=== PATIENT | female | born 1985 | race Caucasian/White ===

== ENCOUNTER 2016-11-28 17:07 | Emergency (ER) | payer MEDICAID ==
[~2016-11-28] VITALS: Ht 170.2 cm; Wt 65.8 kg
[~2016-11-28 17:07] MED LIST: ARIP10TA2 PO; BSP10T PO; BUPR100T6 PO; BUPR150T9 PO; BUTA-234 PO; BUTA1CAP39 PO; CIPR500T78 PO; CITA20TA12 PO; CLON0.5T PO; CYCL10TA9 PO; DOCU-143 PO; FAMO20TA5 PO; GABA-486 PO; HYDR-1231 PO; HYDR30CR71 RC; IBUP-1773 PO; LEVO750T9 PO; LITH600C PO; METR250T32 PO; METR500T PO; NAPR-243 PO; NAPR500T PO; NCT21TD TD; NITR-65 PO; OXYC-197 PO; PRED20TA PO; SIME80TA16 PO; TEMA30CA PO; TMZP15C GT; TRAM-21 PO; TRAM50TA2 PO; TRAZ-144 PO; TRL300 PO; TRM50T PO; VENL225T3 PO; WELLBUTRIN
[2016-11-28] MEDS ORDERED: LIDOCAINE 1% INJ 20 ML (XYLOCAINE) VIAL ONE (17:30)
--- NOTE | 2016-11-28 17:56 | ED Upper Extremity ---
General Chief Complaint: Laceration Stated Complaint: L HAND LAC Nursing Triage Note: LACERATION TO L HAND Nursing Sepsis Screen: No Definite Risk Source: patient Exam Limitations: no limitations History of Present Illness Time seen by provider: 17:50 Initial Comments This 31-year-old white female presents after deliberately sustaining a laceration to the hypothenar eminence of her left hand shortly prior to presentation to the emergency department on a sharp piece of plastic at home. Patient denies loss of sensation or range of motion of the affected extremity. She denies other injury interaction. Her last tetanus shot was 2 years ago. Pain/Injury Location: left hand Allergies and Home Medications Allergies Coded Allergies: Penicillins (Verified Allergy, Unknown, RASH, 11/27/13) Sulfa (Sulfonamide Antibiotics) (Unverified Allergy, Unknown, 12/10/13) iodine (Verified Allergy, Unknown, rash, itching, 03/09/15) latex (Verified Allergy, Unknown, RASH, 11/27/13) Home Medications Clonazepam 0.5 Mg Tablet, 0.5 MG PO TID, (Reported) Temazepam 30 Mg Capsule, 30 MG PO HS PRN for SLEEP, (Reported) Constitutional: No chills EENTM: No blurred vision Respiratory: No cough Gastrointestinal: No abdominal pain, No nausea Genitourinary: No decreased output, No dysuria, No frequency Musculoskeletal: No back pain, No joint pain Skin: No rash, No other (laceration left hand) Psychiatric/Neurological: Other (bipolar disease) Past Izhwynu-Abpwkh-Umtdsc Hx Patient Social History Alcohol Use: Denies Use Recreational Drug Use: No Smoking Status: Current Everyday Smoker Type Used: Cigarettes Recent Foreign Travel: No Contact w/Someone Who Travel: No Recent Infectious Disease Expo: No Recent Hopitalizations: No Immunizations Up To Date Tetanus Booster (TDap): Unknown Seasonal Allergies Seasonal Allergies: No Surgeries HX Surgeries: Yes (LIPOMA REMOVED FROM BACK) Surgeries: Hysterectomy, Tubal Ligation Respiratory Hx Respiratory Disorders: No Cardiovascular Hx Cardiac Disorders: No Cardiac Disorders: Hypertension Neurological Hx Neurological Disorders: Yes Neurological Disorders: Headaches /Migraines Reproductive System Hx Reproductive Disorders: Yes Sexually Transmitted Disease: Yes (HERPES, HX TRICHOMONAS) 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 CERVICAL CANCER--SELF REPORTED BY PT) Cancer: Cervical Psychosocial Hx Psychiatric Problems: Yes (PBA) Behavioral Health Disorders: ADD/ADHD, Anxiety, Bipolar, Depression Integumentary HX Skin/Integumentary Disorder: No Blood Transfusions Hx Blood Disorders: No Reviewed Nursing Assessment Reviewed/Agree w Nursing PMH: Yes Family Medical History Family Medial History: FH: cancer grandparents Psychosocial problem 19 MOTHER grandparents Physical Exam Vital Signs Vital Sign - Last 12Hours 11/28/16 17:13 Temp 98.4 Pulse 94 Resp 18 B/P (MAP) 109/82 Pulse Ox 97 Capillary Refill : Less Than 3 Seconds General Appearance: WD/WN HEENT: normal ENT inspection Neck: normal inspection Cardiovascular: regular rate, rhythm, No tachycardia Respiratory: no respiratory distress Hand: Left (there is a 3 cm laceration to the hypothenar eminence of the left hand. Fortunately there is a normal neurologic vascular and tendon exam.) Neurologic/Psychiatric: no motor/sensory deficits, alert, normal mood/affect, oriented x 3 Progress/Results/Core Measures Results/Orders My Orders Orders - LOIS FERRELL MD Lidocaine 1% Injection (Xylocaine 1% Inj (11/28/16 17:30) Vital Signs/I&O Vital Sign - Last 12Hours 11/28/16 17:13 Temp 98.4 Pulse 94 Resp 18 B/P (MAP) 109/82 Pulse Ox 97 Blood Pressure Mean: 91 Progress Note : Time: 17:55 Progress Note Under usual sterile conditions using Hibiclens for cleansing of the wound the laceration was prepped and draped and anesthetized with 1 percent plain Xylocaine. Accommodation of simple interrupted and horizontal mattress sutures were used to repair the laceration with 5-0 nylon. Approximately 6 sutures were used for closure. The wound was cleaned and dressed. Patient tolerated the procedure well. There is minimal blood loss was less than 10 mL. Departure Impression Impression: Primary Impression: Laceration Disposition: 01 HOME, SELF-CARE Condition: Improved Departure-Patient Inst. Decision time for Depature: 17:56 Referrals: [facility] (PCP/Family) Primary Care Physician Patient Instructions: Laceration Repair With Pritesh (DC) Add. Discharge Instructions: Sutures out in 7-10 days. Watch for signs of infection. Tylenol or ibuprofen for pain. Return if any problems. All discharge instructions reviewed with patient and/or family. Voiced understanding. LOIS FERRELL MD Nov 28, 2016 17:56
[2016-11-28 18:02] VITALS: BP 109/82
--- OUTSIDE RECORDS SUMMARY | 2017-01-01 06:29 | XMS REPORT ---
Author Author NASH WEISS [facility] eClinicalWorks Address Unknown Phone Unavailable Care Team Providers Care Bean Sprout Laborer Name Role Phone NASH WEISS Unavailable Allergies No Known Allergies Problems Problem Type Condition Code Onset Dates Condition Status Problem H/O galactorrhea Z87.59 Active Problem Migraine headache G43.909 Active Problem Dyspareunia N94.1 Active Problem Bipolar affective disorder F31.9 Active Assessment Trichomonas infection A59.9 Active Medications Medication Code System Code Instructions Start Date End Date Status Dosage Flagyl [facility] [address]-70 500 MG Orally once Aug 12, 2015 Aug 13, 2015 4 tablet Results No Known Results Summary Purpose eClinicalWorks Submission
--- OUTSIDE RECORDS SUMMARY | 2017-01-01 06:29 | XMS REPORT ---
Author DEVANG Ramírez [facility] eClinicalWorks Address Unknown Phone Unavailable Care Team Providers Care Enroller Name Role Phone DEVANG XIONG CP Unavailable Allergies, Adverse Reactions, Alerts Substance Reaction Event Type SulfADIAZINE Info Not Available Drug Allergy Iodine Info Not Available Drug Allergy Problems Problem Type Condition Code Onset Dates Condition Status Problem Unspecified symptom associated with female genital organs 625.9 Active Assessment Intractable migraine without aura and with status migrainosus G43.011 Active Problem Routine gynecological examination V72.31 Active Problem Screening examination for venereal disease V74.5 Active Problem Migraine headache G43.909 Active Problem Galactorrhea not associated with childbirth 611.6 Active Problem Screening for malignant neoplasm of the cervix V76.2 Active Problem Unspecified breast screening V76.10 Active Problem Dyspareunia 625.0 Active Medications Medication Code System Code Instructions Start Date End Date Status Dosage Latuda [facility] [address]-64 20 MG Orally Once a day 1 tablet Propranolol HCl [facility] [address]-44 10 MG Orally Twice a day 1 tablet Wellbutrin [facility] [address]-72 100 MG Orally Twice a day 1 tablet Claritin [facility] [address]-26 10 MG Orally Once a day Jun 19, 2015 1 tablet Fioricet [facility] [address]-77 50-300-40 MG Orally every 4 hrs 1 capsule as needed Topiramate [facility] [address]-99 50 MG Orally Twice a day Jun 29, 2015 1 tablet Imitrex [facility] [address]-51 25 MG Orally take 1 tab at onset of headache, may repeat in 2 hrs x1 if needed Jun 19, [address] Carbonate [facility] [address]-33 300 MG Orally 4 times a day 1 capsule Temazepam [facility] [address]-36 30 MG Orally Once a day 1 capsule at bedtime as needed Procedures Procedure Coding System Code Date Office Visit, Est Pt., Level 3 CPT-4 16140 Jun 29, 2015 Vital Signs Date/Time: Jun 29, 2015 Temperature 98.0 F Weight 136 lbs Height 66 in BMI 21.95 Index Blood Pressure Diastolic 66 mmHg Blood Pressure Systolic 110 mmHg Cardiac Monitoring Heart Rate 88 bpm Results No Known Results Summary Purpose eClinicalWorks Submission
--- OUTSIDE RECORDS SUMMARY | 2017-01-01 06:30 | XMS REPORT ---
Author Author NASH WEISS [facility] eClinicalWorks Address Unknown Phone Unavailable Care Team Providers Care Paint Crew Supervisor Name Role Phone NASH WEISS Unavailable Allergies, Adverse Reactions, Alerts Substance Reaction Event Type SulfADIAZINE Info Not Available Drug Allergy Iodine Info Not Available Drug Allergy Problems Problem Type Condition Code Onset Dates Condition Status Problem H/O galactorrhea Z87.59 Active Problem Migraine headache G43.909 Active Problem Dyspareunia N94.1 Active Assessment Vaginal burning N94.9 Active Assessment Vaginal discharge N89.8 Active Problem Bipolar affective disorder F31.9 Active Assessment Herpes simplex B00.9 Active Medications Medication Code System Code Instructions Start Date End Date Status Dosage Wellbutrin [facility] [address]-29 100 MG Orally Twice a day 1 tablet Temazepam [facility] [address]-57 30 MG Orally Once a day 1 capsule at bedtime as needed Latuda [facility] [address]-57 20 MG Orally Once a day 1 tablet Propranolol HCl [facility] [address]-19 10 MG Orally Twice a day 1 tablet Topiramate [facility] [address]-76 50 MG Orally Twice a day Jun 29, 2015 1 tablet [place] Carbonate [facility] [address]-97 300 MG Orally 4 times a day 1 capsule Claritin [facility] [address]-23 10 MG Orally Once a day Jun 19, 2015 1 tablet Imitrex [facility] [address]-52 25 MG Orally take 1 tab at onset of headache, may repeat in 2 hrs x1 if needed Jun 19, 2015 as directed Lidocaine HCl [facility] [address]-97 2 % Externally 3-4 times a day Aug 12, 2015 1 application to affected area as needed Valacyclovir HCl [facility] [address]-05 500 MG Orally every 12 hrs Aug 12, 2015 Aug 15, 2015 1 tablet Procedures Procedure Coding System Code Date TRICHOMONAS VAGIN, DIR PROBE CPT-4 42049 Aug 12, 2015 CULTURE, BACTERIA, OTHER CPT-4 99533 Aug 12, 2015 No Charge CPT-4 45461 Aug 12, 2015 Office Visit, Est Pt., Level 3 CPT-4 33380 Aug 12, 2015 Vital Signs Date/Time: Aug 12, 2015 Temperature 98.6 F Weight 129.5 lbs Height 66 in BMI 20.90 Index Blood Pressure Diastolic 68 mmHg Blood Pressure Systolic 112 mmHg Cardiac Monitoring Heart Rate 92 bpm Results Name Result Date Reference Range Unit Abnormality Flag TRICHOMONAS (IN HOUSE) ----TRICHOMONAS POSITIVE [id number] ----Control + [id number] ----Lot # [id number] ----Exp date [id number] Summary Purpose eClinicalWorks Submission
--- OUTSIDE RECORDS SUMMARY | 2017-01-01 06:31 | XMS REPORT ---
Author Author BENEDICT MON [facility] eClinicalWorks Address Unknown Phone Unavailable Care Team Providers Care Corporate Communications Specialist Name Role Phone BENEDICT MON Unavailable Allergies No Known Allergies Problems Problem Type Condition Code Onset Dates Condition Status Assessment Bipolar affective disorder F31.9 Active Problem Screening for malignant neoplasm of the cervix V76.2 Active Problem Unspecified symptom associated with female genital organs 625.9 Active Problem Bipolar affective disorder F31.9 Active Problem Routine gynecological examination V72.31 Active Problem Migraine headache G43.909 Active Problem Dyspareunia 625.0 Active Problem Galactorrhea not associated with childbirth 611.6 Active Problem Screening examination for venereal disease V74.5 Active Problem Unspecified breast screening V76.10 Active Medications Medication Code System Code Instructions Start Date End Date Status Dosage Claritin [facility] [address]-22 10 MG Orally Once a day Jun 19, 2015 1 tablet Imitrex [facility] [address]-80 25 MG Orally take 1 tab at onset of headache, may repeat in 2 hrs x1 if needed Jun 19, 2015 as directed Propranolol HCl [facility] [address]-71 10 MG Orally Twice a day 1 tablet Temazepam [facility] [address]-02 30 MG Orally Once a day 1 capsule at bedtime as needed Wellbutrin [facility] [address]-87 100 MG Orally Twice a day 1 tablet Latuda [facility] [address]-09 20 MG Orally Once a day 1 tablet Topiramate [facility] [address]-02 50 MG Orally Twice a day Jun 29, 2015 1 tablet [place] Carbonate [facility] [address]-52 300 MG Orally 4 times a day 1 capsule Procedures Procedure Coding System Code Date Psych diagnostic evaluation, established patient CPT-4 17270 Jul 07, 2015 Results No Known Results Summary Purpose eClinicalWorks Submission
--- OUTSIDE RECORDS SUMMARY | 2017-01-01 06:31 | XMS REPORT | Continuity of Care Document ---
Demographics Preferred Language Unknown Marital Status Unknown Protestant Affiliation Unknown Race Unknown Ethnic Group Unknown Author Author [facility] Organization [facility] Address Unknown Phone Unavailable Allergies Active Description Code Type Severity Reaction Onset Reported/Identified Relationship to Patient Clinical Status Yes latex [id number] Drug Allergy Unknown RASH 11/27/2013 Yes Penicillins [id number] Drug Allergy Unknown RASH 11/27/2013 Yes Sulfa (Sulfonamide Antibiotics) [id number] Drug Allergy Unknown N/A 12/10/2013 Yes iodine [id number] Drug Allergy Unknown rash, itching 03/09/2015 Medications Problems Date Dx Coded Attending Type Code Diagnosis Diagnosed By 07/27/1124 SHEREEN COLEMAN, INES Tse Ot M79.1 MYALGIA 11/27/2013 SHAI TOVAR DO Ot 611.71 12/10/2013 PHIL COLEMAN, JERMAN A Ot 346.90 12/10/2013 PHIL COLEMAN, JERMAN A Ot 784.0 01/11/2014 PHIL COLEMAN, JERMAN A Ot 346.90 01/11/2014 PHIL COLEMAN, JERMAN A Ot 784.0 02/16/2014 DONNA COLEMAN, MCKAYLA Gavin Ot 724.1 02/16/2014 DONNA COLEMAN, MCKAYLA T Ot 728.85 03/06/2014 PHIL COLEMAN, JERMAN A Ot 784.0 03/17/2014 GENEVIEVE BUSTOS APRN A 611.6 GALACTORRHEA NOT ASSOCIATED WITH CHILDBIRTH 03/17/2014 GENEVIEVE BUSTOS APRN A 625.0 DYSPAREUNIA 03/17/2014 GENEVIEVE BUSTOS APRN A V72.31 DENTAL COORDINATOR EXAM, ROUTINE 03/17/2014 GENEVIEVE BUSTOS APRN A V74.5 STD SCREEN 03/17/2014 GENEVIEVE BUSTOS APRN A V76.10 BREAST CANCER SCREENING 03/17/2014 GENEVIEVE BUSTOS APRN A V76.2 CERVICAL CANCER SCREENING (PAP SMEAR) 03/17/2014 DENISSE DUNN MD 611.6 GALACTORRHEA NOT ASSOCIATED WITH CHILDBIRTH 03/17/2014 DENISSE DUNN MD 625.0 DYSPAREUNIA 03/17/2014 DENISSE DUNN MD V72.31 DENTAL COORDINATOR EXAM, ROUTINE 03/17/2014 DENISSE DUNN MD V74.5 STD SCREEN 03/17/2014 DENISSE DUNN MD V76.10 BREAST CANCER SCREENING 03/17/2014 DENISSE DUNN MD V76.2 CERVICAL CANCER SCREENING (PAP SMEAR) 03/17/2014 WHITE DDS, CHRISTINE J 611.6 GALACTORRHEA NOT ASSOCIATED WITH CHILDBIRTH 03/17/2014 WHITE DDS, CHRISTINE J 625.0 DYSPAREUNIA 03/17/2014 WHITE DDS, CHRISTINE J V72.31 DENTAL COORDINATOR EXAM, ROUTINE 03/17/2014 WHITE DDS, CHRISTINE J V74.5 STD SCREEN 03/17/2014 WHITE DDS, CHRISTINE J V76.10 BREAST CANCER SCREENING 03/17/2014 WHITE DDSRACHELLEON J V76.2 CERVICAL CANCER SCREENING (PAP SMEAR) 03/26/2014 DEVANG HAMILTON DO Ot 296.20 03/26/2014 DEVANG HAMILTON DO Ot V62.84 04/08/2014 ANDREA JOSHUA EQUIPMENT HIRE MANAGER Ot 784.0 04/09/2014 PEDRITO VINSON Ot 346.90 04/18/2014 DENISSE DUNN MD 625.9 PELVIC PAIN 04/18/2014 CHRISTINE BYRNE DDS 625.9 PELVIC PAIN 05/14/2014 DAO GARCIA MD Ot 787.01 05/20/2014 DAO GARCIA MD Ot 923.20 05/20/2014 DAO GARCIA MD Ot 959.4 05/20/2014 DAO GARCIA MD Ot E000.8 05/20/2014 DAO GARCIA MD Ot E849.0 05/20/2014 DAO GARCIA MD Ot E917.4 05/24/2014 ANDREA JOSHUA APRN Ot 923.20 05/24/2014 ANDREA JOSHUA APRN Ot 959.4 05/24/2014 ANDREA JOSHUA APRN Ot E000.8 05/24/2014 ANDREA JOSHUA APRN Ot E849.0 05/24/2014 ANDREA JOSHUA EQUIPMENT HIRE MANAGER Ot E917.4 07/31/2014 LUAN RAMIREZ EQUIPMENT HIRE MANAGER Ot V58.69 07/31/2014 JAMES LUAN R EQUIPMENT HIRE MANAGER Ot V58.83 08/18/2014 ANDREA JOSHUA EQUIPMENT HIRE MANAGER Ot 943.01 08/18/2014 ANDREA JOSHUA EQUIPMENT HIRE MANAGER Ot E000.8 08/18/2014 ANDREA JOSHUA EQUIPMENT HIRE MANAGER Ot E015.9 08/18/2014 ANDREA JOSHUA EQUIPMENT HIRE MANAGER Ot E849.0 08/18/2014 ANDREA JOSHUA EQUIPMENT HIRE MANAGER Ot E924.0 09/03/2014 JAMES LUAN R EQUIPMENT HIRE MANAGER Ot V58.69 09/03/2014 LUAN RAMIREZ R EQUIPMENT HIRE MANAGER Ot V58.83 09/20/2014 PHIL COLEMAN, JERMAN A Ot 784.0 09/24/2014 [facility] SHAI K Ot 346.90 09/24/2014 [facility] SHAI K Ot 784.0 11/16/2014 LUAN RAMIREZ EQUIPMENT HIRE MANAGER Ot V58.69 11/16/2014 LUAN RAMIREZ EQUIPMENT HIRE MANAGER Ot V58.83 11/17/2014 JOSE COLEMAN, DAO D Ot 729.5 11/17/2014 JOSE COLEMAN, DAO D Ot 923.20 11/17/2014 JOSE COLEMAN, ADO D Ot E000.8 11/17/2014 JOSE COLEMAN, DAO D Ot E849.0 11/17/2014 JOSE COLEMAN, DAO D Ot E888.9 01/19/2015 PEDRITO VINSON Ot 346.90 01/19/2015 PEDRITO VINSON Ot 784.0 01/25/2015 JOSE COLEMAN, DAO D Ot 845.00 01/25/2015 JOSE COLEMAN, DAO D Ot 959.7 01/25/2015 JOSE COLEMAN, DAO D Ot E001.1 01/25/2015 DAO GARCIA MD D Ot E927.0 01/25/2015 [place] , SHAI K Ot 845.00 01/25/2015 [facility], SHAI K Ot E001.1 01/25/2015 [facility], SHAI K Ot E927.0 01/25/2015 [place] , SHAI K Ot V15.81 02/09/2015 DONNA COLEMAN, MCKAYLA T Ot 719.47 02/09/2015 DONNA COLEMAN, MCKAYLA T Ot 824.2 02/09/2015 DONNA COLEMAN, MCKAYLA T Ot E000.8 02/09/2015 DONNA COLEMAN, MCKAYLA T Ot E885.9 03/08/2015 STAMARYANA, LUAN R EQUIPMENT HIRE MANAGER Ot V58.69 03/08/2015 STAMMER, LUAN R EQUIPMENT HIRE MANAGER Ot V58.83 03/08/2015 [place] DO, SHAI K Ot 614.9 03/08/2015 [place] DO, SHAI K Ot 620.2 03/08/2015 [facility], SHAI K Ot 789.00 03/08/2015 STAMMER, LUAN R EQUIPMENT HIRE MANAGER Ot V58.69 03/08/2015 STAMARYANA, LUAN R EQUIPMENT HIRE MANAGER Ot V58.83 03/09/2015 PEDRITO VINSON Ot 708.9 03/09/2015 PEDRITO VINSON Ot 782.1 03/18/2015 STAMARYANA LUAN R EQUIPMENT HIRE MANAGER Ot V58.69 03/18/2015 STAMARYANA, LUAN R EQUIPMENT HIRE MANAGER Ot V58.83 03/18/2015 ANDREA JOSHUA EQUIPMENT HIRE MANAGER Ot 892.0 03/18/2015 ANDREA JOSHUA EQUIPMENT HIRE MANAGER Ot E000.8 03/18/2015 ANDREA JOSHUA EQUIPMENT HIRE MANAGER Ot E920.8 03/18/2015 ANDREA JOSHUA EQUIPMENT HIRE MANAGER Ot V06.1 03/31/2015 LUAN RAMIREZ R EQUIPMENT HIRE MANAGER Ot V58.69 03/31/2015 STAMARYANA LUAN R EQUIPMENT HIRE MANAGER Ot V58.83 03/31/2015 PEDRITO VINSON Ot 847.9 03/31/2015 PEDRITO VINSON Ot 959.19 03/31/2015 PEDRITO VINSON Ot E000.8 03/31/2015 PEDRITO VINSON Ot E013.5 03/31/2015 PEDRITO VINSON Ot E849.0 03/31/2015 PEDRITO VINSON Ot E927.0 06/09/2015 SHAI TOVAR DO Ot R51 06/14/2015 DAO GARCIA MD Ot G43.909 MIGRAINE, UNSP, NOT INTRACTABLE, WITHOUT 06/14/2015 DAO GARCIA MD Ot R51 HEADACHE 06/30/2015 LUAN RAMIREZ EQUIPMENT HIRE MANAGER Ot V58.69 06/30/2015 STALUAN MIJARES EQUIPMENT HIRE MANAGER Ot V58.83 08/18/2015 DAO GARCIA MD Ot B00.2 HERPESVIRAL GINGIVOSTOMATITIS AND PHARYN 08/18/2015 DAO GARCIA MD Ot K64.9 UNSPECIFIED HEMORRHOIDS 10/21/2015 ANDREA JOSHUA APRN Ot F17.210 NICOTINE DEPENDENCE, CIGARETTES, UNCOMPL 10/21/2015 ANDREA JOSHUA APRN Ot S60.221A CONTUSION OF RIGHT HAND, INITIAL ENCOUNT 10/21/2015 ANDREA JOSHUA APRN Ot W22.09XA STRIKING AGAINST OTHER STATIONARY OBJECT 10/21/2015 ANDREA JOSHUA APRN Ot Y92.010 KITCHEN OF SINGLE-FAMILY (PRIVATE) HOUSE 10/21/2015 ANDREA JOSHUA APRN Ot Y99.8 OTHER EXTERNAL CAUSE STATUS 12/31/2015 MCKAYLA THOMPSON MD Ot F17.210 NICOTINE DEPENDENCE, CIGARETTES, UNCOMPL 12/31/2015 MCKAYLA THOMPSON MD Ot N39.0 URINARY TRACT INFECTION, SITE NOT SPECIF 12/31/2015 MCKAYLA THOMPSON MD Ot R10.84 GENERALIZED ABDOMINAL PAIN 01/08/2016 MCKAYLA THOMPSON MD Ot A59.03 TRICHOMONAL CYSTITIS AND URETHRITIS 01/08/2016 MCKAYLA THOMPSON MD Ot F17.210 NICOTINE DEPENDENCE, CIGARETTES, UNCOMPL 01/08/2016 MCKAYLA THOMSPON MD Ot N72 INFLAMMATORY DISEASE OF CERVIX UTERI 01/08/2016 MCKAYLA THOMPSON MD Ot N93.9 ABNORMAL UTERINE AND VAGINAL BLEEDING , U 01/08/2016 MCKAYLA THOMPSON MD Ot A59.03 TRICHOMONAL CYSTITIS AND URETHRITIS 01/08/2016 MCKAYLA THOMPSON MD Ot F17.210 NICOTINE DEPENDENCE, CIGARETTES, UNCOMPL 01/08/2016 DONNA COLEMAN, MCKAYLA Gavin Ot N72 INFLAMMATORY DISEASE OF CERVIX UTERI 01/08/2016 DONNA COLEMAN, MCKAYLA Gavin Ot N93.9 ABNORMAL UTERINE AND VAGINAL BLEEDING , U 01/10/2016 PEDRITO VINSON Ot F17.210 NICOTINE DEPENDENCE, CIGARETTES, UNCOMPL 01/10/2016 PEDRITO VINSON Ot N89.8 OTHER SPECIFIED NONINFLAMMATORY DISORDER 01/10/2016 PEDRITO VINSON Ot N92.0 EXCESSIVE AND FREQUENT MENSTRUATION WITH 01/12/2016 PEDRITO VINSON Ot F17.210 NICOTINE DEPENDENCE, CIGARETTES, UNCOMPL 01/12/2016 PEDRITO VINSON Ot N89.8 OTHER SPECIFIED NONINFLAMMATORY DISORDER 01/12/2016 PEDRITO VINSON Ot N92.0 EXCESSIVE AND FREQUENT MENSTRUATION WITH 01/16/2016 PEDRITO VINSON Ot F17.210 NICOTINE DEPENDENCE, CIGARETTES, UNCOMPL 01/16/2016 PEDRITO VINSON Ot N89.8 OTHER SPECIFIED NONINFLAMMATORY DISORDER 01/16/2016 PEDRITO VINSON Ot N92.0 EXCESSIVE AND FREQUENT MENSTRUATION WITH 01/19/2016 DAO GARCIA MD Ot F17.210 NICOTINE DEPENDENCE, CIGARETTES, UNCOMPL 01/19/2016 DAO GARCIA MD Ot S93.402A SPRAIN OF UNSPECIFIED LIGAMENT OF LEFT A 01/19/2016 DAO GARCIA MD Ot W01.0XXA FALL SAME LEV FROM SLIP/TRIP W/O STRIKE 01/19/2016 DAO GARCIA MD Ot Y99.8 OTHER EXTERNAL CAUSE STATUS 02/28/2016 SHAI TOVAR DO Ot F10.129 ALCOHOL ABUSE WITH INTOXICATION, UNSPECI 02/28/2016 SHAI TOVAR DO Ot R46.89 OTHER SYMPTOMS AND SIGNS INVOLVING APPEA 02/28/2016 SHAI TOVAR DO Ot Y90.7 BLOOD ALCOHOL LEVEL OF 200-239 MG/100 ML 03/01/2016 SHEREEN COLEMAN, INES Tse Ot N87.1 MODERATE CERVICAL DYSPLASIA 03/01/2016 INES REGAN MD Ot N93.9 ABNORMAL UTERINE AND VAGINAL BLEEDING, U 03/01/2016 SHEREEN COLEMAN INES N Ot N94.1 DYSPAREUNIA 03/01/2016 SHEREEN COLEMAN INES N Ot R10.2 PELVIC AND PERINEAL PAIN 03/01/2016 SHEREEN COLEMAN INES N Ot Z01.818 ENCOUNTER FOR OTHER PREPROCEDURAL EXAMIN 03/01/2016 SHEREEN COLEMAN INES N Ot Z11.2 ENCOUNTER FOR SCREENING FOR OTHER BACTER 03/02/2016 SHEREEN COLEMAN INES N Ot N87.1 MODERATE CERVICAL DYSPLASIA 03/02/2016 SHEREEN COLEMAN INES N Ot N93.9 ABNORMAL UTERINE AND VAGINAL BLEEDING, U 03/02/2016 SHEREEN COLEMAN INES N Ot N94.1 DYSPAREUNIA 03/02/2016 SHEREEN COLEMAN INES N Ot R10.2 PELVIC AND PERINEAL PAIN 03/02/2016 SHEREEN COLEMAN INES N Ot Z01.818 ENCOUNTER FOR OTHER PREPROCEDURAL EXAMIN 03/02/2016 SHEREEN COLEMAN INES N Ot Z11.2 ENCOUNTER FOR SCREENING FOR OTHER BACTER 03/08/2016 SHEREEN COLEMAN INES N Ot N87.0 MILD CERVICAL DYSPLASIA 03/10/2016 SHEREEN COLEMAN INES N Ot N87.0 MILD CERVICAL DYSPLASIA 03/26/2016 SHEREEN COLEMAN INES N Ot F17.210 NICOTINE DEPENDENCE, CIGARETTES, UNCOMPL 03/26/2016 SHEREEN COLEMAN INES N Ot I10 ESSENTIAL (PRIMARY) HYPERTENSION 03/26/2016 SHEREEN COLMEAN INES N Ot N76.0 ACUTE VAGINITIS 03/26/2016 SHEREEN COLEMAN INES N Ot T81.4XXA INFECTION FOLLOWING A PROCEDURE, INITIAL 03/26/2016 SHEREEN COLEMAN INES N Ot F17.210 NICOTINE DEPENDENCE, CIGARETTES, UNCOMPL 03/26/2016 SHEREEN COLEMAN INES N Ot I10 ESSENTIAL (PRIMARY) HYPERTENSION 03/26/2016 SHEREEN COLEMAN INES N Ot N76.0 ACUTE VAGINITIS 03/26/2016 SHEREEN COLEMAN INES N Ot T81.4XXA INFECTION FOLLOWING A PROCEDURE, INITIAL 03/28/2016 SHEREEN COLEMAN INES N Ot N89.8 OTHER SPECIFIED NONINFLAMMATORY DISORDER 03/28/2016 SHEREEN COLEMAN INES N Ot R10.9 UNSPECIFIED ABDOMINAL PAIN 03/28/2016 SHEREEN COLEMAN INES N Ot Z98.89 OTHER SPECIFIED POSTPROCEDURAL STATES 03/31/2016 SHEREEN COLEMAN INES N Ot N89.8 OTHER SPECIFIED NONINFLAMMATORY DISORDER 03/31/2016 SHEREEN COLEMAN INES N Ot R10.9 UNSPECIFIED ABDOMINAL PAIN 03/31/2016 SHEREEN COLEMAN INES N Ot Z98.89 OTHER SPECIFIED POSTPROCEDURAL STATES 04/01/2016 SHEREEN COLEMAN INES N Ot N89.8 OTHER SPECIFIED NONINFLAMMATORY DISORDER 04/01/2016 SHEREEN COLEMAN INES N Ot R10.9 UNSPECIFIED ABDOMINAL PAIN 04/01/2016 SHEREEN COLEMAN INES N Ot Z98.89 OTHER SPECIFIED POSTPROCEDURAL STATES 04/04/2016 SHEREEN COLEMAN INES N Ot N89.8 OTHER SPECIFIED NONINFLAMMATORY DISORDER 04/04/2016 SHEREEN COLEMAN INES N Ot R10.9 UNSPECIFIED ABDOMINAL PAIN 04/04/2016 SHEREEN COLEMAN INES N Ot Z98.89 OTHER SPECIFIED POSTPROCEDURAL STATES 04/12/2016 SHEREEN COLEMAN INES N Ot N89.8 OTHER SPECIFIED NONINFLAMMATORY DISORDER 04/12/2016 SHEREEN COLEMAN INES N Ot R10.9 UNSPECIFIED ABDOMINAL PAIN 04/12/2016 SHEREEN COLEMAN INES N Ot Z98.89 OTHER SPECIFIED POSTPROCEDURAL STATES 06/23/2016 SHEREEN COLEMAN INES N Ot N94.12 DEEP DYSPAREUNIA 06/23/2016 SHEREEN COLEMAN INES N Ot R10.2 PELVIC AND PERINEAL PAIN 06/24/2016 SHEREEN COLEMAN INES N Ot N89.8 OTHER SPECIFIED NONINFLAMMATORY DISORDER 06/24/2016 SHEREEN COLEMAN INES N Ot R10.9 UNSPECIFIED ABDOMINAL PAIN 06/24/2016 SHEREEN COLEMAN INES N Ot Z98.89 OTHER SPECIFIED POSTPROCEDURAL STATES 06/24/2016 SHEREEN COLEMAN INES N Ot N94.12 DEEP DYSPAREUNIA 06/24/2016 SHEREEN COLEMAN INES N Ot R10.2 PELVIC AND PERINEAL PAIN 07/05/2016 SHEREEN COLEMAN INES N Ot N89.8 OTHER SPECIFIED NONINFLAMMATORY DISORDER 07/05/2016 SHEREEN COLEMAN INES N Ot R10.9 UNSPECIFIED ABDOMINAL PAIN 07/05/2016 SHEREEN COLEMAN INES N Ot Z98.89 OTHER SPECIFIED POSTPROCEDURAL STATES 07/05/2016 SHEREEN COLEMAN INES N Ot N94.12 DEEP DYSPAREUNIA 07/05/2016 SHEREEN COLEMAN INES N Ot R10.2 PELVIC AND PERINEAL PAIN 07/12/2016 SHEREEN COLEMAN INES N Ot N94.12 DEEP DYSPAREUNIA 07/12/2016 SHEREEN COLEMAN INES N Ot R10.2 PELVIC AND PERINEAL PAIN 07/14/2016 SHEREEN COLEMAN INES N Ot M79.1 MYALGIA 07/15/2016 SHEREEN COLEMAN INES N Ot M79.1 MYALGIA 07/19/2016 SHEREEN COLEMAN INES N Ot M79.1 MYALGIA 08/10/2016 SHEREEN COLEMAN, INES N Ot M79.1 MYALGIA 08/18/2016 SHEREEN COLEMAN INES N Ot M79.1 MYALGIA 11/28/2016 SHEREEN COLEMAN INES N Ot N89.8 OTHER SPECIFIED NONINFLAMMATORY DISORDER 11/28/2016 SHEREEN COLEMAN INES N Ot R10.9 UNSPECIFIED ABDOMINAL PAIN 11/28/2016 SHEREEN COLEMAN, INES N Ot Z98.89 OTHER SPECIFIED POSTPROCEDURAL STATES 11/28/2016 SHEREEN COLEMAN INES N Ot N94.12 DEEP DYSPAREUNIA 11/28/2016 SHEREEN COLEMAN INES N Ot R10.2 PELVIC AND PERINEAL PAIN 11/28/2016 MARIAELENA COLEMAN, LOIS Espinosa Ot F17.210 NICOTINE DEPENDENCE, CIGARETTES, UNCOMPL 11/28/2016 LOIS FERRELL MD Ot I10 ESSENTIAL (PRIMARY) HYPERTENSION 11/28/2016 LOIS FERRELL MD Ot S61.412A LACERATION WITHOUT FOREIGN BODY OF LEFT 11/28/2016 LOIS FERRELL MD Ot W45.8XXA OT FOREIGN BODY OR OBJECT ENTERING THRO 11/28/2016 LOIS FERRELL MD Ot Y92.[address] IN UNSP NON-INSTITUT (PRIVATE 11/28/2016 LOIS FERRELL MD Ot Y99.8 OTHER EXTERNAL CAUSE STATUS 11/28/2016 LOIS FERRELL MD Ot Z79.899 OTHER ASSISTED (CURRENT) DRUG THERAPY Procedures Code Description [place] [address] TRICHOMONAS (IN-HOUSE) 03/17/2014 61022 HEMOCCULT 2013 66037 CULTURE UROGENITAL 03/20/2014 70237 GC/CHLAM PROBE (STATE) 03/20/2014 78786 PAP SMEAR 2013 Q0091 PAP SMEAR OBTAIN SMEAR 03/20/2014 92397 ROUTINE VENIPUNCTURE 03/20/2014 81786 PROLACTIN 2013 40430 TSH 03/20/2014 16757 UA W/ CULTURE IF INDICATED 04/18/2014 83916 TEST, URINE (IN-HOUSE) 04/18/2014 Results Test Result Range Complete urinalysis with reflex to culture - 03/25/16 14:20 Urine color determination YELLOW NRG Urine clarity determination CLEAR NRG Urine pH measurement by test strip 7 5- 9 Specific gravity of urine by test strip 1.010 1.016-1.022 Urine protein assay by test strip, semi-quantitative NEGATIVE NEGATIVE Urine glucose detection by automated test strip NEGATIVE NEGATIVE Erythrocytes detection in urine sediment by light microscopy 4+ NEGATIVE Urine ketones detection by automated test strip NEGATIVE NEGATIVE Urine nitrite detection by test strip NEGATIVE NEGATIVE Urine total bilirubin detection by test strip NEGATIVE NEGATIVE Urine urobilinogen measurement by automated test strip (mass/volume) NORMAL NORMAL Urine leukocyte esterase detection by dipstick 3+ NEGATIVE Automated urine sediment erythrocyte count by microscopy (number/high power field) [HPF] NRG Automated urine sediment leukocyte count by microscopy (number/high power field ) [HPF] NRG Bacteria detection in urine sediment by light microscopy NEGATIVE NRG Squamous epithelial cells detection in urine sediment by light microscopy 10-25 NRG Crystals detection in urine sediment by light microscopy NONE NRG Casts detection in urine sediment by light microscopy NONE NRG Mucus detection in urine sediment by light microscopy NEGATIVE NRG Complete urinalysis with reflex to culture NO NRG Bacterial urine culture - 03/25/16 14:20 URINE CULTURE RESULTS 10,000/ML - 100,000/ML NRG Complete blood count (CBC) with automated white blood cell (WBC) differential - 03/26/16 05:30 Blood leukocytes automated count (number/volume) 7.4 10*3/ uL 4.3-11.0 Blood erythrocytes automated count (number/volume) 4.40 10*6 /uL 4.35-5.85 Venous blood hemoglobin measurement (mass/volume) 12.8 g/dL 11.5-16.0 Blood hematocrit (volume fraction) 38 % 35-52 Automated erythrocyte mean corpuscular volume 87 [foz_us] 80-99 Automated erythrocyte mean corpuscular hemoglobin (mass per erythrocyte) 29 pg 25-34 Automated erythrocyte mean corpuscular hemoglobin concentration measurement ( mass/volume) 34 g/dL 32-36 Automated erythrocyte distribution width ratio 12.6 % 10.0-14.5 Automated blood platelet count (count/volume) 321 10*3/uL 130-400 Automated blood platelet mean volume measurement 9.6 [foz_us ] 7.4-10.4 Automated blood neutrophils/100 leukocytes 48 % 42-75 Automated blood lymphocytes/100 leukocytes 38 % 12-44 Blood monocytes/100 leukocytes 9 % 0-12 Automated blood eosinophils/100 leukocytes 4 % 0-10 Automated blood basophils/100 leukocytes 0 % 0-10 Blood neutrophils automated count (number/volume) 3.6 10*3 1.8-7.8 Blood lymphocytes automated count (number/volume) 2.9 10*3 1.0-4.0 Blood monocytes automated count (number/volume) 0.7 10*3 0.0-1.0 Automated eosinophil count 0.3 10*3/uL 0.0-0.3 Automated blood basophil count (count/volume) 0.0 10*3/uL 0.0-0.1 Encounters ACCT No. Visit Date/Time Discharge Status Pt. Type Provider Facility Loc./Unit Complaint [id number] 05/22/2014 11:19:26 05/22/2014 23: 59:59 [facility] Outpatient Daniela Guidry
--- OUTSIDE RECORDS SUMMARY | 2017-01-01 06:32 | XMS REPORT ---
Author Author DENISSE DUNN [facility] eClinicalWorks Address Unknown Phone Unavailable Care Team Providers Care Enologist Name Role Phone DENISSE DUNN CP Unavailable Allergies, Adverse Reactions, Alerts Substance Reaction Event Type SulfADIAZINE Info Not Available Drug Allergy Problems Problem Type Condition ICD-9 Code Onset Dates Condition Status Assessment Candidal vaginitis 112.1 Active Assessment Vaginitis 616.10 Active Problem Screening examination for venereal disease V74.5 Active Problem Unspecified breast screening V76.10 Active Problem Routine gynecological examination V72.31 Active Problem Screening for malignant neoplasm of the cervix V76.2 Active Problem Unspecified symptom associated with female genital organs 625.9 Active Problem Dyspareunia 625.0 Active Problem Galactorrhea not associated with childbirth 611.6 Active Medications Medication Code System Code Instructions Start Date End Date Status Dosage Celexa [facility] [address]-08 40 MG Orally Once a day 0.5 tablet [place] Carbonate [facility] [address]-37 300 MG Orally 4 times a day 1 capsule Diflucan [facility] [address]-99 150 MG Orally Apr 29, 2015 1 tablet Wellbutrin [facility] [address]-85 100 MG Orally Twice a day 1 tablet Procedures Procedure Coding System Code Date No Charge CPT-4 31924 Apr 29, 2015 CULTURE, BACTERIA, OTHER CPT-4 64346 Apr 29, 2015 TRICHOMONAS VAGIN, DIR PROBE CPT-4 90944 Apr 29, 2015 Office Visit, Est Pt., Level 3 CPT-4 11940 Apr 29, 2015 Vital Signs Date/Time: Apr 29, 2015 Temperature 97.8 F Weight 127.6 lbs Height 66 in BMI 20.59 Index Blood Pressure Diastolic 64 mmHg Blood Pressure Systolic 102 mmHg Cardiac Monitoring Heart Rate 74 bpm Results Name Result Date Reference Range Unit Abnormality Flag TRICHOMONAS (IN HOUSE) Summary Purpose eClinicalWorks Submission
--- OUTSIDE RECORDS SUMMARY | 2017-01-01 06:33 | XMS REPORT ---
Author DEVANG Ramírez [facility] eClinicalWorks Address Unknown Phone Unavailable Care Team Providers Care Machine Iii Coremaker Name Role Phone DEVANG XIONG CP Unavailable Allergies, Adverse Reactions, Alerts Substance Reaction Event Type SulfADIAZINE Info Not Available Drug Allergy Iodine Info Not Available Drug Allergy Problems Problem Type Condition Code Onset Dates Condition Status Assessment Migraine without aura and without status migrainosus, not intractable G43.009 Active Problem Screening for malignant neoplasm of [...] Instructions Start Date End Date Status Dosage Topiramate [facility] [address]-49 50 MG Orally Twice a day Jun 29, 2015 1 tablet Imitrex [facility] [address]-35 25 MG Orally take 1 tab at onset of headache, may repeat in 2 hrs x1 if needed Jun 19, 2015 as directed Temazepam [facility] [address]-06 30 MG Orally Once a day 1 capsule at bedtime as needed Claritin [facility] [address]-42 10 MG Orally Once a day Jun 19, 2015 1 tablet Wellbutrin [facility] [address]-25 100 MG Orally Twice a day 1 tablet Latuda [facility] [address]-01 20 MG Orally Once a day 1 tablet [place] Carbonate [facility] [address]-13 300 MG Orally 4 times a day 1 capsule Propranolol HCl [facility] [address]-66 10 MG Orally Twice a day 1 tablet Procedures Procedure Coding System Code Date Office Visit, Est Pt., Level 3 CPT-4 26063 Aug 05, 2015 Vital Signs Date/Time: Aug 05, 2015 Temperature 98.4 F Weight 129.8 lbs Height 66 in BMI 20.95 Index Blood Pressure Diastolic 72 mmHg Blood Pressure Systolic 116 mmHg Cardiac Monitoring Heart Rate 100 bpm Results No Known Results Summary Purpose eClinicalWorks Submission
--- OUTSIDE RECORDS SUMMARY | 2017-01-01 06:33 | XMS REPORT ---
Author Author ILDEFONSO PIERCE Organization e[employer] Address Unknown Phone Unavailable Care Team Providers Care Instructional Assistant Name Role Phone ILDEFONSO PIERCE CP Unavailable Allergies, Adverse Reactions, Alerts Substance Reaction Event Type SulfADIAZINE Info Not Available Drug Allergy Iodine Info Not Available Drug Allergy Problems Problem Type Condition Code Onset Dates Condition Status Problem H/O galactorrhea Z87.59 Active Problem Migraine headache G43.909 Active Problem Dyspareunia N94.1 Active Problem Bipolar affective disorder F31.9 Active Assessment Migraine G43.909 Active Medications Medication Code System Code Instructions Start Date End Date Status Dosage [place] Carbonate [facility] [address]-20 300 MG Orally 4 times a day 1 capsule Imitrex [facility] [address]-97 25 MG Orally take 1 tab at onset of headache, may repeat in 2 hrs x1 if needed Jun 19, 2015 as directed Wellbutrin [facility] [address]-19 100 MG Orally Twice a day 1 tablet Latuda [facility] [place] [address]-75 20 MG Orally Once a day 1 tablet Temazepam [facility] [place] [address]-78 30 MG Orally Once a day 1 capsule at bedtime as needed Procedures Procedure Coding System Code Date THER/PROPH/DIAG INJ, SC/IM CPT-4 82843 Sep 05, 2015 Office Visit, Est Pt., Level 3 CPT-4 09154 Sep 05, 2015 TORADOL (IM) 60 MG/2ML (UP TO 15 MG) CPT-4 J1885 Sep 05, 2015 Vital Signs Date/Time: Sep 05, 2015 Temperature 99.2 F Weight 130.4 lbs Height 66 in BMI 21.04 Index Blood Pressure Diastolic 70 mmHg Blood Pressure Systolic 118 mmHg Cardiac Monitoring Heart Rate 88 bpm Results No Known Results Summary Purpose eClinicalWorks Submission
--- OUTSIDE RECORDS SUMMARY | 2017-01-01 06:34 | XMS REPORT ---
Author Author DEVANG XIONG Organization [employer] Address Unknown Phone Unavailable Care Team Providers Care Mandarin Speaking Nanny Name Role Phone DEVANG XIONG CP Unavailable Allergies, Adverse Reactions, Alerts Substance Reaction Event Type Latex Info Not Available Drug Allergy SulfADIAZINE Info Not Available Drug Allergy Iodine Info Not Available Drug Allergy Problems Problem Type Condition Code Onset Dates Condition Status Problem Dyspareunia N94.1 Active Problem H/O galactorrhea Z87.59 Active Problem Migraine with aura and without status migrainosus, not intractable G43.109 Active Assessment Migraine with aura and without status migrainosus, not intractable G43.109 Active Problem Migraine headache G43.909 Active Problem Bipolar affective disorder F31.9 Active Medications Medication Code System Code Instructions Start Date End Date Status Dosage Imitrex [facility] [address]-38 100 MG Orally Once a day Jul 22, 2016 1 tablet as needed Klonopin [facility] [address]-87 0.5 MG Orally 3 times a day 1 tablet Lamictal [facility] [address]-62 25 MG Orally Once a day 2 tablets Temazepam [facility] [address]-20 30 MG Orally Once a day 1 capsule at bedtime as needed Minipress [facility] [address]-14 2 MG Orally Once a day 2 capsules Wellbutrin [facility] [address]-16 100 MG Orally Twice a day 1 tablet Hzvxbjtnuc-SVJL-Dmkrklhh [facility] [address]-98 50-325-40 MG Orally every 4 hrs Jul 22, 2016 1 capsule as needed Procedures Procedure Coding System Code Date Office Visit, Est Pt., Level 3 CPT-4 38799 Jul 22, 2016 Vital Signs Date/Time: Jul 22, 2016 Cardiac Monitoring Heart Rate 100 bpm Weight 140.5 lbs Height 66 in BMI 22.67 Index Blood Pressure Diastolic 81 mmHg Blood Pressure Systolic 120 mmHg Results No Known Results Summary Purpose [employer] Submission
--- OUTSIDE RECORDS SUMMARY | 2017-01-01 06:34 | XMS REPORT ---
Author Author KAREN FULLER [facility] [employer] Address Unknown Phone Unavailable Care Team Providers Care Strategic Analyst Name Role Phone KAREN FULLER CP Unavailable Allergies, Adverse Reactions, Alerts Substance Reaction Event Type SulfADIAZINE Info Not Available Drug Allergy Iodine Info Not Available Drug Allergy Problems Problem Type Condition Code Onset Dates Condition Status Problem Unspecified symptom associated with female genital organs 625.9 Active Assessment Migraine headache G43.909 Active Problem Routine gynecological examination V72.31 Active Problem Screening examination for venereal disease V74.5 Active Problem Migraine headache G43.909 Active Problem Galactorrhea not associated with childbirth 611.6 Active Problem Screening for malignant neoplasm of the cervix V76.2 Active Problem Unspecified breast screening V76.10 Active Problem Dyspareunia 625.0 Active Medications Medication Code System Code Instructions Start Date End Date Status Dosage Temazepam [facility] [address]-79 30 MG Orally Once a day 1 capsule at bedtime as needed Wellbutrin [facility] [address]-29 100 MG Orally Twice a day 1 tablet Imitrex [facility] [address]-69 25 MG Orally take 1 tab at onset of headache, may repeat in 2 hrs x1 if needed Jun 19, 2015 as directed Claritin [facility] [address]-36 10 MG Orally Once a day Jun 19, 2015 1 tablet Propranolol HCl [facility] [address]-46 10 MG Orally Twice a day 1 tablet Latuda [facility] [address]-86 20 MG Orally Once a day 2 tablets with food Fioricet [facility] [address]-49 50-300-40 MG Orally every 4 hrs 1 capsule as needed [place] I Carbonate [facility] [address]-61 300 MG Orally 4 times a day 1 capsule Procedures Procedure Coding System Code Date Office Visit, Est Pt., Level 3 CPT-4 16866 Jun 19, 2015 Vital Signs Date/Time: Jun 19, 2015 Temperature 98.2 F Weight 132.8 lbs Height 66 in Pain Scale 6 1-10 Blood Pressure Diastolic 60 mmHg Blood Pressure Systolic 92 mmHg Cardiac Monitoring Heart Rate 100 bpm BMI 21.43 Index Results No Known Results Summary Purpose [employer] Submission
== END 2016-11-28 18:02 | disposition home or self-care (01) ==
LOC: EDUNIT# 17:07 → ER 17:08
DX: S61.412A Laceration without foreign body of left hand, initial encounter (principal); I10 Essential (primary) hypertension; F17.210 Nicotine dependence, cigarettes, uncomplicated; Z79.899 Other long term (current) drug therapy; W45.8XXA Other foreign body or object entering through skin, initial encounter; Y92.009 Unspecified place in unspecified non-institutional (private) residence as the place of occurrence of the external cause; Y99.8 Other external cause status
CPT/HCPCS: 12002

== ENCOUNTER 2017-01-31 18:14 | Emergency (ER) | payer SELFPAY ==
[~2017-01-31] VITALS: Ht 170.2 cm; Wt 68.0 kg
[2017-01-31 18:53] LABS: BILIRUBIN,URINE NEGATIVE (NEGATIVE); KETONES,URINE NEGATIVE (NEGATIVE); LEUKOCYTE ESTERASE ,URINE 3+ (NEGATIVE); NITRITE,URINE NEGATIVE (NEGATIVE); PH,URINE 6.5 (5-9); PROTEIN,URINE 2+ (NEGATIVE); UROBILINOGEN,URINE 1 MG/DL (NORMAL)
[2017-01-31 19:03] LABS: WBC,URINE TNTC /HPF
[2017-01-31] MEDS ORDERED: PHEN-639 PO (19:33)
[2017-01-31] MEDS ORDERED: CIPR-225 PO (19:33)
--- NOTE | 2017-01-31 19:33 | ED GU-Female ---
General Chief Complaint: -Female Stated Complaint: BURNING DURING URINATION/CLOUDY URINE Nursing Triage Note: PT CO OF PAIN,BURNING AND ITCHING, FOR A COUPLE DAYS Nursing Sepsis Screen: No Definite Risk History of Present Illness Time seen by provider: 19:15 Initial Comments Patient reports 2 day history of dysuria and frequency.She reports on the first day she noted some hematuria but that has resolved. She does have a history of herpes type II, is not on suppression therapy and has not had an outbreak in many years. Allergies and Home Medications Allergies Coded Allergies: Penicillins (Verified Allergy, Unknown, RASH, 11/27/13) Sulfa (Sulfonamide Antibiotics) (Unverified Allergy, Unknown, 12/10/13) iodine (Verified Allergy, Unknown, rash, itching, 03/09/15) latex (Verified Allergy, Unknown, RASH, 11/27/13) Home Medications Ciprofloxacin HCl 500 Mg Tablet, 500 MG PO BID, #14 Ref 0 Prescribed by: BALAJI JEREZ on 01/31/171932 Clonazepam 0.5 Mg Tablet, 0.5 MG PO TID, (Reported) Phenazopyridine HCl 100 Mg Tablet, 100 MG PO Q8H PRN for PAIN-MILD, #6 Ref 0 Prescribed by: BALAJI JEREZ on 01/31/171932 Temazepam 30 Mg Capsule, 30 MG PO HS PRN for SLEEP, (Reported) Constitutional: no symptoms reported, chills EENTM: no symptoms reported, see HPI Respiratory: no symptoms reported, see HPI Cardiovascular: no symptoms reported, see HPI Gastrointestinal: no symptoms reported, see HPI Genitourinary: see HPI, burning, dysuria, frequency : Yes (the hysterectomy) Musculoskeletal: no symptoms reported, see HPI Skin: no symptoms reported, see HPI Psychiatric/Neurological: No Symptoms Reported, See HPI Endocrine: No Symptoms Reported, See HPI Hematologic/Lymphatic: No Symptoms Reported, See HPI All Other Systemes Reviewed Negative Unless Noted: Yes Past Rzsjbyj-Zyleqw-Iwcsxc Hx Patient Social History Alcohol Use: Rarely Uses Recreational Drug Use: No Type Used: Cigarettes Recent Foreign Travel: No Contact w/Someone Who Travel: No Recent Infectious Disease Expo: No Recent Hopitalizations: No Immunizations Up To Date Tetanus Booster (TDap): Unknown Seasonal Allergies Seasonal Allergies: No Surgeries HX Surgeries: Yes (LIPOMA REMOVED FROM BACK) Surgeries: Hysterectomy, Tubal Ligation Respiratory Hx Respiratory Disorders: No Cardiovascular Hx Cardiac Disorders: No Cardiac Disorders: Hypertension Neurological Hx Neurological Disorders: Yes Neurological Disorders: Headaches /Migraines Reproductive System Hx Reproductive Disorders: Yes Sexually Transmitted Disease: Yes (HERPES, HX TRICHOMONAS) 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 CERVICAL CANCER--SELF REPORTED BY PT) Cancer: Cervical Psychosocial Hx Psychiatric Problems: Yes (PBA) Behavioral Health Disorders: ADD/ADHD, Anxiety, Bipolar, Depression Integumentary HX Skin/Integumentary Disorder: No Blood Transfusions Hx Blood Disorders: No Reviewed Nursing Assessment Reviewed/Agree w Nursing PMH: Yes Family Medical History Family Medial History: FH: cancer grandparents Psychosocial problem 19 MOTHER grandparents Physical Exam Vital Signs Vital Sign - Last 12Hours 01/31/17 18:40 Temp 97.5 Pulse 98 Resp 18 B/P (MAP) 123/91 Pulse Ox 100 Capillary Refill : Less Than 3 Seconds General Appearance: WD/WN, no apparent distress HEENT: PERRL/EOMI, normal ENT inspection, TMs normal, pharynx normal Neck: non-tender, full range of motion, normal inspection Cardiovascular: normal peripheral pulses, regular rate, rhythm, no murmur Respiratory: chest non-tender, lungs clear, normal breath sounds, no respiratory distress Gastrointestinal: normal bowel sounds, non tender, soft, no organomegaly, no pulsatile mass, No distended, No guarding, No rebound, No tenderness Back: normal inspection, no CVA tenderness, no vertebral tenderness Neurologic/Psychiatric: no motor/sensory deficits, alert, normal mood/affect, oriented x 3 Skin: normal color, warm/dry Lymphatic: no adenopathy Progress/Results/Core Measures Results/Orders Lab Results Laboratory Tests Test 01/31/17 18:40 Range/Units Urine Color YELLOW Urine Clarity SLIGHTLY CLOUDY Urine pH 6.5 5-9 Urine Specific [place] 1.015 L 1.016-1.022 Urine Protein 2+ H NEGATIVE Urine Glucose (UA) NEGATIVE NEGATIVE Urine Ketones NEGATIVE NEGATIVE Urine Nitrite NEGATIVE NEGATIVE Urine Bilirubin NEGATIVE NEGATIVE Urine Urobilinogen 1 NORMAL MG/DL Urine Leukocyte Esterase 3+ H NEGATIVE Urine RBC (Auto) 5+ H NEGATIVE Urine RBC 2-5 H /HPF Urine WBC TNTC H /HPF Urine Crystals NONE /LPF Urine Bacteria MODERATE H /HPF Urine Casts NONE /LPF Urine Mucus NEGATIVE /LPF Urine Culture Indicated YES My Orders Orders - BALAJI JEREZ Ua Culture If Indicated (01/31/17 18:21) Urine Culture (01/31/17 18:40) Vital Signs/I&O Vital Sign - Last 12Hours 01/31/17 01/31/17 18:40 19:45 Temp 97.5 97.5 Pulse 98 95 Resp 18 18 B/P (MAP) 123/91 Pulse Ox 100 98 Blood Pressure Mean: 102 Departure Impression Impression: Primary Impression: Urinary tract infection Qualified Codes: N30.01 - Acute cystitis with hematuria Disposition: HOME, SELF-CARE Condition: Stable Departure-Patient Inst. Decision time for Depature: 19:25 Referrals: [facility] (PCP/Family) Primary Care Physician Patient Instructions: Urinary Tract Infection, Adult (DC) Add. Discharge Instructions: Continue to increase cranberry juice. Empty bladder frequently. Return to emergency department for any back pain, fevers, fatigue, or new complaints. All discharge instructions reviewed with patient and/or family. Voiced understanding. Scripts Phenazopyridine HCl (Pyridium) 100 Mg Tablet 100 MG PO Q8H Y for PAIN-MILD, #6 TAB 0 Refills Prov: BALAJI JEREZ 01/31/17 Ciprofloxacin HCl (Cipro) 500 Mg Tablet 500 MG PO BID, #14 TAB 0 Refills Prov: BALAJI JEREZ 01/31/17 BALAJI JEREZ Jan 31, 2017 19:33
[2017-01-31 19:45] VITALS: BP 114/80
== END 2017-01-31 19:45 | disposition home or self-care (01) ==
LOC: EDUNIT# 18:14 → ER 18:16
DX: N39.0 Urinary tract infection, site not specified (principal); Z85.41 Personal history of malignant neoplasm of cervix uteri; Z90.710 Acquired absence of both cervix and uterus
CPT/HCPCS: 81000; 87088; 87186; 99282

== ENCOUNTER 2017-09-26 09:10 | Emergency (ER) | payer SELFPAY ==
[~2017-09-26] VITALS: Ht 170.2 cm; Wt 68.0 kg
[~2017-09-26 09:10] MED LIST changes: +CIPR-225 PO; +NAPR-1071 PO; -NAPR500T PO; -NCT21TD TD; +NICO-588 TD; +PHEN-639 PO
--- OUTSIDE RECORDS SUMMARY | 2017-09-26 09:17 | XMS REPORT ---
Author Author GABRIELA Putnam [facility] Address Unknown Care Team Providers Care Safety Net Maker Name Role Phone GABRIELA Putnam Unavailable PROBLEMS Type Condition ICD9-CM Code [id number] Code Onset Dates Condition Status SNOMED Code Problem Migraine without aura and without status migrainosus, not intractable G43.009 Active 338651584 Problem Migraine with aura and without status migrainosus, not intractable G43.109 Active 8471679 Problem Migraine headache G43.909 Active 65183754 Problem Bipolar affective disorder F31.9 Active 85663747 Problem H/O galactorrhea Z87.59 Active 099335361 Problem Dyspareunia N94.1 Active 83687283 ALLERGIES Substance Reaction Event Type Date Status Latex Unknown Drug Allergy Aug, Active SulfADIAZINE Unknown Drug Allergy Aug, Active Iodine Unknown Drug Allergy Aug, Active SOCIAL HISTORY No smoking Hx information available PLAN OF CARE Activity Details Follow Up 1 Week Reason:TE #10 AND 6 VITAL SIGNS Height 66 in 2016-09-19 Blood pressure systolic 103 mmHg 2016-09-19 Blood pressure diastolic 48 mmHg 2016-09-19 MEDICATIONS Medication Instructions Dosage Frequency Start Date End Date Duration Status Quetiapine Fumarate Active Amoxicillin 500 MG Orally every 6 hrs 1 tablet 6h Aug, Aug, 7 days Active Klonopin 0.5 MG Orally 3 times a day 1 tablet 8h Active Wellbutrin 100 MG Orally Twice a day 1 tablet 12h Active Lamotrigine Active RESULTS No Results PROCEDURES Procedure Date Ordered Related Diagnosis Body Site LTD ORAL EVALUATION - PROBLEM FOCUS Sep 19, 2016 INTRAORL-PERIAPICAL 1 FILM 18987 Sep 19, 2016 INTRAORL-PERIAPICAL 1 FILM 47553 Sep 19, 2016 IMMUNIZATIONS No Known Immunizations
--- OUTSIDE RECORDS SUMMARY | 2017-09-26 09:18 | XMS REPORT ---
Author Author GABRIELA Putnam Organization [facility] Address Unknown Care Team Providers Care Float Nurse Name Role Phone GABRIELA Putnam Unavailable PROBLEMS Type Condition ICD9-CM Code [id number] Code Onset Dates Condition Status SNOMED Code Problem Migraine without aura and without status migrainosus, not intractable G43.009 Active 825291817 Problem Migraine with aura and without status migrainosus, not intractable G43.109 Active 0023838 Problem Migraine headache G43.909 Active 15629295 Problem Bipolar affective disorder F31.9 Active 40282356 Problem H/O galactorrhea Z87.59 Active 909588664 Problem Dyspareunia N94.1 Active 43847577 ALLERGIES Substance Reaction Event Type Date Status Latex Unknown Drug Allergy Sep, Active SulfADIAZINE Unknown Drug Allergy Sep, Active Iodine Unknown Drug Allergy Sep, Active SOCIAL HISTORY Never Assessed PLAN OF CARE Activity Details Follow Up prn Reason:jeffrey/hygiene VITAL SIGNS Height 66 in 2016-10-03 Blood pressure systolic 136 mmHg 2016-10-03 Blood pressure diastolic 96 mmHg 2016-10-03 MEDICATIONS Medication Instructions Dosage Frequency Start Date End Date Duration Status Klonopin 0.5 MG Orally 3 times a day 1 tablet 8h Active Lamotrigine Active Wellbutrin 100 MG Orally Twice a day 1 tablet 12h Active Quetiapine Fumarate Active RESULTS No Results PROCEDURES Procedure Date Ordered Result Body Site EXTRAC ERUPTED TOOTH/EXPOSED ROOT Oct 03, 2016 EXTRAC ERUPTED TOOTH/EXPOSED ROOT Oct 03, 2016 IMMUNIZATIONS No Known Immunizations MEDICAL (GENERAL) HISTORY Type Description Date Medical History bipolar disorder Medical History PTSD Medical History ICD Medical History ADHD Medical History Cervical Cancer Surgical History tubal ligation 2009 Surgical History lipoma removal from back Surgical History hysterectomy, laparoscopically assisted partial 03/07/2016 Hospitalization History Surgery(s)/Childbirth(s) only
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
[2017-09-26] MEDS ORDERED: AZIT250T12 PO (10:13)
[2017-09-26] MEDS ORDERED: BENZ-13 PO (10:14)
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
[2017-09-26 10:38] VITALS: BP 110/80
== END 2017-09-26 10:38 | disposition home or self-care (01) ==
LOC: EDUNIT# 09:10 → ER 09:12
DX: J40 Bronchitis, not specified as acute or chronic (principal); I10 Essential (primary) hypertension; G43.909 Migraine, unspecified, not intractable, without status migrainosus; F90.9 Attention-deficit hyperactivity disorder, unspecified type; F41.9 Anxiety disorder, unspecified; F31.9 Bipolar disorder, unspecified; F17.210 Nicotine dependence, cigarettes, uncomplicated; Z85.41 Personal history of malignant neoplasm of cervix uteri; Z88.0 Allergy status to penicillin; Z88.2 Allergy status to sulfonamides; Z88.8 Allergy status to other drugs, medicaments and biological substances; Z90.710 Acquired absence of both cervix and uterus; Z98.51 Tubal ligation status
CPT/HCPCS: 71046; 99283

== ENCOUNTER 2018-01-31 21:55 | Emergency (ER) | payer SELFPAY ==
[~2018-01-31] VITALS: Ht 170.2 cm; Wt 68.0 kg
[~2018-01-31 21:55] MED LIST changes: +AZIT250T12 PO; +BENZ-13 PO
--- OUTSIDE RECORDS SUMMARY | 2018-01-31 22:00 | XMS REPORT ---
Author Author NAREN PANCHAL [facility] Address [address] [place] [address] Care Team Providers Care Safe And Vault Installer Name Role Phone NAREN PANCHAL Unavailable PROBLEMS Type Condition ICD9-CM Code KEE19-ZF Code Onset Dates Condition Status SNOMED Code Problem Migraine headache G43.909 Active 29559668 Problem H/O galactorrhea Z87.59 Active 227621677 Problem Dyspareunia N94.1 Active 99628105 Problem Bipolar affective disorder F31.9 Active 00979799 Problem Intractable migraine with aura without status migrainosus G43.119 Active 717855321 Problem Acute stress disorder F43.0 Active 53221471 Problem Migraine without aura and without status migrainosus, not intractable G43.009 Active 540091886 Problem Migraine with aura and without status migrainosus, not intractable G43.109 Active 7695301 Problem Bipolar disorder, current episode mixed, mild F31.61 Active 486513572 Problem PTSD (post-traumatic stress disorder) F43.10 Active 44715797 ALLERGIES Substance Reaction Event Type Date Status Latex Unknown Drug Allergy Mar, Active SulfADIAZINE Unknown Drug Allergy Mar, Active Iodine Unknown Drug Allergy Mar, Active ENCOUNTERS Encounter Location Date Diagnosis [place] [id number] [address] Nov, [place] [id number] [address] Sep, Intractable migraine with aura without status migrainosus G43.119 [facility] [id number] [address] Aug, [facility] [id number] [address] Aug, Bipolar disorder, current episode mixed, mild F31.61 ; PTSD (post-traumatic stress disorder) F43.10 and Acute stress disorder F43.0 [facility] [address] [address] Aug, [facility] [address] [address] Aug, [facility] [address] [address] Aug, PTSD (post-traumatic stress disorder) F43.10 and Bipolar disorder, current episode mixed, mild F31.61 [facility] [address] [place] [address] Jun, PTSD (post-traumatic stress disorder) F43.10 ; Bipolar disorder, current episode mixed, mild F31.61 and High risk medication use Z79.899 [address] [id number] [place] [address] Apr, Migraine without aura and without status migrainosus, not intractable G43.009 and Gum abscess K05.219 [facility] [address] [address] Apr, [facility] [address] [facility] [address] [id number] [place] [id number] Mar, [facility] examination Z01.20 [facility] [address] [id number] [place] [id number] Oct, Dental examination Z01.20 [facility] [address] [id number] Oct, Dental examination Z01.20 [facility] [address] [address] Sep, Dental caries K02.9 [facility] [id number] [place] [address] [id number] Aug, Dental examination Z01.20 [facility] [address] [address] Jun, Migraine with aura and without status migrainosus, not intractable G43.109 [facility] [id number] [place] [id number] Jan, Dental caries K02.9 [facility] [id number] [place] [id number] December, Dental examination Z01.20 [facility] [id number] [place] [id number] Oct, Dental examination Z01.20 and Caries K02.9 [facility] [id number] [place] [address] 2546 Oct, [facility] [id number] [place] [address] [id number] Sep, Dental caries K02.9 [facility] [id number] [place] [address]- 0096 Sep, [facility] [id number] [place] [address] 488125- 0706 Sep, [facility] [id number] [place] [address] 308841- 5636 Sep, Well woman exam Z01.419 ; Encounter for screening for malignant neoplasm of cervix Z12.4 ; Tobacco use Z72.0 ; History of herpes genitalis Z86.19 ; Body mass index (BMI) of 20.0-20.9 in adult Z68.20 ; Family history of diabetes mellitus Z83.3 ; History of dyspareunia in female Z87.42 ; Depression, unspecified depression type F32.9 ; History of asthma Z87.09 ; Vaginal discharge N89.8 ; Routine screening for STI (sexually transmitted infection) Z11.3 ; Cervical motion tenderness N94.9 ; Uterine tenderness N94.9 ; Adnexal tenderness R10.2 ; Trichomonas vaginalis (TV) infection A59.01 and History of migraine Z86.69 [facility] [id number] [place] [id number]- [address]58 Sep, Bronchitis J40 [facility] [address] [place] [address] [id number] 04 Sep, 2015 Dental examination Z01.20 [facility] [address] [place] [address] Aug, Migraine G43.909 [facility] [id number] [place] [address] 16[address]- 0030 Jul, Trichomonas infection A59.9 [facility] [id number] [place] [address] Jul, Herpes simplex B00.9 ; Vaginal burning N94.9 and Vaginal discharge N89.8 [facility] [id number] [place] [address] Jul, Migraine without aura and without status migrainosus, not intractable G43.009 [facility] [address] [place] [address]- 3887 Jun, Bipolar affective disorder F31.9 [facility] [address] [address] Jun, Intractable migraine without aura and with status migrainosus G43.011 [facility] [id number] [place] [address]- 7[address] May, Migraine headache G43.909 [facility] [id number] [place] [address]- 7[address] Apr, Candidal vaginitis 112.1 and Vaginitis 616.10 [facility] [id number] [place] [address]08[address] 9[address] Nov, [facility] [address] [address] Nov, [facility] [address] [address] Jun, [facility] [address] [facility] [id number] [address] Jun, [facility] [address] [facility] [id number] [address] Mar, [facility] [address] [facility] [id number] [address] Mar, [facility] [address] [facility] [id number] [address] Feb, [facility] [address] [facility] [id number] [address] Feb, [facility] [address] [facility] [id number] [address] Feb, [facility] [address] [facility] [id number] [place] [address] 8[address] Feb, [facility] [address] [address] 4[address] Feb, [facility] [address] [address] Feb, [facility] [address] [address] 9[address] Feb, [facility] [id number] [address] 6[address] Feb, [facility] [id number] [address] 7[address] Feb, [facility] [id number] [address] 8[address] Feb, IMMUNIZATIONS No Known Immunizations SOCIAL HISTORY Never Assessed REASON FOR VISIT Extraction PLAN OF CARE Activity Details Follow Up Jason Reason: VITAL SIGNS Height 66 in 2017-04-17 Blood pressure systolic 114 mmHg 2017-04-17 Blood pressure diastolic 72 mmHg 2017-04-17 MEDICATIONS Medication Instructions Dosage Frequency Start Date End Date Duration Status Quetiapine Fumarate Active Klonopin 0.5 MG Orally 3 times a day 1 tablet 8h Active Magic Mouthwash Apply medicated swab to sore areas of the mouth to numb the pain As needed Dip cotton swab into medication Mar, As needed Active Wellbutrin 100 MG Orally Twice a day 1 tablet 12h Active Lamotrigine Active BuSpar Active [place] 5-325 MG Orally every 4- 6 hrs 1-2 tablets Active RESULTS No Results PROCEDURES Procedure Date Ordered Result Body Site LTD ORAL EVALUATION - PROBLEM FOCUS November 17, 2016 PANORAMIC FILM SEE ALSO CODE 85855 November 17, 2016 EXTRAC ERUPTED TOOTH/EXPOSED ROOT Apr 17, 2017 EXTRAC ERUPTED TOOTH/EXPOSED ROOT Apr 17, 2017 EXTRAC ERUPTED TOOTH/EXPOSED ROOT Apr 17, 2017 EXTRAC ERUPTED TOOTH/EXPOSED ROOT Apr 17, 2017 EXTRAC ERUPTED TOOTH/EXPOSED ROOT Apr 17, 2017 INSTRUCTIONS MEDICATIONS ADMINISTERED No Known Medications MEDICAL (GENERAL) HISTORY Type Description Date Medical History bipolar disorder Medical History PTSD Medical History ICD Medical History ADHD Medical History Cervical Cancer Surgical History tubal ligation 2009 Surgical History lipoma removal from back Surgical History hysterectomy, laparoscopically assisted partial 03/07/2016 Hospitalization History Surgery(s)/Childbirth(s) only Hospitalization History inpatient 96 hour hold for SI at [facility] unit 2013?
--- OUTSIDE RECORDS SUMMARY | 2018-01-31 22:01 | XMS REPORT ---
Author Author DEVANG XIONG Organization [facility] Address [address] [place] [address] Care Team Providers Care Triage Technician Name Role Phone DEVANG XIONG Unavailable PROBLEMS Type Condition ICD9-CM Code GEL00-UE Code Onset Dates Condition Status SNOMED Code Problem Migraine headache G43.909 Active 25401040 Problem H/O galactorrhea Z87.59 Active 835650244 Problem Dyspareunia N94.1 Active 19680795 Problem Bipolar affective disorder F31.9 Active 96464507 Problem Intractable migraine with aura without status migrainosus G43.119 Active 253430765 Problem Acute stress disorder F43.0 Active 32979560 Problem Migraine without aura and without status migrainosus, not intractable G43.009 Active 423158395 Problem Migraine with aura and without status migrainosus, not intractable G43.109 Active 5047802 Problem Bipolar disorder, current episode mixed, mild F31.61 Active 511970120 Problem PTSD (post-traumatic stress disorder) F43.10 Active 36713861 ALLERGIES Substance Reaction Event Type Date Status Latex itching Drug Allergy Apr, Active SulfADIAZINE shortness of breath Drug Allergy Apr, Active Iodine itching Drug Allergy Apr, Active ENCOUNTERS Encounter Location Date Diagnosis [place] [id number] [address] Sep, Intractable migraine with aura without status migrainosus G43.119 [facility] [address] [address] Aug, [place] [address] [place] [address] Aug, Bipolar disorder, current episode mixed, mild F31.61 ; PTSD (post-traumatic stress disorder) F43.10 and Acute stress disorder F43.0 [place] [address] [address] Aug, [facility] [address] [place] [address]- 7297 Aug, [facility] [address] [address]- 7269 Aug, PTSD (post-traumatic stress disorder) F43.10 and Bipolar disorder, current episode mixed, mild F31.61 [place] [address] [place] [address]14- 5513 Jun, PTSD (post-traumatic stress disorder) F43.10 ; Bipolar disorder, current episode mixed, mild F31.61 and High risk medication use Z79.899 [place] [address] [address] Apr, Migraine without aura and without status migrainosus, not intractable G43.009 and Gum abscess K05.219 [place] [address] [address] Apr, [facility] [place] [address] [id number] [place] [id number] Mar, Dental examination Z01.20 [facility] [address] [id number] [place] [id number] Oct, Dental examination Z01.20 [facility] [address] [address] Oct, Dental examination Z01.20 [facility] [address] [address] Sep, Dental caries K02.9 [facility] [id number] [place] [id number] Aug, Dental examination Z01.20 [place] [address] [address]- [address] Jun, Migraine with aura and without status migrainosus, not intractable G43.109 [facility] [address] [place] [address] [id number] Jan, Dental caries K02.9 [facility] [address] [id number] December, Dental examination Z01.20 [facility] [id number] [place] [address] [id number] Oct, Dental examination Z01.20 and Caries K02.9 [facility] [address] [id number]- [address] Oct, [facility] [address] [id number] Sep, Dental caries K02.9 [facility] [address] [address]- [address] Sep, [facility] [address] [address]- 2359 Sep, [facility] [id number] [place] [address] 10235- 1872 Sep, Well woman exam Z01.419 ; Encounter [...] infection A59.01 and History of migraine Z86.69 [facility] [id number] [place] [address] 16138- 7668 16 Sep, 2015 Bronchitis J40 [facility] [id number] [place] [address] [id number] Sep, Dental examination Z01.20 [facility] [address] [address] Aug, Migraine G43.909 [facility] [id number] [place] [address] 60308- 1616 Jul, Trichomonas infection A59.9 [facility] [id number] [place] [address] 18006- 9248 Jul, Herpes simplex B00.9 ; Vaginal burning N94.9 and Vaginal discharge N89.8 [place] [id number] [place] [address]46- [address]39 Jul, Migraine without aura and without status migrainosus, not intractable G43.009 [facility] [id number] [place] [address] 77240- 1568 Jun, Bipolar affective disorder F31.9 [facility] [id number] [place] [address]- 4576 Jun, Intractable migraine without aura and with status migrainosus G43.011 [place] [id number] [place] [address] 81662- 1792 May, Migraine headache G43.909 [facility] [id number] [place] [address]57- 9938 Apr, Candidal vaginitis 112.1 and Vaginitis 616.10 [facility] [id number] [place] [address] 61173- 7117 Nov, [place] [id number] [place] [address] 31536- 4617 Nov, [facility] [id number] [place] [address] 77634- 4121 Jun, [facility] [id number] [place] [address] 34188- 7992 Jun, [facility] [address] [id number] [address]- 9[address] Mar, [facility] [address] [id number], [place] [address]- [address] Mar, [facility] [address] [id number] [address]- 1688 Feb, [facility] [address] [id number] [address]- 67[address] Feb, [facility] [address] [id number] [address]- 7[address] Feb, [facility] [address] [facility] [id number] [address]- 1699 Feb, [facility] [address] [facility] [facility] [id number] [address]- 69[address] Feb, [facility] [address] [facility] [id number] [address]- 1036 Feb, [facility] [address] [facility] [id number] [address]- 29[address] Feb, [facility] [address] [facility] [id number], [place] [address]- 5948 Feb, [facility] [address] [facility] [id number] [address]- 7944 Feb, [facility] [address] [facility] [id number] [address] Feb, IMMUNIZATIONS No Known Immunizations SOCIAL HISTORY Never Assessed REASON FOR VISIT PMH obtained. TGrosdidexter RN PLAN OF CARE VITAL SIGNS MEDICATIONS Medication Instructions Dosage Frequency Start Date End Date Duration Status Lamotrigine 200 MG Orally Once a day 1 tablet 24h Active Vistaril 50 mg Orally 1 at HS 1 capsule Active Quetiapine Fumarate 100 mg Orally at HS 1 tablet Active Minipress 2 MG Orally at HS 2 capsules Active Quetiapine Fumarate 25 MG Orally 4 times a day 1 tablet 6h Active BuSpar 15 MG Orally 3 times a day 1 tablet 8h Active RESULTS No Results PROCEDURES No Known procedures INSTRUCTIONS MEDICATIONS ADMINISTERED No Known Medications MEDICAL (GENERAL) HISTORY Type Description Date Medical History bipolar disorder Medical History PTSD Medical History ICD Medical History ADHD Medical History Cervical Cancer Surgical History tubal ligation 2009 Surgical History lipoma removal from back Surgical History hysterectomy, laparoscopically assisted partial 03/07/2016 Hospitalization History Surgery(s)/Childbirth(s) only Hospitalization History inpatient 96 hour hold for SI at [facility] unit 2013?
--- OUTSIDE RECORDS SUMMARY | 2018-01-31 22:03 | XMS REPORT ---
Author Author DEBORAJUDYA Organization [facility] Address [address] [place] [address] Care Team Providers Care Nursery Nurse Name Role Phone ROSITAJUDY AKERSA Unavailable PROBLEMS Type Condition ICD9-CM Code PZS25-UB Code Onset Dates Condition Status SNOMED Code Problem Migraine headache G43.909 Active 06053255 Problem H/O galactorrhea Z87.59 Active 340019562 Problem Dyspareunia N94.1 Active 70038302 Problem Bipolar affective disorder F31.9 Active 30036620 Problem Intractable migraine with aura without status migrainosus G43.119 Active 624425062 Problem Acute stress disorder F43.0 Active 91935067 Problem Migraine without aura and without status migrainosus, not intractable G43.009 Active 470038391 Problem Migraine with aura and without status migrainosus, not intractable G43.109 Active 3628220 Problem Bipolar disorder, current episode mixed, mild F31.61 Active 719353379 Problem PTSD (post-traumatic stress disorder) F43.10 Active 37699184 ALLERGIES Substance Reaction Event Type Date Status Latex itching Drug Allergy Jun, Active SulfADIAZINE shortness of breath Drug Allergy Jun, Active Iodine itching Drug Allergy Jun, Active ENCOUNTERS Encounter Location Date Diagnosis [facility] [address] [facility] [id number] [address] Jan, [facility] [address] [facility] [id number], [place] [address] Jan, [facility] [address] [id number], [place] [address] Sep, Intractable migraine with aura without status migrainosus G43.119 [facility] [address] [id number], [place] [address] Aug, [facility] [address] [id number], [place] [address] Aug, Bipolar disorder, current episode mixed, mild F31.61 ; PTSD (post-traumatic stress disorder) F43.10 and Acute stress disorder F43.0 [place] [address]00565100[place], [place] [address] Aug, [place] [id number] [place] [address] Aug, [place] [address] [place] [address] 16460- 3754 Aug, PTSD (post-traumatic stress disorder) F43.10 and Bipolar disorder, current episode mixed, mild F31.61 [place] [address]65[address], [place] [address] Jun, PTSD (post-traumatic stress disorder) F43.10 ; Bipolar disorder, current episode mixed, mild F31.61 and High risk medication use Z79.899 [place] [address]65100[place], [place] [address] 08 Apr, 2017 Migraine without aura and without status migrainosus, not intractable G43.009 and Gum abscess K05.219 [place] [address]65[address], [place] [address] 05 Apr, [address] [facility] [place] [address] [id number] [place] [id number] Mar, Dental examination Z01.[address] [facility] [place] [address] [id number] [place] [id number] Oct, Dental examination Z01.20 [facility] [address] [id number] [id number] Oct, Dental examination Z01.20 [facility] [address] [id number] [id number] Sep, Dental caries K02.9 [facility] [id number] [place] [phone] Aug, Dental examination Z01.20 [facility] [address] [place] [address] 34913- 4836 Jun, Migraine with aura and without status migrainosus, not intractable G43.109 [facility] [address] [id number] Jan, Dental caries K02.9 [facility] [id number] [place] [address] [id number] December, Dental examination Z01.20 [facility] [id number] [place] [address] [id number] Oct, Dental examination Z01.20 and Caries K02.9 [facility] [address] [place] [address]29 2546 Oct, [facility] [id number] [place] [address] [id number] Sep, Dental caries K02.9 [facility] [address] [place] [address] [id number]- 9886 Sep, [facility] [id number] [place] [address] 33632- 6176 Sep, [facility] [address] [place] [address] [id number]- 8716 Sep, Well woman exam Z01.419 ; Encounter [...] infection A59.01 and History of migraine Z86.69 [facility] [address] [place] [address] 13927- 8808 16 Sep, 2015 Bronchitis J40 [facility] [address] [place] [address] [id number] 04 Sep, 2015 Dental examination Z01.[address] [facility] [id number] [place] [address]2866 -[address]78 09 Aug, 2015 Migraine G43.909 [facility] [address] [address] Jul, Trichomonas infection A59.9 [facility] [address] [address] Jul, Herpes simplex B00.9 ; Vaginal burning N94.9 and Vaginal discharge N89.8 [facility] [address] [address] 09 Jul, 2015 Migraine without aura and without status migrainosus, not intractable G43.009 [facility] [id number] [place] [address]- [address]85 10 Jun, 2015 Bipolar affective disorder F31.9 [facility] [id number] [place] [address]- 65[address] 02 Jun, 2015 Intractable migraine without aura and with status migrainosus G43.011 [place] [id number] [place] [address]- 8986 May, Migraine headache G43.909 [facility] [id number] [place] [address]- 9[address] Apr, Candidal vaginitis 112.1 and Vaginitis 616.10 [facility] [id number] [place] [address] 71832- 5297 14 Nov, 2014 [facility] [address] [address] Nov, [facility] [address] [facility] [id number], [place] [address] Jun, [facility] [address] [facility] [id number], [place] [address] Jun, [facility] [address] [facility] [id number], [place] [address] Mar, [facility] [address] [id number], [place] [address] Mar, [facility] [address] [facility] [id number] [place] [address] Feb, [facility] [address] [facility] [id number], [place] [address] Feb, [facility] [address] [facility] [id number] [place] [address] 87[address] Feb, [facility] [address] [facility] [id number], [place] [address] Feb, [facility] [address] [facility] [id number], [place] [address] Feb, [facility] [address] [facility] [id number], [place] [address] Feb, [facility] [address] [facility] [id number], [place] [address] 9[address] Feb, [facility] [address] [facility] [id number], [place] [address] Feb, [facility] [address] [facility] [id number], [place] [address] Feb, [facility] [address] [facility] [id number], [place] [address] Feb, IMMUNIZATIONS No Known Immunizations SOCIAL HISTORY Never Assessed REASON FOR VISIT Psych Intake--Zackary Summers MA PLAN OF CARE Activity Details Follow Up 4 Weeks Reason: VITAL SIGNS Height 66 in 2017-07-26 Weight 132.1 lbs 2017-07-26 Heart Rate 100 bpm 2017-07-26 Respiratory Rate 20 2017-07-26 BMI 21.32 kg/m2 2017-07-26 Blood pressure systolic 118 mmHg 2017-07-26 Blood pressure diastolic 72 mmHg 2017-07-26 MEDICATIONS Medication Instructions Dosage Frequency Start Date End Date Duration Status Lamotrigine 25 MG Orally at night 1 tablet every night for 2 weeks, then take 2 tablets every night for two weeks 30 days Active Minipress 2 MG Orally at HS 2 capsules Not-Taking Seroquel 25 MG Orally four times a day 1 tablet 6h Jun, 30 day( s) Active Prazosin HCl 1 MG Orally bedtime 1 capsule at bedtime for five nights, then take 2 caps for five nights, then take 3 every night Jun, 30 day (s) Active Quetiapine Fumarate 100 mg Orally at HS 1 tablet Not-Taking BuSpar 15 MG Orally 3 times a day 1 tablet 8h Not-Taking Quetiapine Fumarate 25 MG Orally 4 times a day 1 tablet 6h Not- Taking HydrOXYzine HCl 25 MG Orally three times a day as needed for anxiety 1-2 tablets Jun, 30 day(s) Active Vistaril 50 mg Orally 1 at HS 1 capsule Not-Taking Seroquel 100 MG Orally every bedtime 1 tablet Jun, 30 day(s) Active Jnmdzwnhzj-QQOU-Tazgqgvi 50-325-40 MG Orally every 4 hrs 1 capsule as needed 4h Jun, Active Imitrex 100 MG Orally Once a day 1 tablet as needed 24h Jun, Active RESULTS No Results PROCEDURES No Known [...] Hospitalization History inpatient 96 hour hold for at [facility] [place]?
--- OUTSIDE RECORDS SUMMARY | 2018-01-31 22:04 | XMS REPORT ---
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 Name Role Phone DEVANG XIONG Unavailable PROBLEMS Type Condition ICD9-CM Code ROI29-LN Code Onset Dates Condition Status SNOMED Code Problem Migraine headache G43.909 Active 57516284 Problem H/O galactorrhea Z87.59 Active 685238639 Problem Dyspareunia N94.1 Active 38861290 Problem Bipolar affective disorder F31.9 Active 61534151 Problem Intractable migraine with aura without status migrainosus G43.119 Active 011629752 Problem Acute stress disorder F43.0 Active 92370339 Problem Migraine without aura and without status migrainosus, not intractable G43.009 Active 965038622 Problem Migraine with aura and without status migrainosus, not intractable G43.109 Active 7315720 Problem Bipolar disorder, current episode mixed, mild F31.61 Active 417198203 Problem PTSD (post-traumatic stress disorder) F43.10 Active 31824004 ALLERGIES Substance Reaction Event Type Date Status Latex itching Drug Allergy Apr, Active SulfADIAZINE shortness of breath Drug Allergy Apr, Active Iodine itching Drug Allergy Apr, Active ENCOUNTERS Encounter Location Date Diagnosis [facility] [address] [id number] [address] December, [facility] [address] [facility] [id number] [address] Sep, Intractable migraine with aura without status migrainosus G43.119 [facility] [address] [facility] [id number] [address] Aug, [facility] [address] [facility] [id number] [address] Aug, Bipolar disorder, current episode mixed, mild F31.61 ; PTSD (post-traumatic stress disorder) F43.10 and Acute stress disorder F43.0 [facility] [address]65100[place], [place] [address] Aug, [facility] [id number] [place] [address] Aug, [facility] [id number] [place] [address] 96300- 3068 Aug, PTSD (post-traumatic stress disorder) F43.10 and Bipolar disorder, current episode mixed, mild F31.61 [place] [address] [place] [address] 88103- 2678 Jun, PTSD (post-traumatic stress disorder) F43.10 ; Bipolar disorder, current episode mixed, mild F31.61 and High risk medication use Z79.899 [place] [id number] [place] [address] 05883- 9678 Apr, Migraine without aura and without status migrainosus, not intractable G43.009 and Gum abscess K05.219 [place] [address] [place] [address] 83478- 2745 Apr, [facility] [address] [facility] [address] [id number] [place] [id number] Mar, Dental examination Z01.[address] [facility] [place] [address] [id number] [place] [id number] Oct, Dental examination Z01.20 [facility] [address] [place] [address] [id number] Oct, Dental examination Z01.20 [facility] [id number] [place] [address] [id number] Sep, Dental caries K02.9 [facility] [id number] [place] [address] [id number] Aug, Dental examination Z01.20 [facility] [id number] [place] [address] 45478- 0436 Jun, Migraine with aura and without status migrainosus, not intractable G43.109 [facility] [id number] [place] [address] [id number] Jan, Dental caries K02.9 [facility] [id number] [place] [address] [phone] December, Dental examination Z01.20 [facility] [address] [id number] Oct, Dental examination Z01.20 and Caries K02.9 [facility] [address] [address]- [address] Oct, [facility] [address] [id number] Sep, Dental caries K02.9 [facility] [address] [address]- 2257 Sep, [facility] [id number] [place] [address] 69678- 6741 Sep, [facility] [address] [address]- [address]88 Sep, Well woman exam Z01.419 ; Encounter [...] infection A59.01 and History of migraine Z86.69 [facility] [address] [address]- [address]287 16 Sep, 2015 Bronchitis J40 [facility] [address] [id number] Sep, Dental examination Z01.20 [facility] [address] [place] [address] -8603 Aug, Migraine G43.909 [facility] [id number] [place] [address] 71189- 4358 Jul, Trichomonas infection A59.9 [facility] [id number] [place] [address] 75448- 7108 Jul, Herpes simplex B00.9 ; Vaginal burning N94.9 and Vaginal discharge N89.8 [facility] [id number] [place] [address] 53532- 4423 Jul, Migraine without aura and without status migrainosus, not intractable G43.009 [facility] [id number] [place] [address] 09397- 0623 Jun, Bipolar affective disorder F31.9 [facility] [address] [address]- 7169 Jun, Intractable migraine without aura and with status migrainosus G43.011 [facility] [id number] [place] [address] 40019- 8943 May, Migraine headache G43.909 [facility] [id number] [place] [address] 13025- 9572 Apr, Candidal vaginitis 112.1 and Vaginitis 616.10 [facility] [id number] [place] [address] 93712- 6312 Nov, [facility] [id number] [place] [address] 61432- 2610 Nov, [facility] [address] [address]- 7250 Jun, [facility] [address] [facility] [id number] [address]- 94[address] Jun, [facility] [address] [facility] [id number] [place] [address]- 65[address] Mar, [facility] [address] [facility] [id number] [address]- 95[address] Mar, [facility] [address] [facility] [id number] [place] [address]- 2815 Feb, [facility] [address] [id number] [place] [address]- 0424 Feb, [facility] [address] [facility] [id number] [place] [address]- [address] Feb, [facility] [address] [facility] [id number] [place] [address]- 2009 Feb, [facility] [address] [facility] [id number] [address]- 0576 Feb, [facility] [address] [facility] [id number] [address]- 3695 Feb, [facility] [address] [id number] [address]- 8694 Feb, [facility] [address] [facility] [id number][place] [address]- 97[address] Feb, [facility] [address] [facility] [id number], [place] [address]- 7512 Feb, [facility] [address] [facility] [id number], [place] [address]- 4896 Feb, IMMUNIZATIONS No Known Immunizations SOCIAL HISTORY Never Assessed REASON FOR VISIT Establish Care/Angel- Ketty HERRING PLAN OF CARE VITAL SIGNS Height 66 in 2017-05-05 Weight 133.8 lbs 2017-05-05 Temperature 98.8 degrees Fahrenheit 2017-05-05 Heart Rate 82 bpm 2017-05-05 Respiratory Rate 20 2017-05-05 BMI 21.59 kg/m2 2017-05-05 Blood pressure systolic 112 mmHg 2017-05-05 Blood pressure diastolic 70 mmHg 2017-05-05 MEDICATIONS Medication Instructions Dosage Frequency Start Date End Date Duration Status Quetiapine Fumarate 100 mg Orally at HS 1 tablet Active Amoxicillin 500 mg Orally every 12 hrs 2 capsules 12h Apr,Apr 10 days Active Bkuqhjymdj-ILKH-Tvcnnrkz 50-325-40 MG Orally every 4 hrs 1 capsule as needed 4h Jun, Active Vistaril 50 mg Orally 1 at HS 1 capsule Active Imitrex 100 MG Orally Once a day 1 tablet as needed 24h Jun, Active Lamotrigine 200 MG Orally Once a day 1 tablet 24h Active BuSpar 15 MG Orally 3 times a day 1 tablet 8h Active Quetiapine Fumarate 25 MG Orally 4 times a day 1 tablet 6h Active Minipress 2 MG Orally at HS 2 capsules Active RESULTS No Results PROCEDURES No Known [...] inpatient 96 hour hold for SI at [facility] 2013?
[2018-01-31] MEDS ORDERED: diphenhydrAMINE 25 MG TAB (BENADRYL) PO ONE (22:15)
--- NOTE | 2018-01-31 22:17 | ED Integumentary General ---
General Chief Complaint: Bite-Animal/Human/Insect Stated Complaint: UNK STING ON R FOREARM, NUMBNESS AND PAIN Nursing Triage Note: PATIENT STATES THAT SHE WAS IN HER BARN AND WAS STUNG BY AN UNKNOWN INSECT APPROX 15 MINS AGO. SHE HAS NO KNOWN INSECT ALLERGIES. SHE STATES SHE CAME STRAIGHT TO THE ER. Source: patient Exam Limitations: no limitations History of Present Illness Date Seen by Provider: Jan 31, 2018 Time Seen by Provider: 22:12 Initial Comments to ER with reports of some sort of an insect sting to the volar aspect of the right forearm 15 as prior to arrival while she was in her barn. She did see a wasp nestbut didn't actually visualize what type of insect stung her. Timing/Duration: just prior to arrival Severity: moderate Location: extremities Possible Cause: insect sting Associated Symptoms: denies symptoms Allergies and Home Medications Allergies Coded Allergies: Penicillins (Verified Allergy, Unknown, RASH, 11/27/13) Sulfa (Sulfonamide Antibiotics) (Unverified Allergy, Unknown, 12/10/13) iodine (Verified Allergy, Unknown, rash, itching, 03/09/15) latex (Verified Allergy, Unknown, RASH, 11/27/13) Home Medications Azithromycin 250 Mg Tablet, 250 MG PO UD TAKE 2 TABLETS ON DAY ONE THEN TAKE 1 TABLET DAILY FOR FOUR MORE DAYS Prescribed by: ANDREA JOSHUA on 09/26/17 1013 Benzonatate 100 Mg Capsule, 100 MG PO TID Prescribed by: ANDREA JOSHUA on 09/26/17 1014 Patient Home Medication List Home Medication List Reviewed: Yes Constitutional: see HPI EENTM: see HPI Respiratory: no symptoms reported Cardiovascular: no symptoms reported Genitourinary: no symptoms reported Musculoskeletal: no symptoms reported Skin: see HPI Psychiatric/Neurological: No Symptoms Reported Endocrine: No Symptoms Reported Past Cejhxjp-Udbpvb-Xfzgep Hx Patient Social History Type Used: Cigarettes Recent Foreign Travel: No Contact w/Someone Who Travel: No Recent Infectious Disease Expo: No Recent Hopitalizations: No Immunizations Up To Date Tetanus Booster (TDap): Unknown Seasonal Allergies Seasonal Allergies: No Past Medical History Surgeries: Yes (LIPOMA REMOVED FROM BACK) Hysterectomy, Tubal Ligation Respiratory: No Cardiac: No Hypertension Neurological: Yes Headaches /Migraines Reproductive Disorders: Yes MORNING SHOW HOST History: Hysterectomy Sexually Transmitted Disease: Yes (HERPES, HX TRICHOMONAS) Gastrointestinal: No Musculoskeletal: No Endocrine: No Cancer: Yes (? CERVICAL CANCER--SELF REPORTED BY PT) Cervical Psychosocial: Yes (PBA) ADD/ADHD, Anxiety, Bipolar, Depression Integumentary: No Blood Disorders: No Family Medical History FH: cancer grandparents Psychosocial problem 19 MOTHER grandparents Physical Exam Vital Signs Vital Signs - First Documented 01/31/18 22:05 Temp 98.1 Pulse 84 Resp 20 B/P (MAP) 118/76 (90) Pulse Ox 99 Capillary Refill : Less Than 3 Seconds General Appearance: WD/WN, no apparent distress HEENT: PERRL/EOMI, normal ENT inspection Neck: non-tender, full range of motion Respiratory: no respiratory distress, no accessory muscle use Gastrointestinal: normal bowel sounds, non tender Extremities: normal range of motion, non-tender Neurologic/Psychiatric: alert, normal mood/affect, oriented x 3 Skin: normal color, warm/dry Skin Problem Character: other (erythematous patch volar right forearm 9cm with minute central punctum no lymphangitis. ) Progress/Results/Core Measures Results/Orders My Orders Orders - ANDREA JOSHUA APRN Diphenhydramine Tablet (Benadryl Tablet) (01/31/18 22:15) Vital Signs/I&O 01/31/18 22:05 Temp 98.1 Pulse 84 Resp 20 B/P (MAP) 118/76 (90) Pulse Ox 99 Blood Pressure Mean: 90 Departure Impression Primary Impression: Insect sting Disposition: 01 HOME, SELF-CARE Condition: Stable Departure-Patient Inst. Decision time for Depature: 22:15 Referrals: [facility] (PCP/Family) Primary Care Physician Patient Instructions: Insect Bites and Stings (DC) Add. Discharge Instructions: 1. Return to ER for any concerns 2. See your doctor next week. Ice pack to this area at 30minute intervals for the next 3-4 hours. It may begin to itch over the next few days. ANDREA JOSHUA APRN Jan 31, 2018 22:17
[2018-01-31 22:19] VITALS: BP 118/76
== END 2018-01-31 22:21 | disposition home or self-care (01) ==
LOC: EDUNIT# 21:55 → ER 21:56
DX: T63.891A Toxic effect of contact with other venomous animals, accidental (unintentional), initial encounter (principal); I10 Essential (primary) hypertension; G43.909 Migraine, unspecified, not intractable, without status migrainosus; F90.9 Attention-deficit hyperactivity disorder, unspecified type; F41.9 Anxiety disorder, unspecified; F31.9 Bipolar disorder, unspecified; Z85.41 Personal history of malignant neoplasm of cervix uteri; Z88.0 Allergy status to penicillin; Z88.2 Allergy status to sulfonamides; Z91.041 Radiographic dye allergy status; Z98.51 Tubal ligation status; Z90.710 Acquired absence of both cervix and uterus
CPT/HCPCS: 99283

== ENCOUNTER 2018-06-23 21:43 | Emergency (ER) | payer SELFPAY ==
[~2018-06-23] VITALS: Ht 170.2 cm; Wt 59.0 kg
[~2018-06-23 21:43] MED LIST changes: -BENZ-13 PO; +BENZ100C18 PO; -OXYC-197 PO; +OXYC1TAB87 PO
--- OUTSIDE RECORDS SUMMARY | 2018-06-23 21:48 | XMS REPORT ---
Author Author MARK BURKS Organization [facility] Address [address] [place] [address] Care Team Providers Care Paste Mixer Liquid Name Role Phone MARK BURKS Unavailable PROBLEMS Type Condition ICD9-CM Code WCY64-GA Code Onset Dates Condition Status SNOMED Code Problem Dyspareunia N94.1 Active 05886576 Problem Migraine without aura and without status migrainosus, not intractable G43.009 Active 714553478 Problem Migraine with aura and without status migrainosus, not intractable G43.109 Active 4657672 Problem Bipolar affective disorder F31.9 Active 63651445 Problem Migraine headache G43.909 Active 40871203 Problem H/O galactorrhea Z87.59 Active 791192245 Problem Other allergic rhinitis J30.89 Active 701368953 Problem Migraine with aura and with status migrainosus, not intractable G43.101 Active 1678283 Problem PTSD (post-traumatic stress disorder) F43.10 Active 28869798 Problem Bipolar disorder, current episode mixed, mild F31.61 Active 362685337 Problem Intractable migraine with aura without status migrainosus G43.119 Active 562100839 Problem Acute stress disorder F43.0 Active 37495152 ALLERGIES No Information ENCOUNTERS Encounter Location Date Diagnosis [facility] [id number], [place] [address] May, [facility] [address], [place] [address] May, [facility] [address], [place] [address] May, [facility] [id number], [place] [address] Apr, Seasonal allergic rhinitis, unspecified trigger J30.2 [place] [id number] [address] Apr, [place] [id number] [place] [address] 89202- 8249 Apr, PTSD (post-traumatic stress disorder) F43.10 and Bipolar disorder, current episode mixed, mild F31.61 [place] [address] [place] [address] 34098- 3382 Mar, Acute left ankle pain M25.572 [place] [id number] [place] [address] 10938- 6161 Feb, PTSD (post-traumatic stress disorder) F43.10 and Bipolar disorder, current episode mixed, mild F31.61 [place] [id number] [place] [address] 87492- 2596 Feb, PTSD (post-traumatic stress disorder) F43.10 and Bipolar disorder, current episode mixed, mild F31.61 [place] [id number] [place] [address] 34493- 1571 Feb, Migraine with aura and with status migrainosus, not intractable G43.101 [place] [id number] [place] [address] 74985- 2368 Feb, Bipolar disorder, current episode mixed, mild F31.61 and PTSD (post-traumatic stress disorder) F43.10 [place] [address] [place] [address] 65895- 9356 Feb, PTSD (post-traumatic stress disorder) F43.10 and Bipolar disorder, current episode mixed, mild F31.61 [place] [address] [place] [address] 58245- 6476 Jan, [place] [id number] [place] [address] 99214- 1787 Jan, [place] [address] [place] [address] 07729- 1350 Jan, Bipolar disorder, current episode mixed, mild F31.61 and PTSD (post-traumatic stress disorder) F43.10 [place] [id number] [place] [address] 27286- 8850 Sep, Intractable migraine with aura without status migrainosus G43.119 [place] [id number] [place] [address] 66449- 5950 Aug, [place] [address] [address]- 3847 Aug, Bipolar disorder, current episode mixed, mild F31.61 ; PTSD (post-traumatic stress disorder) F43.10 and Acute stress disorder F43.0 [place] [address] 57979- 754 Aug, [place] [address] 80487- 4381 Aug, [place] [address] 77153- 1784 Aug, PTSD (post-traumatic stress disorder) F43.10 and Bipolar disorder, current episode mixed, mild F31.61 [place] [id number] [place] [address] 77686- 5556 Jun, PTSD (post-traumatic stress disorder) F43.10 ; Bipolar disorder, current episode mixed, mild F31.61 and High risk medication use Z79.899 [place] [id number] [place] [address] 44342- 1888 08 Apr, 2017 Migraine without aura and without status migrainosus, not intractable G43.009 and Gum abscess K05.[address] [address]- 3720 05 Apr, 2017 [facility] [address] [place] [address] Mar, Dental examination Z01.20 [facility] [address] [place] [address] Oct, Dental examination Z01.20 [facility] [address] [place] [address] [id number] Oct, Dental examination Z01.20 [facility] [id number] [place] [address] [id number] Sep, Dental caries K02.9 [facility] [id number] [place] [address] [id number] Aug, Dental examination Z01.20 [facility] [id number] [place] [address] 33338- 2546 Jun, Migraine with aura and without status migrainosus, not intractable G43.109 [facility] [address] [id number] Jan, Dental caries K02.9 [facility] [address] [id number] December, Dental examination Z01.20 [facility] [id number] [place] [address] [id number] Oct, Dental examination Z01.20 and Caries K02.9 [facility] [id number] [place] [address] 34171- 0356 Oct, [facility] [id number] [place] [address] [id number] Sep, Dental caries K02.9 [facility] [id number] [place] [address] 82131- 9046 Sep, [facility] [address] [place] [address] 38440- 1666 Sep, [facility] [id number] [place] [address] 11349- 1206 Sep, Well woman exam Z01.419 ; Encounter [...] infection A59.01 and History of migraine Z86.69 [facility] [address] 08295- 6993 16 Sep, 2015 Bronchitis J40 [facility] [address] [id number] 04 Sep, 2015 Dental examination Z01.20 [facility] [address] 73497 -5421 09 Aug, 2015 Migraine G43.909 [place] [address] [address]- 0092 Jul, Trichomonas infection A59.9 [place] [address] 41887- 6540 16 Jul, 2015 Herpes simplex B00.9 ; Vaginal burning N94.9 and Vaginal discharge N89.8 [place] [address] 52170- 7184 09 Jul, 2015 Migraine without aura and without status migrainosus, not intractable G43.009 [place] [address] 06573- 9133 10 Jun, 2015 Bipolar affective disorder F31.9 [place] [address] 55115- 9486 02 Jun, 2015 Intractable migraine without aura and with status migrainosus G43.011 [place] [address] 40004- 1562 23 May, 2015 Migraine headache G43.909 [place] [address] [place] [address] 3827 Apr, Candidal vaginitis 112.1 and Vaginitis 616.10 [facility] [address] [facility] [id number] [place] [address]28 Nov, [facility] [address] [facility] [facility] [id number], [place] [address] 7[address] Nov, [facility] [address] [facility] [address] [facility] [id number] [place] [address]- 9382 Jun, [facility] [address] [id number] [place] [address]- 8848 Jun, [facility] [address] [facility] [address] [facility] [id number] [place] [address]- 6133 Mar, [facility] [id number] 9972 Mar, [facility] [id number], [place] [address]- 7692 Feb, [facility] [address] [facility] [facility] [id number], [place] [address]- 7769 Feb, [facility] [id number] 1693 Feb, [facility] [id number], [place] [address]- 2075 Feb, [facility] [address] [facility] [address] [facility] [id number], [place] [address]- 7642 Feb, [facility] [address] [facility] [address] [facility] [id number], [place] [address]- 3833 Feb, [facility] [address] [facility] [address] [facility] [id number], [place] [address]- 8976 Feb, [facility] [address] [facility] [facility] [id number], [place] [address]- 1135 Feb, [facility] [id number], [place] [address]- 4226 Feb, [facility] [address] [facility] [address] [facility] [id number] [place] [address] Feb, IMMUNIZATIONS No Known Immunizations SOCIAL HISTORY Never Assessed REASON FOR VISIT f/u PLAN OF CARE Activity Details Follow Up Next available Reason:anxiety VITAL SIGNS MEDICATIONS Unknown Medications RESULTS No Results PROCEDURES Procedure Date Ordered Result Body Site Psychotherapy, patient &/family, 45 minutes, established patient May 02, 2018 INSTRUCTIONS MEDICATIONS ADMINISTERED No Known Medications MEDICAL (GENERAL) HISTORY Type Description Date Medical History bipolar disorder Medical History PTSD Medical History ICD Medical History ADHD Medical History Cervical Cancer Surgical History tubal ligation 2009 Surgical History lipoma removal from back Surgical History hysterectomy, laparoscopically assisted partial 03/07/2016 Hospitalization History Surgery(s)/Childbirth(s) only Hospitalization History inpatient 96 hour hold for SI [facility] 2013?
--- OUTSIDE RECORDS SUMMARY | 2018-06-23 21:49 | XMS REPORT ---
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 Name Role Phone ROSITAELIZABETH AKERS Unavailable PROBLEMS Type Condition ICD9-CM Code LGB27-OH Code Onset Dates Condition Status SNOMED Code Problem Dyspareunia N94.1 Active 71707984 Problem Migraine without aura and without status migrainosus, not intractable G43.009 Active 638276858 Problem Migraine with aura and without status migrainosus, not intractable G43.109 Active 3208537 Problem Bipolar affective disorder F31.9 Active 56062628 Problem Migraine headache G43.909 Active 13316947 Problem H/O galactorrhea Z87.59 Active 821303835 Problem Other allergic rhinitis J30.89 Active 096052964 Problem Migraine with aura and with status migrainosus, not intractable G43.101 Active 5979834 Problem PTSD (post-traumatic stress disorder) F43.10 Active 49314891 Problem Bipolar disorder, current episode mixed, mild F31.61 Active 529479382 Problem Intractable migraine with aura without status migrainosus G43.119 Active 048631002 Problem Acute stress disorder F43.0 Active 86486057 ALLERGIES No Information ENCOUNTERS Encounter Location Date Diagnosis [place] [address] [place] [address] 49585- 9030 May, [facility] [address], [place] [address]- 5964 May, [facility] [id number] [place] [address] 46536- 8008 May, [facility] [address], [place] [address]- 3280 Apr, Seasonal allergic rhinitis, unspecified trigger J30.2 [place] [address] [place] [address] 48676- 9792 Apr, [place] [id number] [place] [address] 51662- 3023 Apr, PTSD (post-traumatic stress disorder) F43.10 and Bipolar disorder, current episode mixed, mild F31.61 [place] [id number] [place] [address] 73994- 9950 Mar, Acute left ankle pain M25.572 [place] [id number] [place] [address] 69783- 6430 Feb, PTSD (post-traumatic stress disorder) F43.10 and Bipolar disorder, current episode mixed, mild F31.61 [place] [id number] [place] [address] 41580- 5117 Feb, PTSD (post-traumatic stress disorder) F43.10 and Bipolar disorder, current episode mixed, mild F31.61 [place] [id number] [place] [address] 08827- 1270 Feb, Migraine with aura and with status migrainosus, not intractable G43.101 [place] [id number] [place] [address] 10588- 9916 Feb, Bipolar disorder, current episode mixed, mild F31.61 and PTSD (post-traumatic stress disorder) F43.10 [place] [address] [place] [address] 26757- 9351 Feb, PTSD (post-traumatic stress disorder) F43.10 and Bipolar disorder, current episode mixed, mild F31.61 [place] [id number] [place] [address] 54840- 3780 Jan, [place] [id number] [place] [address] 91931- 6088 Jan, [place] [id number] [place] [address] 11600- 0991 Jan, Bipolar disorder, current episode mixed, mild F31.61 and PTSD (post-traumatic stress disorder) F43.10 [place] [id number] [place] [address] 58551- 9494 Sep, Intractable migraine with aura without status migrainosus G43.119 [place] [id number] [place] [address] 81634- 7692 Aug, [place] [address] 90763- 7480 Aug, Bipolar disorder, current episode mixed, mild F31.61 ; PTSD (post-traumatic stress disorder) F43.10 and Acute stress disorder F43.0 [place] [address] 83757- 414 Aug, [place] [address] 80820- 5140 Aug, [place] [address] 91937- 0900 Aug, PTSD (post-traumatic stress disorder) F43.10 and Bipolar disorder, current episode mixed, mild F31.61 [place] [id number] [place] [address] 87467- 4757 Jun, PTSD (post-traumatic stress disorder) F43.10 ; Bipolar disorder, current episode mixed, mild F31.61 and High risk medication use Z79.899 [place] [id number] [place] [address] 13753- 2628 08 Apr, 2017 Migraine without aura and without status migrainosus, not intractable G43.009 and Gum abscess K05.[address] 19854- 8726 05 Apr, 2017 [facility] [address] [place] [address] Mar, Dental examination Z01.20 [facility] [address] [place] [address] Oct, Dental examination Z01.20 [facility] [address] [id number] Oct, Dental examination Z01.20 [facility] [id number] [place] [address] [id number] Sep, Dental caries K02.9 [facility] [id number] [place] [address] [id number] Aug, Dental examination Z01.20 [facility] [id number] [place] [address] 43927 2546 Jun, Migraine with aura and without status migrainosus, not intractable G43.109 [facility] [id number] [place] [address] [id number] Jan, Dental caries K02.9 [facility] [id number] [place] [address] [id number] December, Dental examination Z01.20 [facility] [id number] [place] [address] [id number] Oct, Dental examination Z01.20 and Caries K02.9 [facility] [id number] [place] [address] 27705 2546 Oct, [facility] [address] [place] [address] [id number] Sep, Dental caries K02.9 [facility] [id number] [place] [address] 81996- 4496 Sep, [facility] [address] [place] [address] 62545- 4836 Sep, [facility] [id number] [place] [address] 54228- 2316 Sep, Well woman exam Z01.419 ; Encounter [...] infection A59.01 and History of migraine Z86.69 [facility] [address] 77339- 3037 16 Sep, 2015 Bronchitis J40 [facility] [address] [id number] 04 Sep, 2015 Dental examination Z01.20 [facility] [address] 8[address]99 -0860 09 Aug, 2015 Migraine G43.909 [place] [address] 93840- 3457 Jul, Trichomonas infection A59.9 [place] [address] 19924- 3941 16 Jul, 2015 Herpes simplex B00.9 ; Vaginal burning N94.9 and Vaginal discharge N89.8 [place] [address] 12252- 0860 09 Jul, 2015 Migraine without aura and without status migrainosus, not intractable G43.009 [facility] [address] 31382- 0301 10 Jun, 2015 Bipolar affective disorder F31.9 [place] [address] 70727- 4435 02 Jun, 2015 Intractable migraine without aura and with status migrainosus G43.011 [place] [address] 09902- 5689 May, Migraine headache G43.909 [facility] [address] [address] [place] [address] 6551 Apr, Candidal vaginitis 112.1 and Vaginitis 616.[address] [facility] [address] [id number] [place] [address]- [address]797 Nov, [facility] [address] [facility] [id number] [place] [address]- 3035 Nov, [facility] [address] [id number] [place] [address]- [address] Jun, [facility] [address] [id number] [place] [address]- 5845 Jun, [facility] [address] [facility] [id number] [place] [address]- 4428 Mar, [facility] [address] [facility] [id number] [place] [address]- [address] Mar, [facility] [address] [facility] [id number] [place] [address]- 8659 Feb, [facility] [address] [id number] [place] [address]- 7499 Feb, [facility] [address] [facility] [id number] [address]- 4779 Feb, [facility] [address] [id number], [place] [address]- [address]169 Feb, [facility] [address] [facility] [id number], [place] [address]- 6087 Feb, [facility] [place] [facility] [address] [id number] [place] [address]- 7489 Feb, [facility] [address] [facility] [id number] [address]- 0689 Feb, [facility] [place] [facility] [address] [facility] [id number] [place] [address]- 5871 Feb, [facility] [address] [facility] [id number] [place] [address] Feb, [facility] [address] [facility] [id number] [place] [address]- 0034 Feb, IMMUNIZATIONS No Known Immunizations SOCIAL HISTORY Never Assessed REASON FOR VISIT med refill PLAN OF CARE VITAL SIGNS MEDICATIONS Medication Instructions Dosage Frequency Start Date End Date Duration Status Prozac 10 mg Orally Once a day 1 capsule 24h Feb, 30 day(s) Active RESULTS No Results PROCEDURES No Known [...]
--- OUTSIDE RECORDS SUMMARY | 2018-06-23 21:49 | XMS REPORT ---
Author Author NAREN VU [facility] Address [address] [place] [address] Care Team Providers Care Director Camp Name Role Phone NAREN VU Unavailable PROBLEMS Type Condition ICD9-CM Code GRZ46-QE Code Onset Dates Condition Status SNOMED Code Problem Dyspareunia N94.1 Active 62775901 Problem Migraine without aura and without status migrainosus, not intractable G43.009 Active 936096915 Problem Migraine with aura and without status migrainosus, not intractable G43.109 Active 0647666 Problem Bipolar affective disorder F31.9 Active 09815746 Problem Migraine headache G43.909 Active 39283370 Problem H/O galactorrhea Z87.59 Active 605083400 Problem Other allergic rhinitis J30.89 Active 692892983 Problem Migraine with aura and with status migrainosus, not intractable G43.101 Active 6000367 Problem PTSD (post-traumatic stress disorder) F43.10 Active 76371626 Problem Bipolar disorder, current episode mixed, mild F31.61 Active 616722080 Problem Intractable migraine with aura without status migrainosus G43.119 Active 398482127 Problem Acute stress disorder F43.0 Active 49406498 ALLERGIES Substance Reaction Event Type Date Status Latex itching Drug Allergy Mar, Active SulfADIAZINE shortness of breath Drug Allergy Mar, Active Iodine itching Drug Allergy Mar, Active ENCOUNTERS Encounter Location Date Diagnosis [facility] [address] [facility] [id number] [address] May, [facility] [address] [facility] [id number] [id number] May, [facility] [address] [facility] [id number], [place] [address] May, [facility] [id number] [place] [address]75- [address]30 Apr, Seasonal allergic rhinitis, unspecified trigger J30.2 [place] [id number] [place] [address]222- 0816 Apr, [facility] [id number] [place] [address] 70508- 9906 Apr, PTSD (post-traumatic stress disorder) F43.10 and Bipolar disorder, current episode mixed, mild F31.61 [place] [id number] [place] [address] 07408- 8150 Mar, Acute left ankle pain M25.572 [place] [id number] [place] [address] 14668- 3278 Feb, PTSD (post-traumatic stress disorder) F43.10 and Bipolar disorder, current episode mixed, mild F31.61 [place] [id number] [place] [address] 74123- 6651 Feb, PTSD (post-traumatic stress disorder) F43.10 and Bipolar disorder, current episode mixed, mild F31.61 [place] [id number] [place] [address] 13003- 2252 Feb, Migraine with aura and with status migrainosus, not intractable G43.101 [place] [id number] [place] [address] 44799- 1699 Feb, Bipolar disorder, current episode mixed, mild F31.61 and PTSD (post-traumatic stress disorder) F43.10 [place] [address] [place] [address] 39850- 2045 Feb, PTSD (post-traumatic stress disorder) F43.10 and Bipolar disorder, current episode mixed, mild F31.61 [facility] [address] [place] [address] 15635- 0170 Jan, [place] [id number] [place] [address] 03538- 4087 Jan, [place] [id number] [place] [address] 23604- 6021 Jan, Bipolar disorder, current episode mixed, mild F31.61 and PTSD (post-traumatic stress disorder) F43.10 [place] [id number] [place] [address] 10475- 9316 16 Sep, 2017 Intractable migraine with aura without status migrainosus G43.119 [place] [id number] [place] [address] 64425- 9038 Aug, [place] [id number] [place] [address] 55860- 4491 Aug, Bipolar disorder, current episode mixed, mild F31.61 ; PTSD (post-traumatic stress disorder) F43.10 and Acute stress disorder F43.0 [place] [id number] [place] [address] 48449- 9704 Aug, [place] [id number] [place] [address] 09992- 1039 Aug, [place] [id number] [place] [address] 67786- 0198 Aug, PTSD (post-traumatic stress disorder) F43.10 and Bipolar disorder, current episode mixed, mild F31.61 [place] [id number] [place] [address] 08603- 8027 Jun, PTSD (post-traumatic stress disorder) F43.10 ; Bipolar disorder, current episode mixed, mild F31.61 and High risk medication use Z79.899 [place] [id number] [place] [address] 64537- 7202 Apr, Migraine without aura and without status migrainosus, not intractable G43.009 and Gum abscess K05.219 [facility] [address] [place] [address] 19322- 9117 Apr, [facility] [address] [place] [address] Mar, Dental examination Z01.20 [facility] [address] [place] [address] Oct, Dental examination Z01.20 [facility] [id number] [place] [address] [id number] Oct, Dental examination Z01.20 [facility] [id number] [place] [address] [phone] Sep, Dental caries K02.9 [facility] [address] [id number] Aug, Dental examination Z01.20 [facility] [address] [address] Jun, Migraine with aura and without status migrainosus, not intractable G43.109 [facility] [address] [id number] Jan, Dental caries K02.9 [facility] [address] [id number] December, Dental examination Z01.20 [facility] [address] [id number] Oct, Dental examination Z01.20 and Caries K02.9 [facility] [id number] [place] [address] 23436- 9346 Oct, [facility] [id number] [place] [address] [id number] Sep, Dental caries K02.9 [facility] [id number] [place] [address] 25626- 2963 Sep, [facility] [address] [id number]- 2153 Sep, [facility] [id number] [place] [address] [id number]- 1102 Sep, Well woman exam Z01.419 ; Encounter [...] infection A59.01 and History of migraine Z86.69 [facility] [address] [address]- [address] 16 Sep, 2015 Bronchitis J40 [facility] [address] [id number] Sep, 2015 Dental examination Z01.20 [facility] [address] [address] 09 Aug, 2015 Migraine G43.909 [place] [address] [address] 16 Jul, 2015 Trichomonas infection A59.9 [place] [address] 13152- 0376 16 Jul, 2015 Herpes simplex B00.9 ; Vaginal burning N94.9 and Vaginal discharge N89.8 [place] [address] [address]751- 9107 09 Jul, 2015 Migraine without aura and without status migrainosus, not intractable G43.009 [facility] [address] 07293- 8797 10 Jun, 2015 Bipolar affective disorder F31.9 [facility] [address] 04598- 5110 02 Jun, 2015 Intractable migraine without aura and with status migrainosus G43.011 [place] [address] [place] [address] May, Migraine headache G43.909 [facility] [address] [address] Apr, Candidal vaginitis 112.1 and Vaginitis 616.10 [facility] [address] [address] Nov, [facility] [address] [facility] [id number] [place] [address] 03599- 1160 Nov, [facility] [id number] [address] Jun, [facility] [id number] [place] [address] 34243- 6332 Jun, [facility] [address] [address] Mar, [facility] [address] [address] Mar, [facility] [id number] [address] 8107 Feb, [facility] [address] [address] 0[address] Feb, [facility] [address], [place] [address] 9080 Feb, [facility] [address] [facility] [id number], [place] [address] Feb, [facility] [address] [facility] [id number] [address] 7[address] Feb, [facility] [id number] [address] 8494 Feb, [facility] [id number] [address] 1724 Feb, [facility] [id number] [address]- 8607 Feb, [facility] [address] [facility] [id number] [place] [address]- 8766 Feb, [facility] [address] [facility] [id number] [place] [address] Feb, IMMUNIZATIONS No Known Immunizations SOCIAL HISTORY Never Assessed REASON FOR VISIT Pain (acute), PT reports her left ankle has been hurting for the last two weeks and denies any injury that she knows of. PT notes it hurts to put some weight on it. -Billy HERRING PLAN OF CARE Activity Details Follow Up prn Reason: VITAL SIGNS Height 66 in 2018-04-17 Weight 135.1 lbs 2018-04-17 Temperature 98.9 degrees Fahrenheit 2018-04-17 Heart Rate 75 bpm 2018-04-17 Respiratory Rate 20 2018-04-17 Oximetry 98 % 2018-04-17 BMI 21.80 kg/m2 2018-04-17 Blood pressure systolic 120 mmHg 2018-04-17 Blood pressure diastolic 72 mmHg 2018-04-17 MEDICATIONS Medication Instructions Dosage Frequency Start Date End Date Duration Status Seroquel 25 MG Orally four times a day 1 tablet 6h Jun, Active Upomeupffp-DUQK-Keqthkgy 50-325-40 MG TAKE ONE TABLET BY MOUTH EVERY 4 HOURS NEEDED 10 Active Seroquel 200 MG Orally every bedtime 0.5 tablet Jun, Active Prazosin HCl 1 MG Orally at bedtime for night terrors 5 capsules Aug, Active Imitrex 100 mg Orally Once a day 1 tablet as needed 24h Feb, Active HydrOXYzine HCl 50 MG Orally TID PRN 0.5-2 tabs Active Prozac 10 MG Orally Once a day 1 capsule 24h Feb, 30 day(s) Active Lamotrigine 25 MG Orally daily 1 tablet every day for 2 week then take 2 tablets every day 24h Active Clonazepam 0.5 MG Orally Once a day as needed 1 tablet Aug, Active RESULTS Name Result Date Reference Range Xray : Ankle, Left 2 views (IN HOUSE) 2018-04-17 PROCEDURES Procedure Date Ordered Result Body Site X-RAY EXAM OF ANKLE Apr 17, 2018 INSTRUCTIONS MEDICATIONS ADMINISTERED No Known Medications MEDICAL (GENERAL) HISTORY Type Description Date Medical History bipolar disorder Medical History PTSD Medical History ICD Medical History ADHD Medical History Cervical Cancer Surgical History tubal ligation 2009 Surgical History lipoma removal from back Surgical History hysterectomy, laparoscopically assisted partial 03/07/2016 Hospitalization History Surgery(s)/Childbirth(s) only Hospitalization History inpatient 96 hour hold for SI at [facility]'s unit 2013?
--- OUTSIDE RECORDS SUMMARY | 2018-06-23 21:50 | XMS REPORT ---
Author Author DEVANG XIONG Organization [facility] Address [address] [place] [address] Care Team Providers Care Licensed Midwife Name Role Phone DEVANG XIONG Unavailable PROBLEMS Type Condition ICD9-CM Code LYT52-IX Code Onset Dates Condition Status SNOMED Code Problem Dyspareunia N94.1 Active 25084162 Problem Migraine with aura and without status migrainosus, not intractable G43.109 Active 5573660 Problem H/O galactorrhea Z87.59 Active 182131499 Problem Bipolar affective disorder F31.9 Active 57726043 Problem Migraine headache G43.909 Active 75932483 Problem Migraine with aura and with status migrainosus, not intractable G43.101 Active 6792568 Problem Intractable migraine with aura without status migrainosus G43.119 Active 171157161 Problem PTSD (post-traumatic stress disorder) F43.10 Active 03291660 Problem Migraine without aura and without status migrainosus, not intractable G43.009 Active 016058227 Problem Acute stress disorder F43.0 Active 29816590 Problem Bipolar disorder, current episode mixed, mild F31.61 Active 878333595 ALLERGIES Substance Reaction Event Type Date Status Latex itching Drug Allergy Feb, Active SulfADIAZINE shortness of breath Drug Allergy Feb, Active Iodine itching Drug Allergy Feb, Active ENCOUNTERS Encounter Location Date Diagnosis [facility] [address] [facility] [id number] [address] May, [facility] [address] [id number] [address] May, [facility] [address] [id number] [address] May, [facility] [address] [id number] [address] Apr, [place] [address] [place] [address] 89083- 2482 Apr, PTSD (post-traumatic stress disorder) F43.10 and Bipolar disorder, current episode mixed, mild F31.61 [place] [id number] [place] [address] 74632- 3526 Mar, Acute left ankle pain M25.572 [place] [id number] [place] [address] 30105- 1519 Feb, PTSD (post-traumatic stress disorder) F43.10 and Bipolar disorder, current episode mixed, mild F31.61 [place] [id number] [place] [address] 33529- 9702 Feb, PTSD (post-traumatic stress disorder) F43.10 and Bipolar disorder, current episode mixed, mild F31.61 [place] [id number] [place] [address] 06566- 9730 Feb, Migraine with aura and with status migrainosus, not intractable G43.101 [place] [id number] [place] [address] 34596- 4988 Feb, Bipolar disorder, current episode mixed, mild F31.61 and PTSD (post-traumatic stress disorder) F43.10 [place] [address] [place] [address] 89378- 0266 Feb, PTSD (post-traumatic stress disorder) F43.10 and Bipolar disorder, current episode mixed, mild F31.61 [place] [address] [address] Jan, [place] [id number] [place] [address] 11125- 9541 Jan, [place] [id number] [place] [address] 94410- 3523 Jan, Bipolar disorder, current episode mixed, mild F31.61 and PTSD (post-traumatic stress disorder) F43.10 [place] [address] [address] Sep, Intractable migraine with aura without status migrainosus G43.119 [facility] [address] [place] [address] 57044- 4537 Aug, [facility] [id number] [place] [address] 67232- 4875 Aug, Bipolar disorder, current episode mixed, mild F31.61 ; PTSD (post-traumatic stress disorder) F43.10 and Acute stress disorder F43.0 [facility] [address] [place] [address] 93438- 1538 Aug, [place] [id number] [place] [address] 30900- 5356 Aug, [place] [id number] [place] [address] 82959- 2901 Aug, PTSD (post-traumatic stress disorder) F43.10 and Bipolar disorder, current episode mixed, mild F31.61 [facility] [address] [place] [address] 85015- 4614 Jun, PTSD (post-traumatic stress disorder) F43.10 ; Bipolar disorder, current episode mixed, mild F31.61 and High risk medication use Z79.899 [facility] [address] [place] [address] 42626- 6508 08 Apr, 2017 Migraine without aura and without status migrainosus, not intractable G43.009 and Gum abscess K05.219 [facility] [address] [place] [address] 17905- 3891 05 Apr, 2017 [facility] [address] [place] [address] Mar, Dental examination Z01.20 [facility] [address] [place] [address] Oct, Dental examination Z01.20 [facility] [id number] [place] [address] [id number] Oct, Dental examination Z01.20 [facility] [address] [id number] Sep, Dental caries K02.9 [facility] [id number] [place] [address] [id number] Aug, Dental examination Z01.20 [facility] [id number] [place] [address] 61805- 2546 Jun, Migraine with aura and without status migrainosus, not intractable G43.109 [facility] [id number] [place] [address] [id number] Jan, Dental caries K02.9 [facility] [id number] [place] [address] [id number] December, Dental examination Z01.20 [facility] [id number] [place] [address] [id number] Oct, Dental examination Z01.20 and Caries K02.9 [facility] [address] [place] [address] 83105- 2546 Oct, [facility] [id number] [place] [address] [id number] Sep, Dental caries K02.9 [facility] [address] [place] [address] 10453- 4376 Sep, [facility] [address] [place] [address] 56935- 8366 Sep, [facility] [address] [place] [address] 76842- 9116 Sep, Well woman exam Z01.419 ; Encounter [...] infection A59.01 and History of migraine Z86.69 [facility] [address] [address] 16 Sep, 2015 Bronchitis J40 [facility] [address] [id number] 04 Sep, 2015 Dental examination Z01.20 [facility] [address] [address] 09 Aug, 2015 Migraine G43.909 [place] [address] 6[address]- 1012 Jul, Trichomonas infection A59.9 [place] [address] 19775- 2619 Jul, Herpes simplex B00.9 ; Vaginal burning N94.9 and Vaginal discharge N89.8 [place] [address] [address]- 76[address] 09 Jul, 2015 Migraine without aura and without status migrainosus, not intractable G43.009 [place] [id number] [place] [address] 83145- 5245 10 Jun, 2015 Bipolar affective disorder F31.9 [place] [address] 38962- 0848 02 Jun, 2015 Intractable migraine without aura and with status migrainosus G43.011 [place] [address] 03167- 9050 May, Migraine headache G43.909 [place] [address] 57809- 9176 02 Sep, 2015 Candidal vaginitis 112.1 and Vaginitis 616.10 [facility] [address] [id number] [place] [address] Nov, [facility] [address] [id number] [place] [address] 4616 Nov, [facility] [address] [id number] [place] [address] 2237 Jun, [facility] [address] [id number] [place] [address]- 6563 Jun, [facility] [address] [id number] [place] [address]- 3812 Mar, [facility] [address] [id number] [place] [address]- 8953 Mar, [facility] [address] [id number] [place] [address]- 8975 Feb, [facility] [address] [id number] [place] [address]- 2002 Feb, [facility] [address] [id number] [place] [address]- 0189 Feb, [facility] [address] [id number] [place] [address]- 1008 Feb, [facility] [address] [id number] [address] 0751 Feb, [facility] [address] [id number] [place] [address]- 1787 Feb, [facility] [address] [id number] [place] [address]- 6918 Feb, [facility] [address] [id number] [place] [address]- 8490 Feb, [facility] [address] [id number] [place] [address]- 3698 Feb, [facility] [place] [facility] [address] [facility] [id number] [place] Feb, IMMUNIZATIONS Vaccine Route Administration Date Status PHENERGAN 50MG/ML IM Intramuscular March 15, 2018 Administered TORADOL (IM) 60 MG/2ML (UP TO 15 MG) IM Intramuscular March 15, 2018 Administered SOCIAL HISTORY Never Assessed REASON FOR VISIT HX of Migraines, one acutely started at 0300. LEVI Landers PLAN OF CARE VITAL SIGNS Height 66 in 2018-03-15 Weight 134.8 lbs 2018-03-15 Temperature 98.9 degrees Fahrenheit 2018-03-15 Heart Rate 80 bpm 2018-03-15 Respiratory Rate 18 2018-03-15 BMI 21.75 kg/m2 2018-03-15 Blood pressure systolic 114 mmHg 2018-03-15 Blood pressure diastolic 76 mmHg 2018-03-15 MEDICATIONS Medication Instructions Dosage Frequency Start Date End Date Duration Status Prazosin HCl 1 MG Orally at bedtime for night terrors 5 capsules Aug, Active Clonazepam 0.5 MG Orally Once a day as needed 1 tablet Aug, Active Lamotrigine 25 MG Orally daily 1 tablet every day for 2 week then take 2 tablets every day 24h Active Klliqgxaqs-UOVK-Tycwnjcu 50-325-40 MG TAKE ONE TABLET BY MOUTH EVERY 4 HOURS NEEDED 10 Active Seroquel 200 MG Orally every bedtime 1 tablet Jun, Active Seroquel 25 MG Orally four times a day 1 tablet 6h Jun, Active Imitrex 100 mg Orally Once a day 1 tablet as needed 24h Feb, Active HydrOXYzine HCl 50 MG Orally TID PRN 0.5-2 tabs Active RESULTS No Results PROCEDURES Procedure Date Ordered Result Body Site TORADOL (IM) 60 MG/2ML (UP TO 15 MG) March 15, 2018 PHENERGAN 50MG/ML March 15, 2018 THER/PROPH/DIAG INJ, SC/IM March 15, 2018 INSTRUCTIONS MEDICATIONS ADMINISTERED No Known Medications MEDICAL (GENERAL) HISTORY Type Description Date Medical History bipolar disorder Medical History PTSD Medical History ICD Medical History ADHD Medical History Cervical Cancer Surgical History tubal ligation 2009 Surgical History lipoma removal from back Surgical History hysterectomy, laparoscopically assisted partial 03/07/2016 Hospitalization History Surgery(s)/Childbirth(s) only Hospitalization History inpatient 96 hour hold for SI at [facility] 2013?
--- OUTSIDE RECORDS SUMMARY | 2018-06-23 21:50 | XMS REPORT ---
Author Author DEBORAELIZABETH Organization [facility] Address [address] [place] [address] Care Team Providers Care Lan Support Specialist Name Role Phone ROSITAELIZABETH AKERS Unavailable PROBLEMS Type Condition ICD9-CM Code OWE51-BQ Code Onset Dates Condition Status SNOMED Code Problem Dyspareunia N94.1 Active 11650866 Problem Migraine with aura and without status migrainosus, not intractable G43.109 Active 8393532 Problem H/O galactorrhea Z87.59 Active 845049189 Problem Bipolar affective disorder F31.9 Active 53869914 Problem Migraine headache G43.909 Active 40868365 Problem Migraine with aura and with status migrainosus, not intractable G43.101 Active 5986184 Problem Intractable migraine with aura without status migrainosus G43.119 Active 834989677 Problem PTSD (post-traumatic stress disorder) F43.10 Active 99344294 Problem Migraine without aura and without status migrainosus, not intractable G43.009 Active 528198840 Problem Acute stress disorder F43.0 Active 70556228 Problem Bipolar disorder, current episode mixed, mild F31.61 Active 025779922 ALLERGIES Substance Reaction Event Type Date Status Latex itching Drug Allergy Feb, Active SulfADIAZINE shortness of breath Drug Allergy Feb, Active Iodine itching Drug Allergy Feb, Active ENCOUNTERS Encounter Location Date Diagnosis [facility] [address] [facility] [id number] [address] May, [facility] [address] [id number], [place] [address] May, [facility] [address] [id number], [place] [address] 3[address] May, [facility] [address] [id number], [place] [address] Apr, [facility] [address], [place] [address] Apr, PTSD (post-traumatic stress disorder) F43.10 and Bipolar disorder, current episode mixed, mild F31.61 [facility] [address] [place] [address] 81931- 3062 Mar, Acute left ankle pain M25.572 [place] [id number] [place] [address] 49407- 0871 Feb, PTSD (post-traumatic stress disorder) F43.10 and Bipolar disorder, current episode mixed, mild F31.61 [place] [id number] [place] [address] 27852- 3870 Feb, PTSD (post-traumatic stress disorder) F43.10 and Bipolar disorder, current episode mixed, mild F31.61 [place] [id number] [place] [address] 85007- 8205 Feb, Migraine with aura and with status migrainosus, not intractable G43.101 [place] [address] [place] [address] 66411- 1935 Feb, Bipolar disorder, current episode mixed, mild F31.61 and PTSD (post-traumatic stress disorder) F43.10 [place] [address], [place] [address]- 6874 Feb, PTSD (post-traumatic stress disorder) F43.10 and Bipolar disorder, current episode mixed, mild F31.61 [place] [address], [place] [address]- 1319 Jan, [place] [id number] [place] [address] 80446- 7463 Jan, [facility] [address] [place] [address] 99216- 3892 Jan, Bipolar disorder, current episode mixed, mild F31.61 and PTSD (post-traumatic stress disorder) F43.10 [facility] [address], [place] [address]- 9206 Sep, Intractable migraine with aura without status migrainosus G43.119 [facility] [address] [place] [address] 95762- 1376 Aug, [facility] [id number] [place] [address] 84807- 0794 Aug, Bipolar disorder, current episode mixed, mild F31.61 ; PTSD (post-traumatic stress disorder) F43.10 and Acute stress disorder F43.0 [place] [id number] [place] [address] 46307- 0391 Aug, [place] [id number] [place] [address] 21312- 1045 Aug, [place] [id number] [place] [address] 56226- 8024 Aug, PTSD (post-traumatic stress disorder) F43.10 and Bipolar disorder, current episode mixed, mild F31.61 [place] [address] [place] [address] 30995- 3276 Jun, PTSD (post-traumatic stress disorder) F43.10 ; Bipolar disorder, current episode mixed, mild F31.61 and High risk medication use Z79.899 [facility] [address] [place] [address] 25647- 4949 Apr, Migraine without aura and without status migrainosus, not intractable G43.009 and Gum abscess K05.219 [facility] [id number] [place] [address] 76589- 9912 05 Apr, 2017 [facility] [address] [place] [address] Mar, Dental examination Z01.20 [facility] [address] [place] [address] Oct, Dental examination Z01.20 [facility] [address] [place] [id number] Oct, Dental examination Z01.20 [facility] [address] [place] [address] [id number] Sep, Dental caries K02.9 [facility] [id number] [place] [address] [id number] Aug, Dental examination Z01.20 [facility] [id number] [place] [address] 47141- 2546 Jun, Migraine with aura and without status migrainosus, not intractable G43.109 [facility] [id number] [place] [address] [id number] Jan, Dental caries K02.9 [facility] [id number] [place] [address] [id number] December, Dental examination Z01.20 [facility] [id number] [place] [address] [id number] Oct, Dental examination Z01.20 and Caries K02.9 [facility] [id number] [place] [address] 91360 2546 Oct, [facility] [id number] [place] [address] [id number] Sep, Dental caries K02.9 [facility] [id number] [place] [address] 43851- 1686 Sep, [facility] [id number] [place] [address] 96722- 8356 Sep, [facility] [address] [place] [address] 75385- 2666 Sep, 2016 Well woman exam Z01.419 ; Encounter for [...] infection A59.01 and History of migraine Z86.69 [facility] [address] [address]- 2621 16 Sep, 2015 Bronchitis J40 [facility] [address] [id number] 04 Sep, 2015 Dental examination Z01.[address] [facility] [address] [address] 09 Aug, 2015 Migraine G43.909 [place] [address] 69454- 3150 Jul, Trichomonas infection A59.9 [place] [address] 07937- 1375 Jul, Herpes simplex B00.9 ; Vaginal burning N94.9 and Vaginal discharge N89.8 [place] [address] 50276- 3938 09 Jul, 2015 Migraine without aura and without status migrainosus, not intractable G43.009 [facility] [address] 15570- 1031 10 Jun, 2015 Bipolar affective disorder F31.9 [place] [address] 31213- 6183 02 Jun, 2015 Intractable migraine without aura and with status migrainosus G43.011 [place] [address] 78316- 4499 May, Migraine headache G43.909 [place] [address] 41703- 5016 Apr, Candidal vaginitis 112.1 and Vaginitis 616.10 [facility] [address] [id number] [place] [address] 7415 Nov, [facility] [address] [id number] [place] [address] Nov, [facility] [address] [id number] [place] [address]- 7638 Jun, [facility] [address] [id number] [place] [address]- 9461 Jun, [facility] [address] [id number] [place] [address]- 6760 Mar, [facility] [address] [id number] [place] [address]- 1412 Mar, [facility] [address] [id number] [place] [address]- 2092 Feb, [facility] [address] [id number] [place] [address]- 8766 Feb, [facility] [address] [id number] [place] [address]- 2726 Feb, [facility] [address] [facility] [id number] [place] [address]- 0967 Feb, [facility] [address] [id number] [place] [address]- 7331 Feb, [facility] [address] [id number] [address]- 2686 Feb, [facility] [address] [id number] [place] [address]- 1688 Feb, [facility] [address] [id number] [place] [address]- 7487 Feb, [facility] [address] [id number] [address] Feb, [facility] [address] [facility] [id number] [place] [address]- 4953 Feb, IMMUNIZATIONS No Known Immunizations SOCIAL HISTORY Never Assessed REASON FOR VISIT rocael/vivi Mccoy MA PLAN OF CARE Activity Details Follow Up 3 Months, prn Reason: VITAL SIGNS Height 66 in 2018-03-15 Weight 136.6 lbs 2018-03-15 Heart Rate 71 bpm 2018-03-15 Respiratory Rate 20 2018-03-15 BMI 22.05 kg/m2 2018-03-15 Blood pressure systolic 122 mmHg 2018-03-15 Blood pressure diastolic 78 mmHg 2018-03-15 MEDICATIONS Medication Instructions Dosage Frequency Start Date End Date Duration Status Seroquel 200 MG Orally every bedtime 1 tablet Jun, Active Kcfqxfzvcr-OQCS-Xswzzwqt 50-325-40 MG TAKE ONE TABLET BY MOUTH EVERY 4 HOURS NEEDED 10 Active HydrOXYzine HCl 50 MG Orally TID PRN 0.5-2 tabs Active Clonazepam 0.5 MG Orally Once a day as needed 1 tablet Aug, Active Seroquel 25 MG Orally four times a day 1 tablet 6h Jun, Active Lamotrigine 25 MG Orally daily 1 tablet every day for 2 week then take 2 tablets every day 24h Active Prazosin HCl 1 MG Orally at bedtime for night terrors 5 capsules Aug, Active RESULTS No Results PROCEDURES No Known [...] [facility]
--- OUTSIDE RECORDS SUMMARY | 2018-06-23 21:50 | XMS REPORT ---
Author Author MARK BURKS Organization [facility] Address [address] [place] [address] Care Team Providers Care Instant Print Operator Name Role Phone LUKE BURKSWIN Unavailable PROBLEMS Type Condition ICD9-CM Code THY07-YX Code Onset Dates Condition Status SNOMED Code Problem Dyspareunia N94.1 Active 41639349 Problem Migraine with aura and without status migrainosus, not intractable G43.109 Active 3935619 Problem H/O galactorrhea Z87.59 Active 203140997 Problem Bipolar affective disorder F31.9 Active 48614187 Problem Migraine headache G43.909 Active 76402015 Problem Migraine with aura and with status migrainosus, not intractable G43.101 Active 4581665 Problem Intractable migraine with aura without status migrainosus G43.119 Active 574533922 Problem PTSD (post-traumatic stress disorder) F43.10 Active 92224625 Problem Migraine without aura and without status migrainosus, not intractable G43.009 Active 445249048 Problem Acute stress disorder F43.0 Active 44542571 Problem Bipolar disorder, current episode mixed, mild F31.61 Active 307352256 ALLERGIES No Information ENCOUNTERS Encounter Location Date Diagnosis [facility] [id number] [address] May, [facility] [id number], [place] [address] May, [facility] [id number] [place] [address] 01956- 1559 May, [facility] [id number] [place] [address] 18077- 3368 Apr, [facility] [address], [place] [address] Apr, PTSD (post-traumatic stress disorder) F43.10 and Bipolar disorder, current episode mixed, mild F31.61 [facility] [address] [place] [address] 92320- 6022 Mar, Acute left ankle pain M25.572 [facility] [address] [place] [address] 64296- 0844 Feb, PTSD (post-traumatic stress disorder) F43.10 and Bipolar disorder, current episode mixed, mild F31.61 [facility] [address] [place] [address] 03562- 6145 Feb, PTSD (post-traumatic stress disorder) F43.10 and Bipolar disorder, current episode mixed, mild F31.61 [place] [id number] [place] [address] 09562- 9470 Feb, Migraine with aura and with status migrainosus, not intractable G43.101 [place] [id number] [place] [address] 78050- 3617 Feb, Bipolar disorder, current episode mixed, mild F31.61 and PTSD (post-traumatic stress disorder) F43.10 [place] [id number] [place] [address] 72271- 7652 Feb, PTSD (post-traumatic stress disorder) F43.10 and Bipolar disorder, current episode mixed, mild F31.61 [place] [address] [address] Jan, [place] [address] [place] [address] 64881- 9037 Jan, [place] [id number] [place] [address] 83726- 5943 Jan, Bipolar disorder, current episode mixed, mild F31.61 and PTSD (post-traumatic stress disorder) F43.10 [place] [address], [place] [address] 0[address] Sep, Intractable migraine with aura without status migrainosus G43.119 [place] [id number], [place] [address] Aug, [place] [id number] [place] [address] 65283- 5944 Aug, Bipolar disorder, current episode mixed, mild F31.61 ; PTSD (post-traumatic stress disorder) F43.10 and Acute stress disorder F43.0 [place] [id number] [place] [address] 61344- 5636 Aug, [place] [id number] [place] [address] 74071- 4322 Aug, [place] [id number] [place] [address] 94973- 4755 Aug, PTSD (post-traumatic stress disorder) F43.10 and Bipolar disorder, current episode mixed, mild F31.61 [place] [address] [place] [address] 40342- 1543 Jun, PTSD (post-traumatic stress disorder) F43.10 ; Bipolar disorder, current episode mixed, mild F31.61 and High risk medication use Z79.899 [place] [id number] [place] [address] 39096- 5020 08 Apr, 2017 Migraine without aura and without status migrainosus, not intractable G43.009 and Gum abscess K05.219 [place] [id number] [place] [address] 75852- 4939 05 Apr, 2017 [facility] [address] [place] [address] Mar, Dental examination Z01.20 [facility] [address] [place] [address] Oct, Dental examination Z01.20 [facility] [address] [place] [address] [id number] Oct, Dental examination Z01.20 [facility] [id number] [place] [address] [id number] Sep, Dental caries K02.9 [facility] [address] [id number] Aug, Dental examination Z01.20 [facility] [address] [place] [address] 59799 2546 Jun, Migraine with aura and without status migrainosus, not intractable G43.109 [facility] [id number] [place] [address] [id number] Jan, Dental caries K02.9 [facility] [id number] [place] [address] [id number] December, Dental examination Z01.20 [facility] [id number] [place] [address] [id number] Oct, Dental examination Z01.20 and Caries K02.9 [facility] [address] [place] [address] 00524 2546 Oct, [facility] [address] [place] [address] [id number] Sep, Dental caries K02.9 [facility] [id number] [place] [address] 38864- 6116 Sep, [facility] [address] [place] [address] 429172- 4296 Sep, [facility] [address] [place] [address] 00113- 8236 Sep, Well woman exam Z01.419 ; Encounter [...] migraine Z86.69 [facility] [id number] [place] [address] 10867- 4660 16 Sep, 2015 Bronchitis J40 [facility] [address] [id number] 04 Sep, 2015 Dental examination Z01.20 [facility] [address] [address] 09 Aug, 2015 Migraine G43.909 [place] [address] 62208- 0949 16 Jul, 2015 Trichomonas infection A59.9 [place] [address] 78813- 7692 Jul, Herpes simplex B00.9 ; Vaginal burning N94.9 and Vaginal discharge N89.8 [place] [address] 76679- 8078 09 Jul, 2015 Migraine without aura and without status migrainosus, not intractable G43.009 [place] [address] 75803- 5643 10 Jun, 2015 Bipolar affective disorder F31.9 [place] [address] 61839- 4957 02 Jun, 2015 Intractable migraine without aura and with status migrainosus G43.011 [place] [address] 03985- 1074 23 May, 2015 Migraine headache G43.909 [place] [address] 83360- 8265 02 Apr, 2015 Candidal vaginitis 112.1 and Vaginitis 616.10 [place] [address] 37571- 2104 Nov, [facility] [address] [facility] [id number] [place] [address]- 7317 Nov, [facility] [address] [facility] [id number] [place] [address]- 8983 Jun, [facility] [address] [facility] [id number] [place] [address]- 0473 Jun, [facility] [address] [id number] [place] [address]- 8725 Mar, [facility] [address] [id number] [place] [address]- 0188 Mar, [facility] [address] [facility] [id number] [place] [address]- 0713 Feb, [facility] [address] [facility] [id number] [place] [address]- 2149 Feb, [facility] [address] [facility] [id number], [place] [address]- 3532 Feb, [facility] [address] [facility] [id number], [place] [address]- 3305 Feb, [facility] [address] [facility] [id number], [place] [address]- 6061 Feb, [facility] [address] [facility] [id number], [place] [address]- 9050 Feb, [facility] [address] [facility] [id number], [place] [address]- [address] Feb, [facility] [address] [facility] [id number], [place] [address]- 5540 Feb, [facility] [address] [facility] [id number], [place] [address]- 0848 Feb, [facility] [address] [facility] [id number], [place] [address]- 7753 Feb, IMMUNIZATIONS No Known Immunizations SOCIAL HISTORY Never Assessed REASON FOR VISIT f/u PLAN OF CARE Activity Details Follow Up Next available Reason:anxiety & depression VITAL SIGNS MEDICATIONS Unknown Medications RESULTS No Results PROCEDURES Procedure Date Ordered Result Body Site Psychotherapy, patient &/family, 45 minutes, established patient March 22, 2018 INSTRUCTIONS MEDICATIONS ADMINISTERED No Known Medications MEDICAL (GENERAL) HISTORY Type Description Date Medical History bipolar disorder Medical History PTSD Medical History ICD Medical History ADHD Medical History Cervical Cancer Surgical History tubal ligation 2009 Surgical History lipoma removal from back Surgical History hysterectomy, laparoscopically assisted partial 03/07/2016 Hospitalization History Surgery(s)/Childbirth(s) only Hospitalization History inpatient 96 hour hold for SI at [facility] unit 2013?
--- OUTSIDE RECORDS SUMMARY | 2018-06-23 21:50 | XMS REPORT ---
Author Author DEBORAELIZABETH Organization [facility] Address [address] [place] [address] Care Team Providers Care Hassock Maker Name Role Phone ROSITAELIZABETH AKERS Unavailable PROBLEMS Type Condition ICD9-CM Code LBK92-EV Code Onset Dates Condition Status SNOMED Code Problem Dyspareunia N94.1 Active 76837302 Problem Migraine with aura and without status migrainosus, not intractable G43.109 Active 6157511 Problem H/O galactorrhea Z87.59 Active 384966645 Problem Bipolar affective disorder F31.9 Active 22690047 Problem Migraine headache G43.909 Active 46679202 Problem Migraine with aura and with status migrainosus, not intractable G43.101 Active 3102162 Problem Intractable migraine with aura without status migrainosus G43.119 Active 456338096 Problem PTSD (post-traumatic stress disorder) F43.10 Active 43589161 Problem Migraine without aura and without status migrainosus, not intractable G43.009 Active 995011100 Problem Acute stress disorder F43.0 Active 95743739 Problem Bipolar disorder, current episode mixed, mild F31.61 Active 437905371 ALLERGIES No Information ENCOUNTERS Encounter Location Date Diagnosis [facility] [id number], [place] [address] May, [facility] [id number], [place] [address]- 4927 May, [facility] [address] [place] [address] 33421- 7327 May, [facility] [id number], [place] [address]- 1320 Apr, [facility] [id number], [place] [address]- 2195 Apr, PTSD (post-traumatic stress disorder) F43.10 and Bipolar disorder, current episode mixed, mild F31.61 [place] [id number] [place] [address] 06940- 2009 Mar, Acute left ankle pain M25.572 [place] [id number] [place] [address] 34629- 1734 Feb, PTSD (post-traumatic stress disorder) F43.10 and Bipolar disorder, current episode mixed, mild F31.61 [place] [id number] [place] [address] 34840- 0970 Feb, PTSD (post-traumatic stress disorder) F43.10 and Bipolar disorder, current episode mixed, mild F31.61 [place] [id number] [place] [address] 77997- 4355 Feb, Migraine with aura and with status migrainosus, not intractable G43.101 [place] [id number] [place] [address] 82868- 1525 Feb, Bipolar disorder, current episode mixed, mild F31.61 and PTSD (post-traumatic stress disorder) F43.10 [place] [id number] [place] [address] 21505- 7075 Feb, PTSD (post-traumatic stress disorder) F43.10 and Bipolar disorder, current episode mixed, mild F31.61 [place] [address] [place] [address] 45070- 3538 Jan, [place] [id number] [place] [address] 32098- 7125 Jan, [place] [id number] [place] [address] 54699- 2455 Jan, Bipolar disorder, current episode mixed, mild F31.61 and PTSD (post-traumatic stress disorder) F43.10 [place] [address] [place] [address] 27872- 8597 Sep, Intractable migraine with aura without status migrainosus G43.119 [place] [id number], [place] [address]- 8738 Aug, [place] [id number] [place] [address] 57841- 760 Aug, Bipolar disorder, current episode mixed, mild F31.61 ; PTSD (post-traumatic stress disorder) F43.10 and Acute stress disorder F43.0 [place] [id number] [place] [address] 91480- 7366 Aug, [place] [id number] [place] [address] 90632- 7899 Aug, [place] [id number] [place] [address] 81025- 6703 Aug, PTSD (post-traumatic stress disorder) F43.10 and Bipolar disorder, current episode mixed, mild F31.61 [place] [address] [place] [address] 99459- 9476 Jun, PTSD (post-traumatic stress disorder) F43.10 ; Bipolar disorder, current episode mixed, mild F31.61 and High risk medication use Z79.899 [place] [id number] [place] [address] 70956- 5098 08 Apr, 2017 Migraine without aura and without status migrainosus, not intractable G43.009 and Gum abscess K05.219 [place] [address] [place] [address] 04812- 5231 05 Apr, 2017 [facility] [address] [place] [address] Mar, Dental examination Z01.20 [facility] [address] [place] [address] Oct, Dental examination Z01.20 [facility] [address] [place] [address] [id number] Oct, Dental examination Z01.20 [facility] [id number] [id number] Sep, Dental caries K02.9 [facility] [address] [place] [address] [id number] Aug, Dental examination Z01.20 [facility] [id number] [place] [address] 02362 2546 Jun, Migraine with aura and without status migrainosus, not intractable G43.109 [facility] [id number] [place] [address] [id number] Jan, Dental caries K02.9 [facility] [id number] [place] [address] [phone] December, Dental examination Z01.20 [facility] [id number] [place] [address] [id number] Oct, Dental examination Z01.20 and Caries K02.9 [facility] [id number] [place] [address] 43567 2546 Oct, [facility] [id number] [place] [address] [phone] Sep, Dental caries K02.9 [facility] [id number] [place] [address] 74627- 7836 Sep, [facility] [address] [place] [address] [phone]- 1328 Sep, [facility] [address] [place] [address] 21353- 5336 Sep, Well woman exam Z01.419 ; Encounter [...] infection A59.01 and History of migraine Z86.69 [facility] [address] [place] [address] 40798- 5656 16 Sep, 2015 Bronchitis J40 [facility] [address] [id number] Sep, 2015 Dental examination Z01.20 [facility] [address] [address] -[address]16 09 Aug, 2015 Migraine G43.909 [place] [address] 59878- 7188 Jul, Trichomonas infection A59.9 [place] [address] 79023- 8851 Jul, Herpes simplex B00.9 ; Vaginal burning N94.9 and Vaginal discharge N89.8 [facility] [address] 09050- 8883 09 Jul, 2015 Migraine without aura and without status migrainosus, not intractable G43.009 [place] [id number] [place] [address] 84430- 0399 10 Jun, 2015 Bipolar affective disorder F31.9 [place] [address] 34630- 2737 02 Jun, 2015 Intractable migraine without aura and with status migrainosus G43.011 [place] [address] 29845- 4953 May, Migraine headache G43.909 [place] [address] 31656- 0342 02 Apr, 2015 Candidal vaginitis 112.1 and Vaginitis 616.10 [place] [address] 52541- 7459 Nov, [facility] [address] [id number] [place] [address]- 4389 Nov, [facility] [address] [id number] [place] [address]- 7692 Jun, [facility] [address] [facility] [id number] [place] [address]- 9818 Jun, [facility] [address] [id number] [place] [address]- 6711 Mar, [facility] [address] [id number] [place] [address]- 4709 Mar, [facility] [address] [id number] [place] [address]- 5935 Feb, [facility] [address] [facility] [id number] [place] [address]- 8943 Feb, [facility] [address] [id number] [place] [address]- 4754 Feb, [facility] [address] [id number] [place] [address]- 6768 Feb, [facility] [address] [facility] [id number] [place] [address]- 7075 Feb, [facility] [address] [id number], [place] [address]- 5834 Feb, [facility] [address] [id number], [place] [address]- 1616 Feb, [facility] [address] [id number], [place] [address]- 5462 Feb, [facility] [address] [facility] [id number], [place] [address]- 3871 Feb, [facility] [address] [facility] [id number] [address]- 1657 Feb, IMMUNIZATIONS No Known Immunizations SOCIAL HISTORY Never Assessed REASON FOR VISIT f/uMejia HERRING PLAN OF CARE Activity Details Follow Up as previously scheduled Reason: VITAL SIGNS Height 66 in 2018-03-27 Weight 136.6 lbs 2018-03-27 Heart Rate 120 bpm 2018-03-27 Respiratory Rate 20 2018-03-27 BMI 22.05 kg/m2 2018-03-27 Blood pressure systolic 118 mmHg 2018-03-27 Blood pressure diastolic 74 mmHg 2018-03-27 MEDICATIONS Medication Instructions Dosage Frequency Start Date End Date Duration Status Rsanrltsrj-OYSI-Wtccyzqz 50-325-40 MG TAKE ONE TABLET BY MOUTH EVERY 4 HOURS NEEDED 10 Active Seroquel 25 MG Orally four times a day 1 tablet 6h Jun, Active Imitrex 100 mg Orally Once a day 1 tablet as needed 24h Feb, Active Clonazepam 0.5 MG Orally Once a day as needed 1 tablet Aug, Active Seroquel 200 MG Orally every bedtime 0.5 tablet Jun, Active Prozac 10 MG Orally Once a day 1 capsule 24h Feb, 30 day(s) Active HydrOXYzine HCl 50 MG Orally TID PRN 0.5-2 tabs Active Lamotrigine 25 MG Orally daily 1 [...] inpatient 96 hour hold [facility] SI [facility] [place]
--- OUTSIDE RECORDS SUMMARY | 2018-06-23 21:51 | XMS REPORT ---
Author Author MARK BURKS Organization [facility] Address [address] [place] [address] Care Team Providers Care Respiratory Supervisor Name Role Phone LUKE BURKSWIN Unavailable PROBLEMS Type Condition ICD9-CM Code FAF18-SV Code Onset Dates Condition Status SNOMED Code Problem Dyspareunia N94.1 Active 80305360 Problem Migraine with aura and without status migrainosus, not intractable G43.109 Active 4373321 Problem H/O galactorrhea Z87.59 Active 934894677 Problem Bipolar affective disorder F31.9 Active 53529367 Problem Migraine headache G43.909 Active 72327132 Problem Migraine with aura and with status migrainosus, not intractable G43.101 Active 2408514 Problem Intractable migraine with aura without status migrainosus G43.119 Active 507769073 Problem PTSD (post-traumatic stress disorder) F43.10 Active 22787621 Problem Migraine without aura and without status migrainosus, not intractable G43.009 Active 356226531 Problem Acute stress disorder F43.0 Active 26777103 Problem Bipolar disorder, current episode mixed, mild F31.61 Active [id number] ALLERGIES No Information ENCOUNTERS Encounter Location Date Diagnosis [place] [id number] [place] [address] 66805- 5631 May, [facility] [id number] [place] [address] 51486- 2189 Apr, [facility] [id number] [place] [address] 57328- 3430 Mar, Acute left ankle pain M25.572 [facility] [address] [place] [address] 47282- 4838 Feb, PTSD (post-traumatic stress disorder) F43.10 and Bipolar disorder, current episode mixed, mild F31.61 [place] [address] [address] 2[address] Feb, PTSD (post-traumatic stress disorder) F43.10 and Bipolar disorder, current episode mixed, mild F31.61 [place] [id number] [place] [address] 72571- 3797 Feb, Migraine with aura and with status migrainosus, not intractable G43.101 [place] [address] [id number] [place] [address] 37636- 9430 Feb, Bipolar disorder, current episode mixed, mild F31.61 and PTSD (post-traumatic stress disorder) F43.10 [place] [address] [id number] [place] [address] 87031- 8588 Feb, PTSD (post-traumatic stress disorder) F43.10 and Bipolar disorder, current episode mixed, mild F31.61 [place] [id number] [place] [address] 74610- 0906 Jan, [place] [id number] [place] [address] 99093- 5600 Jan, [place] [id number] [place] [address] 41077- 9502 Jan, Bipolar disorder, current episode mixed, mild F31.61 and PTSD (post-traumatic stress disorder) F43.10 [place] [address] [address] [id number] [place] [address] 88424- 3493 Sep, Intractable migraine with aura without status migrainosus G43.119 [place] [address] [place] [address] 35344- 8118 Aug, [place] [address] [id number] [place] [address] 68184- 3986 Aug, Bipolar disorder, current episode mixed, mild F31.61 ; PTSD (post-traumatic stress disorder) F43.10 and Acute stress disorder F43.0 [place] [address] [id number] [place] [address] [phone]- 4589 Aug, [address] [place] [address] 51918- 0303 Aug, [place] [id number] [place] [address] 7244 Aug, PTSD (post-traumatic stress disorder) F43.10 and Bipolar disorder, current episode mixed, mild F31.61 [place] [id number] [place] [address] 47028- 3806 Jun, PTSD (post-traumatic stress disorder) F43.10 ; Bipolar disorder, current episode mixed, mild F31.61 and High risk medication use Z79.899 [place] [id number] [place] [address] 06831- 4941 Apr, Migraine without aura and without status migrainosus, not intractable G43.009 and Gum abscess K05.219 [place] [id number] [place] [address] 46214- 6697 Apr, [address] [address] Mar, Dental examination Z01.[address] [address] Oct, Dental examination Z01.20 [facility] [id number] [place] [address] [id number] Oct, Dental examination Z01.20 [facility] [id number] [place] [address] [id number] Sep, Dental caries K02.9 [facility] [id number] [place] [address] [id number] Aug, Dental examination Z01.20 [place] [id number] [place] [address] 123744- 7803 Jun, Migraine with aura and without status migrainosus, not intractable G43.109 [facility] [address] [id number] Jan, Dental caries K02.9 [facility] [address] [place] [address] [id number] December, Dental examination Z01.20 [facility] [id number] [place] [address] [id number] Oct, Dental examination Z01.20 and Caries K02.9 [facility] [address] [address]46 Oct, [facility] [address] [id number] Sep, Dental caries K02.9 [facility] [address] 39680- 9006 Sep, [facility] [address] 15919059- 7406 Sep, [facility] [address] 18832- 4399 Sep, Well woman exam Z01.419 ; Encounter [...] A59.01 and History of migraine Z86.69 [facility] [id number] [place] [address] 18850- 3691 16 Sep, 2015 Bronchitis J40 [facility] [id number] [place] [address] [id number] 04 Sep, 2015 Dental examination Z01.20 [facility] [address] [place] [address] 80807 -6492 Aug, Migraine G43.909 [facility] [id number] [place] [address] 93663- 5402 Jul, Trichomonas infection A59.9 [facility] [address] [address] [id number] [place] [address] 49325- 7735 Jul, Herpes simplex B00.9 ; Vaginal burning N94.9 and Vaginal discharge N89.8 [place] [address] [address] [id number] [place] [address] 04514- 8714 Jul, Migraine without aura and without status migrainosus, not intractable G43.009 [facility] [address] [address] [id number] [place] [address] 03658- 5994 Jun, Bipolar affective disorder F31.9 [place] [address] 43853- 9719 Jun, Intractable migraine without aura and with status migrainosus G43.011 [place] [address] [address] [id number] [place] [address] 02152- 7530 May, Migraine headache G43.909 [place] [address] [id number] [place] [address] 17390- 2065 Apr, Candidal vaginitis 112.1 and Vaginitis 616.10 [place] [address] [id number] [place] [address] 40288- 2156 Nov, [place] [address] [id number] [place] [address] 28992- 5638 Nov, [facility] [address] 78031- 8310 Jun, [facility] [address] [address] [id number] [place] [address] 82685- 4457 Jun, [facility] [address] 43187- 5779 Mar, [facility] [address] [facility] [id number], [place] [address]- 7207 Mar, [facility] [address] [facility] [id number], [place] [address]- 8507 Feb, [facility] [address] [facility] [id number], [place] [address]- 2317 Feb, [facility] [address] [facility] [id number], [place] [address]- 6608 Feb, [facility] [address] [facility] [id number], [place] [address]- 7589 Feb, [facility] [address] [facility] [id number], [place] [address]- 9625 Feb, [facility] [address] [facility] [id number], [place] [address]- 0394 Feb, [facility] [address] [facility] [id number], [place] [address]- 0307 Feb, [facility] [address] [facility] [id number], [place] [address]- 2329 Feb, [facility] [address] [facility] [id number], [place] [address]- 2498 Feb, [facility] [address] [facility] [id number], [place] [address]- 2055 Feb, IMMUNIZATIONS No Known Immunizations SOCIAL HISTORY Never Assessed REASON FOR VISIT intake PLAN OF CARE Activity Details Follow Up next available Reason:mood VITAL SIGNS MEDICATIONS Medication Instructions Dosage Frequency Start Date End Date Duration Status Minipress 2 MG Orally at HS 2 capsules Unknown Lamotrigine 25 MG Orally daily 1 tablet every day for 2 week then take 2 tablets every day 24h 30 days Active Vistaril 50 mg Orally 1 at HS 1 capsule Unknown Quetiapine Fumarate 100 mg Orally at HS 1 tablet Unknown Clonazepam 0.5 MG Orally Once a day as needed 1 tablet Aug, 30 days Active HydrOXYzine HCl 50 MG Orally TID PRN 0.5-2 tabs 30 days Active HydrOXYzine HCl 25 MG Orally TID PRN 4 tablets Unknown Prazosin HCl 1 MG Orally at bedtime for night terrors 5 capsules Aug, 30 days Active Seroquel 200 MG Orally every bedtime 1 tablet Jun, 30 days Active Seroquel 25 MG Orally four times a day 1 tablet 6h Jun, 30 days Active Qgzigarwsc-DLQC-Xmegwutj 50-325-40 MG Orally every 4 hrs 1 capsule as needed 4h Jun, Unknown BuSpar 15 MG Orally 3 times a day 1 tablet 8h Unknown Quetiapine Fumarate 25 MG Orally 4 times a day 1 tablet 6h Unknown Qywwiaruyi-XPZR-Dbzqgxgi 50-325-40 MG TAKE ONE TABLET BY MOUTH EVERY 4 HOURS NEEDED 10 Active Imitrex 100 mg Orally Once a day 1 tablet as needed 24h Jun, Unknown RESULTS No Results PROCEDURES Procedure Date Ordered Result Body Site Psych diagnostic evaluation, established patient March 01, 2018 INSTRUCTIONS MEDICATIONS ADMINISTERED No Known Medications MEDICAL (GENERAL) HISTORY Type Description Date Medical History bipolar disorder Medical History PTSD Medical History ICD Medical History ADHD Medical History Cervical Cancer Surgical History tubal ligation 2009 Surgical History lipoma removal from back Surgical History hysterectomy, laparoscopically assisted partial 03/07/2016 Hospitalization History Surgery(s)/Childbirth(s) only Hospitalization History inpatient 96 hour hold for SI at [facility] 2013?
--- OUTSIDE RECORDS SUMMARY | 2018-06-23 21:51 | XMS REPORT ---
Author Author DEBORAELIZABETH Organization [facility] Address [address] [place] [address] Care Team Providers Care Chief Scientist Name Role Phone ROSITAELIZABETH AKERS Unavailable PROBLEMS Type Condition ICD9-CM Code EVD62-JI Code Onset Dates Condition Status SNOMED Code Problem Dyspareunia N94.1 Active 56496769 Problem Migraine with aura and without status migrainosus, not intractable G43.109 Active 7259749 Problem H/O galactorrhea Z87.59 Active 245447409 Problem Bipolar affective disorder F31.9 Active 81709921 Problem Migraine headache G43.909 Active 72853086 Problem Migraine with aura and with status migrainosus, not intractable G43.101 Active 3673406 Problem Intractable migraine with aura without status migrainosus G43.119 Active 074471202 Problem PTSD (post-traumatic stress disorder) F43.10 Active 44899751 Problem Migraine without aura and without status migrainosus, not intractable G43.009 Active 146147263 Problem Acute stress disorder F43.0 Active 69722620 Problem Bipolar disorder, current episode mixed, mild F31.61 Active 238926775 ALLERGIES No Information ENCOUNTERS Encounter Location Date Diagnosis [facility] [address], [place] [address]- 2988 May, [facility] [address] [address]- 7184 May, [facility] [address] [place] [address] 14855- 8577 May, [facility] [address], [place] [address]- 4060 Apr, [facility] [address], [place] [address]- 9131 Apr, PTSD (post-traumatic stress disorder) F43.10 and Bipolar disorder, current episode mixed, mild F31.61 [place] [address] [place] [id number] [place] [address] 23423- 7679 Mar, Acute left ankle pain M25.572 [place] [address] [place] [id number] [place] [address] 51790- 7903 Feb, PTSD (post-traumatic stress disorder) F43.10 and Bipolar disorder, current episode mixed, mild F31.61 [place] [address] [place] [id number] [place] [address] 12270- 6932 Feb, PTSD (post-traumatic stress disorder) F43.10 and Bipolar disorder, current episode mixed, mild F31.61 [place] [address] [place] [id number] [place] [address] 64942- 2027 Feb, Migraine with aura and with status migrainosus, not intractable G43.101 [place] [address] [place] [id number] [place] [address] 27611- 0281 Feb, Bipolar disorder, current episode mixed, mild F31.61 and PTSD (post-traumatic stress disorder) F43.10 [place] [address] [place] [id number] [place] [address] 22609- 0691 Feb, PTSD (post-traumatic stress disorder) F43.10 and Bipolar disorder, current episode mixed, mild F31.61 [place] [address] [place] [address] 53331- 9705 Jan, [place] [address] [place] [address] 66651- 4548 Jan, [place] [address] [place] [id number] [place] [address] 76734- 8543 Jan, Bipolar disorder, current episode mixed, mild F31.61 and PTSD (post-traumatic stress disorder) F43.10 [place] [address] [place] [address] 86498- 9738 Sep, Intractable migraine with aura without status migrainosus G43.119 [place] [address], [place] [address]- 4858 Aug, [place] [address] [place] [id number] [place] [address] 69253- 104 Aug, Bipolar disorder, current episode mixed, mild F31.61 ; PTSD (post-traumatic stress disorder) F43.10 and Acute stress disorder F43.0 [place] [address] [place] [id number] [place] [address] 49917- 5646 Aug, [place] [address] [place] [id number] [place] [address] 06261- 7523 Aug, [place] [address] [place] [id number] [place] [address] 15840- 1498 Aug, PTSD (post-traumatic stress disorder) F43.10 and Bipolar disorder, current episode mixed, mild F31.61 [place] [address] [place] [address] 22868- 2386 Jun, PTSD (post-traumatic stress disorder) F43.10 ; Bipolar disorder, current episode mixed, mild F31.61 and High risk medication use Z79.899 [place] [address] [place] [id number] [place] [address] 03723- 4031 08 Apr, 2017 Migraine without aura and without status migrainosus, not intractable G43.009 and Gum abscess K05.219 [place] [address] [place] [address] 62466- 7720 05 Apr, 2017 [facility] [address] [place] [address] Mar, Dental examination Z01.20 [facility] [address] [place] [address] Oct, Dental examination Z01.20 [facility] [address] [place] [address] [id number] Oct, Dental examination Z01.20 [facility] [address] [place] [id number] [id number] Sep, Dental caries K02.9 [facility] [address] [place] [address] [id number] Aug, Dental examination Z01.20 [facility] [id number] [place] [address] 97957 2546 Jun, Migraine with aura and without status migrainosus, not intractable G43.109 [facility] [id number] [place] [address] [id number] Jan, Dental caries K02.9 [facility] [id number] [place] [address] [id number] December, Dental examination Z01.20 [facility] [id number] [place] [address] [id number] Oct, Dental examination Z01.20 and Caries K02.9 [facility] [id number] [place] [address] 39482 2546 Oct, [facility] [id number] [place] [address] [id number] Sep, Dental caries K02.9 [facility] [id number] [place] [address] 15632- 7026 Sep, [facility] [address] [place] [address] [id number]- 7947 Sep, [facility] [address] [place] [address] 75685- 4156 Sep, Well woman exam Z01.419 ; Encounter [...] migraine Z86.69 [facility] [address] [place] [address] 55863- 7662 16 Sep, 2015 Bronchitis J40 [facility] [address] [id number] 04 Sep, 2015 Dental examination Z01.20 [facility] [address] 75623 -5737 09 Aug, 2015 Migraine G43.909 [place] [address] 99384- 7452 Jul, Trichomonas infection A59.9 [place] [address] 90204- 7298 Jul, Herpes simplex B00.9 ; Vaginal burning N94.9 and Vaginal discharge N89.8 [facility] [address] 92551- 4787 09 Jul, 2015 Migraine without aura and without status migrainosus, not intractable G43.009 [place] [address] [place] [id number] [place] [address] 86148- 2094 10 Jun, 2015 Bipolar affective disorder F31.9 [place] [address] 74710- 2773 02 Jun, 2015 Intractable migraine without aura and with status migrainosus G43.011 [place] [address] 90332- 3139 May, Migraine headache G43.909 [place] [address] 81900- 1559 02 Apr, 2015 Candidal vaginitis 112.1 and Vaginitis 616.10 [place] [address] 27553- 0600 Nov, [facility] [address] [id number] [place] [address]- 1085 Nov, [facility] [address] [id number] [place] [address]- 2407 Jun, [facility] [address] [facility] [id number] [place] [address]- 8637 Jun, [facility] [address] [id number] [place] [address]- 4079 Mar, [facility] [address] [id number] [place] [address]- 4521 Mar, [facility] [address] [id number] [place] [address]- 2025 Feb, [facility] [address] [facility] [id number] [place] [address]- 9808 Feb, [facility] [address] [id number] [place] [address]- 3469 Feb, [facility] [address] [id number] [place] [address]- 9242 Feb, [facility] [address] [facility] [id number] [place] [address]- 2669 Feb, [facility] [address] [id number], [place] [address]- 3173 Feb, [facility] [address] [id number], [place] [address]- 3296 Feb, [facility] [address] [id number], [place] [address]- 8303 Feb, [facility] [address] [facility] [id number], [place] [address]- 6726 Feb, [facility] [address] [facility] [id number], [place] [address]- 1265 Feb, IMMUNIZATIONS No Known Immunizations SOCIAL HISTORY Never Assessed REASON FOR VISIT f/u JANELL-NIMA, contract PLAN OF CARE Activity Details Follow Up 6 Weeks Reason: VITAL SIGNS Height 66 in 2018-02-01 Weight 137.8 lbs 2018-02-01 Heart Rate 86 bpm 2018-02-01 Respiratory Rate 20 2018-02-01 BMI 22.24 kg/m2 2018-02-01 Blood pressure systolic 114 mmHg 2018-02-01 Blood pressure diastolic 72 mmHg 2018-02-01 MEDICATIONS Medication Instructions Dosage Frequency Start Date End Date Duration Status BuSpar 15 MG Orally 3 times a day 1 tablet 8h Not-Taking Vistaril 50 mg Orally 1 at HS 1 capsule Not-Taking Minipress 2 MG Orally at HS 2 capsules Not-Taking Quetiapine Fumarate 100 mg Orally at HS 1 tablet Not-Taking Mzvjgwngjb-VYFT-Sbzrwmzs 50-325-40 MG Orally every 4 hrs 1 capsule as needed 4h Jun, Not-Taking HydrOXYzine HCl 50 MG Orally TID PRN 0.5-2 tabs 30 days Active Prazosin HCl 1 MG Orally at bedtime for night terrors 5 capsules Aug, 30 days Active Imitrex 100 mg Orally Once a day 1 tablet as needed 24h Jun, Not-Taking Seroquel 25 MG Orally four times a day 1 tablet 6h Jun, 30 days Active Lamotrigine 25 MG Orally daily 1 tablet every day for 2 week then take 2 tablets every day 24h 30 days Active HydrOXYzine HCl 25 MG Orally TID PRN 4 tablets Not-Taking Quetiapine Fumarate 25 MG Orally 4 times a day 1 tablet 6h Not- Taking Seroquel 200 MG Orally every bedtime 1 tablet Jun, 30 days Active Clonazepam 0.5 MG Orally Once a day as needed 1 tablet Aug, 30 days Active RESULTS No Results PROCEDURES No Known [...] inpatient 96 hour hold for SI at [facility] 2013?
--- OUTSIDE RECORDS SUMMARY | 2018-06-23 21:51 | XMS REPORT ---
Author Author DEBORAJUDYA [facility] Address [address] [place] [address] Care Team Providers Care Help Desk Analyst Name Role Phone ROSITAJUDY AKERSA Unavailable PROBLEMS Type Condition ICD9-CM Code SSQ37-RE Code Onset Dates Condition Status SNOMED Code Problem Migraine headache G43.909 Active 31047629 Problem H/O galactorrhea Z87.59 Active 642800605 Problem Dyspareunia N94.1 Active 84791653 Problem Bipolar affective disorder F31.9 Active 82075529 Problem Intractable migraine with aura without status migrainosus G43.119 Active 912625611 Problem Acute stress disorder F43.0 Active 63356881 Problem Migraine without aura and without status migrainosus, not intractable G43.009 Active 492391969 Problem Migraine with aura and without status migrainosus, not intractable G43.109 Active 7588024 Problem Bipolar disorder, current episode mixed, mild F31.61 Active 753275798 Problem PTSD (post-traumatic stress disorder) F43.10 Active 24902289 ALLERGIES No Information ENCOUNTERS Encounter Location Date Diagnosis [place] [address] [place] [address] 78221- 2588 Feb, [facility] [address] [place] [address] 77136- 4621 Jan, [facility] [address] [id number] [place] [address] 12193- 8814 Jan, [facility] [address] [id number] [place] [address] 62181- 4018 Jan, [facility] [address] [place] [address] 75798- 9964 07 Jan, 2018 Bipolar disorder, current episode mixed, mild F31.61 and PTSD (post-traumatic stress disorder) F43.10 [facility] [address], [place] [address] Sep, Intractable migraine with aura without status migrainosus G43.119 [facility] [address], [place] [address] Aug, [facility] [address], [place] [address] 0696 Aug, Bipolar disorder, current episode mixed, mild F31.61 ; PTSD (post-traumatic stress disorder) F43.10 and Acute stress disorder F43.0 [facility] [address], [place] [address] 3[address] Aug, [facility] [address] [place] [address] 07701- 9362 Aug, [place] [address] [place] [id number] [place] [address] 37211- 2148 Aug, PTSD (post-traumatic stress disorder) F43.10 and Bipolar disorder, current episode mixed, mild F31.61 [facility] [address] [place] [address] 75472- 0063 Jun, PTSD (post-traumatic stress disorder) F43.10 ; Bipolar disorder, current episode mixed, mild F31.61 and High risk medication use Z79.899 [facility] [address], [place] [address] 08 Apr, 2017 Migraine without aura and without status migrainosus, not intractable G43.009 and Gum abscess K05.219 [facility] [address], [place] [address] 05 Apr, 2017 [facility] [place] [address] [id number] [place] [id number] Mar, Dental examination Z01.20 [facility] [place] [address] [id number] [place] [id number] Oct, Dental examination Z01.20 [facility] [address] [id number] Oct, Dental examination Z01.20 [facility] [address] [place] [address] [id number] [place] [address] [id number] Sep, Dental caries K02.9 [facility] [id number] [place] [address] [id number] Aug, Dental examination Z01.20 [facility] [id number] [place] [address] 84420- 2546 Jun, Migraine with aura and without status migrainosus, not intractable G43.109 [facility] [address] [id number] Jan, Dental caries K02.9 [facility] [address] [id number] [place] [address] [phone] December, Dental examination Z01.20 [facility] [address] [address] [id number] [place] [address] [id number] Oct, Dental examination Z01.20 and Caries K02.9 [facility] [address] [id number] [place] [address] 13878 2546 Oct, [facility] [id number] [place] [address] [phone] Sep, Dental caries K02.9 [facility] [address] [place] [address] 30577- 4946 Sep, [facility] [address] [id number] [place] [address] 94656- 4456 Sep, [facility] [address] [place] [address] 56821- 9596 Sep, Well woman exam Z01.419 ; Encounter [...] migraine Z86.69 [facility] [address] 75228- 6413 16 Sep, 2015 Bronchitis J40 [facility] [address] [id number] Sep, 2015 Dental examination Z01.20 [facility] [address] [address] 09 Aug, 2015 Migraine G43.909 [place] [address] 06099- 9501 Jul, Trichomonas infection A59.9 [place] [address] 70572- 8802 Jul, Herpes simplex B00.9 ; Vaginal burning N94.9 and Vaginal discharge N89.8 [place] [address] 78521- 8355 09 Jul, 2015 Migraine without aura and without status migrainosus, not intractable G43.009 [facility] [address] 96824- 0812 Jun, Bipolar affective disorder F31.9 [facility] [address] 44767- 8195 02 Jun, 2015 Intractable migraine without aura and with status migrainosus G43.011 [place] [address] 69030- 4768 May, Migraine headache G43.909 [facility] [address] [address]16- 9932 Apr, Candidal vaginitis 112.1 and Vaginitis 616.10 [facility] [address] [id number] [place] [address]- 2963 Nov, [facility] [address] [id number] [place] [address] Nov, [facility] [address] [facility] [id number] [place] [address]- 8134 Jun, [facility] [address] [id number] [place] [address]- 1507 Jun, [facility] [address] [facility] [id number] [place] [address], [place] [address]409 Mar, [facility] [address] [facility] [id number] [place] [address]- 0468 Mar, [facility] [address] [place] [id number] [place] [address]- 9399 Feb, [facility] [address] [id number] [place] [address]- 2303 Feb, [facility] [address] [place] [id number] [place] [address]- 9850 Feb, [facility] [address] [facility] [id number] [place] [address]- 8804 Feb, [facility] [address] [facility] [id number] [place] [address]- 3073 Feb, [facility] [address] [id number], [place] [address] 7610 Feb, [facility] [address] [facility] [id number] [place] 9000 Feb, [facility] [address] [facility] [id number] [place] 5317 Feb, [facility] [address] [facility] [id number] [address] Feb, [facility] [address] [facility] [id number] [place] [address] [address]10 Feb, IMMUNIZATIONS No Known Immunizations SOCIAL HISTORY Never Assessed REASON FOR VISIT rocael/Mando [facility] PLAN OF CARE Activity Details Follow Up 3 Months Reason: VITAL SIGNS Height 66 in 2017-08-30 Weight 131.7 lbs 2017-08-30 Heart Rate 76 bpm 2017-08-30 Respiratory Rate 18 2017-08-30 BMI 21.25 kg/m2 2017-08-30 Blood pressure systolic 106 mmHg 2017-08-30 Blood pressure diastolic 72 mmHg 2017-08-30 MEDICATIONS Medication Instructions Dosage Frequency Start Date End Date Duration Status Quetiapine Fumarate 100 mg Orally at HS 1 tablet Not-Taking Seroquel 100 MG Orally every bedtime 1 tablet Jun, 30 days Active BuSpar 15 MG Orally 3 times a day 1 tablet 8h Not-Taking Quetiapine Fumarate 25 MG Orally 4 times a day 1 tablet 6h Not- Taking Seroquel 25 MG Orally four times a day 1 tablet 6h Jun, 30 days Active Kqwquznfca-VFWM-Cuowvwki 50-325-40 MG Orally every 4 hrs 1 capsule as needed 4h Jun, Active Clonazepam 0.5 MG Orally Once a day 1 tablet at bedtime 24h Aug, 30 days Active Prazosin HCl 1 MG Orally bedtime 1 capsule at bedtime for five nights, then take 2 caps for five nights, then take 3 every night Jun, 30 days Active Lamotrigine 25 MG Orally Twice a day 1 tablet 12h 30 days Active Vistaril 50 mg Orally 1 at HS 1 capsule Not-Taking Imitrex 100 MG Orally Once a day 1 tablet as needed 24h Jun, Active Minipress 2 MG Orally at HS 2 capsules Not-Taking HydrOXYzine HCl 25 MG Orally three times a day as needed for anxiety 1-2 tablets Jun, Active Prazosin HCl 1 MG Orally at bedtime for night terrors 4 capsules Aug, 30 day(s) Active RESULTS No Results PROCEDURES [...]
--- OUTSIDE RECORDS SUMMARY | 2018-06-23 21:51 | XMS REPORT ---
Author Author DEVANG XIONG Organization [facility] Address [address] [place] [address] Care Team Providers Care Supervisor Lead Refinery Name Role Phone DEVANG XIONG Unavailable PROBLEMS Type Condition ICD9-CM Code DRT46-UA Code Onset Dates Condition Status SNOMED Code Problem Dyspareunia N94.1 Active 11479922 Problem Migraine with aura and without status migrainosus, not intractable G43.109 Active 2066807 Problem H/O galactorrhea Z87.59 Active 541221359 Problem Bipolar affective disorder F31.9 Active 36417663 Problem Migraine headache G43.909 Active 02368696 Problem Migraine with aura and with status migrainosus, not intractable G43.101 Active 9249007 Problem Intractable migraine with aura without status migrainosus G43.119 Active 245180638 Problem PTSD (post-traumatic stress disorder) F43.10 Active 16927422 Problem Migraine without aura and without status migrainosus, not intractable G43.009 Active 844041796 Problem Acute stress disorder F43.0 Active 96091172 Problem Bipolar disorder, current episode mixed, mild F31.61 Active 575515716 ALLERGIES No Information ENCOUNTERS Encounter Location Date Diagnosis [place] [address] [place] [address] 74881- 1991 May, [place] [address] [place] [id number] [place] [address] 15584- 0569 Apr, [place] [address] [place] [id number] [place] [address] 94366- 5150 Mar, Acute left ankle pain M25.572 [place] [address] [place] [address] 16960- 8719 Feb, PTSD (post-traumatic stress disorder) F43.10 and Bipolar disorder, current episode mixed, mild F31.61 [place] [address], [place] [address]- 7438 Feb, PTSD (post-traumatic stress disorder) F43.10 and Bipolar disorder, current episode mixed, mild F31.61 [facility] [address] [place] [id number] [place] [address] 48933- 3609 Feb, Migraine with aura and with status migrainosus, not intractable G43.101 [place] [address] [place] [id number] [place] [address] 33961- 1148 Feb, Bipolar disorder, current episode mixed, mild F31.61 and PTSD (post-traumatic stress disorder) F43.10 [place] [address] [place] [id number] [place] [address] 71410- 7958 Feb, PTSD (post-traumatic stress disorder) F43.10 and Bipolar disorder, current episode mixed, mild F31.61 [place] [address] [place] [id number] [place] [address] 64383- 6986 Jan, [place] [address] [place] [id number] [place] [address] 04500- 8988 Jan, [place] [address] [place] [id number] [place] [address] 88144- 2121 Jan, Bipolar disorder, current episode mixed, mild F31.61 and PTSD (post-traumatic stress disorder) F43.10 [place] [address] [place] [id number] [place] [address] 49103- 4204 Sep, Intractable migraine with aura without status migrainosus G43.119 [place] [address] [place] [id number] [place] [address] 90397- 2495 Aug, [place] [address] [place] [id number] [place] [address] 25113- 6449 Aug, Bipolar disorder, current episode mixed, mild F31.61 ; PTSD (post-traumatic stress disorder) F43.10 and Acute stress disorder F43.0 [place] [address] [place] [id number] [place] [address] 300292- 8053 Aug, [place] [address] [place] [address] 80332- 8508 Aug, [place] [id number] [place] [address] 111615- 6697 Aug, PTSD (post-traumatic stress disorder) F43.10 and Bipolar disorder, current episode mixed, mild F31.61 [place] [id number] [place] [address] 227842- 4345 Jun, PTSD (post-traumatic stress disorder) F43.10 ; Bipolar disorder, current episode mixed, mild F31.61 and High risk medication use Z79.899 [place] [id number] [place] [address] 926176- 5904 Apr, Migraine without aura and without status migrainosus, not intractable G43.009 and Gum abscess K05.219 [place] [id number] [place] [address] 65493- 6586 Apr, [address] [address] Mar, Dental examination Z01.[address] [address] Oct, Dental examination Z01.20 [facility] [address] [id number] [place] [address] [id number] Oct, Dental examination Z01.20 [facility] [address] [place] [id number] [place] [address] [id number] Sep, Dental caries K02.9 [facility] [id number] [place] [address] [id number] Aug, Dental examination Z01.20 [place] [id number] [place] [address] 44529- 9906 Jun, Migraine with aura and without status migrainosus, not intractable G43.109 [facility] [address] [id number] Jan, Dental caries K02.9 [facility] [address] [id number] December, Dental examination Z01.20 [facility] [address] [place] [address] [id number] Oct, Dental examination Z01.20 and Caries K02.9 [facility] [address] [place] [id number] [place] [address] 67709 2546 Oct, [facility] [address] [id number] [place] [address] [id number] Sep, Dental caries K02.9 [place] [address] 6[address]- 0376 Sep, [facility] [address] [place] [id number] [place] [address] 43038580- 0459 Sep, [facility] [address] [place] [id number] [place] [address] 61924- 5259 Sep, Well woman exam Z01.419 ; Encounter [...] Z86.69 [facility] [address] [place] [id number] [place] [address] 78717- 1138 16 Sep, 2015 Bronchitis J40 [facility] [address] [place] [address] [id number] 04 Sep, 2015 Dental examination Z01.20 [facility] [address], [place] [address] Aug, Migraine G43.909 [facility] [address] [place] [id number] [place] [address] 77522- 7797 Jul, Trichomonas infection A59.9 [facility] [address] [place] [id number] [place] [address] 73595- 7177 Jul, Herpes simplex B00.9 ; Vaginal burning N94.9 and Vaginal discharge N89.8 [place] [address] [place] [id number] [place] [address] 99757- 6878 Jul, Migraine without aura and without status migrainosus, not intractable G43.009 [place] [address] [place] [id number] [place] [address] 22450- 7797 Jun, Bipolar affective disorder F31.9 [place] [address] 36583- 5803 Jun, Intractable migraine without aura and with status migrainosus G43.011 [place] [address] [place] [id number] [place] [address] 93536- 0205 May, Migraine headache G43.909 [place] [address] [place] [id number] [place] [address] 58602- 8718 Apr, Candidal vaginitis 112.1 and Vaginitis 616.10 [place] [address] [place] [id number] [place] [address] 84404- 5036 Nov, [place] [address] [place] [id number] [place] [address] 99700- 7885 Nov, [place] [address] 28835- 5342 Jun, [place] [address] [place] [id number] [place] [address] 34703- 7675 Jun, [facility] [address] 10665- 2019 Mar, [facility] [address] [id number] [address]- 0931 Mar, [facility] [address] [id number], [place] [address]- 3815 Feb, [facility] [address] [facility] [id number][place] [address]- 3732 Feb, [facility] [address] [id number], [place] [address]- 2227 Feb, [facility] [address] [id number], [place] [address]- 4252 Feb, [facility] [address] [facility] [id number], [place] [address]- 8635 Feb, [facility] [address] [id number][place] [address]- 0339 Feb, [facility] [address] [facility] [id number], [place] [address]- 2979 Feb, [facility] [address] [id number], [place] [address]- 0661 Feb, [facility] [address] [facility] [id number][place] [address]- 9392 Feb, [facility] [address] [facility] [id number], [place] [address]- 7794 Feb, IMMUNIZATIONS No Known Immunizations SOCIAL HISTORY Never Assessed REASON FOR VISIT Controlled refill PLAN OF CARE VITAL SIGNS MEDICATIONS Unknown Medications RESULTS No Results PROCEDURES No Known procedures [...] inpatient 96 hour hold for SI at [facility] 2013?
--- OUTSIDE RECORDS SUMMARY | 2018-06-23 21:51 | XMS REPORT ---
Author Author DEBORAJUDYA Organization [facility] Address [address] [place] [address] Care Team Providers Care Recruiting Coordinator Name Role Phone ROSITAELIZABETH AKERS Unavailable PROBLEMS Type Condition ICD9-CM Code [id number] Code Onset Dates Condition Status SNOMED Code Problem Dyspareunia N94.1 Active 91395744 Problem Migraine with aura and without status migrainosus, not intractable G43.109 Active 7899072 Problem H/O galactorrhea Z87.59 Active 618476674 Problem Bipolar affective disorder F31.9 Active 04551461 Problem Migraine headache G43.909 Active 92867635 Problem Migraine with aura and with status migrainosus, not intractable G43.101 Active 2894315 Problem Intractable migraine with aura without status migrainosus G43.119 Active 284878978 Problem PTSD (post-traumatic stress disorder) F43.10 Active 91777979 Problem Migraine without aura and without status migrainosus, not intractable G43.009 Active 402453911 Problem Acute stress disorder F43.0 Active 53673066 Problem Bipolar disorder, current episode mixed, mild F31.61 Active 560766229 ALLERGIES No Information ENCOUNTERS Encounter Location Date Diagnosis [facility] [id number] [place] [address] 58078- 3381 May, [facility] [address] [place] [address] 90616- 1306 Apr, [facility] [address] [place] [address] 33648- 1449 Mar, Acute left ankle pain M25.572 [facility] [id number] [place] [address] 79130- 0093 Feb, PTSD (post-traumatic stress disorder) F43.10 and Bipolar disorder, current episode mixed, mild F31.61 [facility] [address] [address]- 5[address] Feb, PTSD (post-traumatic stress disorder) F43.10 and Bipolar disorder, current episode mixed, mild F31.61 [facility] [id number] [place] [address] 90906- 0836 Feb, Migraine with aura and with status migrainosus, not intractable G43.101 [place] [id number] [place] [address] 99756- 5608 Feb, Bipolar disorder, current episode mixed, mild F31.61 and PTSD (post-traumatic stress disorder) F43.10 [place] [id number] [place] [address] 29269- 8756 Feb, PTSD (post-traumatic stress disorder) F43.10 and Bipolar disorder, current episode mixed, mild F31.61 [place] [id number] [place] [address] 10795- 8591 Jan, [place] [id number] [place] [address] 08611- 2088 Jan, [place] [id number] [place] [address] 15747- 838 Jan, Bipolar disorder, current episode mixed, mild F31.61 and PTSD (post-traumatic stress disorder) F43.10 [place] [address] [place] [address] 81805- 9515 Sep, Intractable migraine with aura without status migrainosus G43.119 [facility] [id number] [place] [address] 05530- 2766 Aug, [facility] [id number] [place] [address] Aug, Bipolar disorder, current episode mixed, mild F31.61 ; PTSD (post-traumatic stress disorder) F43.10 and Acute stress disorder F43.0 [place] [address] [place] [address]- 6546 Aug, [place] [id number] [place] [address] 17788- 7574 Aug, [place] [id number] [place] [address] 39853- 0280 Aug, PTSD (post-traumatic stress disorder) F43.10 and Bipolar disorder, current episode mixed, mild F31.61 [place] [id number] [place] [address] 45901- 2729 Jun, PTSD (post-traumatic stress disorder) F43.10 ; Bipolar disorder, current episode mixed, mild F31.61 and High risk medication use Z79.899 [place] [id number] [place] [address] 96487- 5441 Apr, Migraine without aura and without status migrainosus, not intractable G43.009 and Gum abscess K05.219 [place] [id number] [place] [address] 10702- 2549 Apr, [address] [address] Mar, Dental examination Z01.20 [facility] [address] [place] [address] Oct, Dental examination Z01.20 [facility] [id number] [place] [address] [id number] Oct, Dental examination Z01.20 [facility] [id number] [place] [address] [phone] Sep, Dental caries K02.9 [facility] [id number] [place] [address] [phone] Aug, Dental examination Z01.20 [place] [id number] [place] [address] 87239- 3950 Jun, Migraine with aura and without status migrainosus, not intractable G43.109 [facility] [address] [id number] Jan, Dental caries K02.9 [facility] [address] [place] [address] [phone] December, Dental examination Z01.20 [facility] [address] [place] [address] [id number] Oct, Dental examination Z01.20 and Caries K02.9 [facility] [address] [address] 2546 Oct, [facility] [id number] [place] [address] [phone] Sep, Dental caries K02.9 [place] [address] 60930- 4686 Sep, [facility] [id number] [place] [address] [phone]- 1294 Sep, [facility] [id number] [place] [address] [phone]- 7396 Sep, Well woman exam Z01.419 ; Encounter [...] infection A59.01 and History of migraine Z86.69 [facility] [id number] [place] [address] 39690- 5606 16 Sep, 2015 Bronchitis J40 [facility] [address] [place] [address] [id number] 04 Feb, 2016 Dental examination Z01.20 [facility] [address] [address] Aug, Migraine G43.909 [facility] [id number] [place] [address] 97431- 6308 Jul, Trichomonas infection A59.9 [facility] [id number] [place] [address] 88937- 8656 Jul, Herpes simplex B00.9 ; Vaginal burning N94.9 and Vaginal discharge N89.8 [facility] [address] [place] [address] 10089- 7448 Jul, Migraine without aura and without status migrainosus, not intractable G43.009 [facility] [id number] [place] [address] 62173- 4942 Jun, Bipolar affective disorder F31.9 [facility] [address] 19381- 0416 Jun, Intractable migraine without aura and with status migrainosus G43.011 [facility] [id number] [place] [address] 49983- 6953 May, Migraine headache G43.909 [facility] [id number] [place] [address] 05239- 6665 Apr, Candidal vaginitis 112.1 and Vaginitis 616.10 [facility] [id number] [place] [address] 74281- 0971 Nov, [facility] [id number] [place] [address] 44583- 6147 Nov, [facility] [id number] [place] [address] 05012- 3524 Jun, [facility] [id number] [place] [address] 48099- 1272 Jun, [facility] [address] 35548- 3325 Mar, [facility] [address] [facility] [id number] [address]- 2494 Mar, [facility] [address] [facility] [address] [facility] [id number], [place] [address]- 9925 Feb, [facility] [address] [facility] [address] [facility] [id number], [place] [address]- 7147 Feb, [facility] [address] [facility] [address] [facility] [id number], [place] [address]- 3859 Feb, [facility] [address], [place] [address]- 8154 Feb, [facility] [id number] [address]- 8319 Feb, [facility] [address], [place] [address]- 9781 Feb, [facility] [address] [address]- 6565 Feb, [facility] [id number], [place] [address]- 3350 Feb, [facility] [id number] [address]- 8558 Feb, [facility] [id number] [address]- 6789 Feb, IMMUNIZATIONS No Known Immunizations SOCIAL HISTORY Never Assessed REASON FOR VISIT Refill request PLAN OF CARE VITAL SIGNS MEDICATIONS Unknown [...] inpatient 96 hour hold for SI at [facility] 2013?
--- OUTSIDE RECORDS SUMMARY | 2018-06-23 21:52 | XMS REPORT ---
Author Author DEBORAJUDYA [facility] Address [address] [place] [address] Care Team Providers Care Claims Clerk Name Role Phone ROSITAJUDY AKERSA Unavailable PROBLEMS Type Condition ICD9-CM Code [id number] Code Onset Dates Condition Status SNOMED Code Problem Migraine headache G43.909 Active 05708117 Problem H/O galactorrhea Z87.59 Active 013754270 Problem Dyspareunia N94.1 Active 97850811 Problem Bipolar affective disorder F31.9 Active 39565620 Problem Intractable migraine with aura without status migrainosus G43.119 Active 248279204 Problem Acute stress disorder F43.0 Active 97299335 Problem Migraine without aura and without status migrainosus, not intractable G43.009 Active 571435781 Problem Migraine with aura and without status migrainosus, not intractable G43.109 Active 9882707 Problem Bipolar disorder, current episode mixed, mild F31.61 Active 491318967 Problem PTSD (post-traumatic stress disorder) F43.10 Active 02068496 ALLERGIES No Information ENCOUNTERS Encounter Location Date Diagnosis [place] [address] [place] [address] 22939- 6843 Feb, [facility] [address] [place] [address] 61947- 4450 Jan, [facility] [id number] [place] [address] 28819- 7150 Jan, [facility] [id number] [place] [address] 29456- 8345 Jan, [facility] [address] [place] [address] 82809- 1620 07 Jan, 2018 Bipolar disorder, current episode mixed, mild F31.61 and PTSD (post-traumatic stress disorder) F43.10 [facility] [address], [place] [address]- 2646 Sep, Intractable migraine with aura without status migrainosus G43.119 [facility] [address] [address]- 3870 Aug, [facility] [address] [address]- 4286 Aug, Bipolar disorder, current episode mixed, mild F31.61 ; PTSD (post-traumatic stress disorder) F43.10 and Acute stress disorder F43.0 [facility] [address], [place] [address]- 0977 Aug, [facility] [address] [place] [address] 15137- 6896 Aug, [place] [id number] [place] [address] 91880- 2953 Aug, PTSD (post-traumatic stress disorder) F43.10 and Bipolar disorder, current episode mixed, mild F31.61 [facility] [address] [place] [address] 32988- 6731 Jun, PTSD (post-traumatic stress disorder) F43.10 ; Bipolar disorder, current episode mixed, mild F31.61 and High risk medication use Z79.899 [facility] [address], [place] [address]- 0802 08 Apr, 2017 Migraine without aura and without status migrainosus, not intractable G43.009 and Gum abscess K05.219 [facility] [address], [place] [address]- 6760 05 Apr, 2017 [facility] [place] [address] [id number] [place] [id number] Mar, Dental examination Z01.20 [facility] [place] [address] [id number] [place] [id number] Oct, Dental examination Z01.20 [facility] [address] [id number] Oct, Dental examination Z01.20 [facility] [id number] [place] [address] [id number] Sep, Dental caries K02.9 [facility] [id number] [place] [address] [phone] Aug, Dental examination Z01.20 [facility] [id number] [place] [address] 36835- 2546 Jun, Migraine with aura and without status migrainosus, not intractable G43.109 [facility] [address] [id number] Jan, Dental caries K02.9 [facility] [id number] [place] [address] [phone] December, Dental examination Z01.20 [facility] [id number] [place] [address] [phone] Oct, Dental examination Z01.20 and Caries K02.9 [facility] [id number] [place] [address] 05415 2546 Oct, [facility] [id number] [place] [address] [id number] Sep, Dental caries K02.9 [facility] [address] [place] [address] 89428- 6696 Sep, [facility] [id number] [place] [address] 34051- 9166 Sep, [facility] [address] [place] [address] 30113- 1106 Sep, Well woman exam Z01.419 ; Encounter [...] infection A59.01 and History of migraine Z86.69 [facility] [address] 14130- 2196 16 Sep, 2015 Bronchitis J40 [facility] [address] [id number] 04 Sep, 2015 Dental examination Z01.20 [facility] [address] [address]47 -8319 09 Aug, 2015 Migraine G43.909 [place] [address] 96612- 4085 Jul, Trichomonas infection A59.9 [place] [address] 38413- 0145 Jul, Herpes simplex B00.9 ; Vaginal burning N94.9 and Vaginal discharge N89.8 [place] [address] 89660- 1103 09 Jul, 2015 Migraine without aura and without status migrainosus, not intractable G43.009 [facility] [address] 18668- 2315 Jun, Bipolar affective disorder F31.9 [facility] [address] 64426- 8504 02 Jun, 2015 Intractable migraine without aura and with status migrainosus G43.011 [place] [address] 35260- 5528 May, Migraine headache G43.909 [facility] [address] 89734- 6853 Apr, Candidal vaginitis 112.1 and Vaginitis 616.10 [facility] [address] [id number] [place] [address]- 1888 Nov, [facility] [address] [id number] [place] [address]38 Nov, [facility] [address] [facility] [id number] [place] [address]- 1130 Jun, [facility] [address] [id number] [place] [address]- 7462 Jun, [facility] [address] [facility] [id number] [place] [address], [place]- 7589 Mar, [facility] [address] [facility] [id number] [place] [address]- 2512 Mar, [facility] [id number] [place] [address]- 6093 Feb, [facility] [address] [id number] [place] [address]- 3891 Feb, [facility] [id number] [place] [address]- 4510 Feb, [facility] [address] [facility] [id number] [place] [address]- 1199 Feb, [facility] [address] [facility] [id number] [place] [address]- 6008 Feb, [facility] [address] [id number] [address]- 0525 Feb, [facility] [address] [facility] [id number] [place] 5717 Feb, [facility] [address] [facility] [id number] [place] 8524 Feb, [facility] [address] [facility] [id number] 8679 Feb, [facility] [address] [facility] [id number] [place] 1799 Feb, IMMUNIZATIONS No Known Immunizations SOCIAL HISTORY Never Assessed REASON FOR VISIT Refill request PLAN OF CARE VITAL SIGNS MEDICATIONS Medication Instructions Dosage Frequency Start Date End Date Duration Status HydrOXYzine HCl 25 MG Orally three times a day as needed for anxiety 1-2 tablets Jun, 30 days Active RESULTS No Results PROCEDURES [...]
--- OUTSIDE RECORDS SUMMARY | 2018-06-23 21:53 | XMS REPORT ---
Author Author DEBORAJUDYA [facility] Address [address] [place] [address] Care Team Providers Care Gis Professor Name Role Phone ROSITAJUDY AKERSA Unavailable PROBLEMS Type Condition ICD9-CM Code ELX49-RN Code Onset Dates Condition Status SNOMED Code Problem Migraine headache G43.909 Active 90222928 Problem H/O galactorrhea Z87.59 Active 149021508 Problem Dyspareunia N94.1 Active 80630064 Problem Bipolar affective disorder F31.9 Active 96124725 Problem Intractable migraine with aura without status migrainosus G43.119 Active 848965701 Problem Acute stress disorder F43.0 Active 85936365 Problem Migraine without aura and without status migrainosus, not intractable G43.009 Active 016186915 Problem Migraine with aura and without status migrainosus, not intractable G43.109 Active 9185120 Problem Bipolar disorder, current episode mixed, mild F31.61 Active 542367425 Problem PTSD (post-traumatic stress disorder) F43.10 Active 52639656 ALLERGIES No Information ENCOUNTERS Encounter Location Date Diagnosis [place] [id number] [place] [address] 23347- 3605 Feb, [facility] [address] [place] [address] 53389- 6060 Jan, [facility] [id number] [place] [address] 46066- 6880 Jan, [facility] [id number] [place] [address] 11367- 9581 Jan, [facility] [address] [place] [address] 13878- 2553 07 Jan, 2018 Bipolar disorder, current episode mixed, mild F31.61 and PTSD (post-traumatic stress disorder) F43.10 [facility] [address] [address] 20[address] Sep, Intractable migraine with aura without status migrainosus G43.119 [facility] [address] [address] 6873 Aug, [facility] [address] [address] 4702 Aug, Bipolar disorder, current episode mixed, mild F31.61 ; PTSD (post-traumatic stress disorder) F43.10 and Acute stress disorder F43.0 [facility] [address] [address] 8807 Aug, [facility] [address] [place] [address] 64277- 7539 Aug, [place] [id number] [place] [address] 35682- 0276 Aug, PTSD (post-traumatic stress disorder) F43.10 and Bipolar disorder, current episode mixed, mild F31.61 [facility] [address] [place] [address] 09825- 6957 Jun, PTSD (post-traumatic stress disorder) F43.10 ; Bipolar disorder, current episode mixed, mild F31.61 and High risk medication use Z79.899 [facility] [address] [address] 7[address] 08 Apr, 2017 Migraine without aura and without status migrainosus, not intractable G43.009 and Gum abscess K05.219 [facility] [address] [address] 7[address] 05 Apr, 2017 [facility] [place] [address] [id number] [place] [id number] Mar, Dental examination Z01.20 [facility] [place] [address] [id number] [place] [id number] Oct, Dental examination Z01.20 [facility] [address] [id number] Oct, Dental examination Z01.20 [facility] [address] [id number] [place] [address] [id number] Sep, Dental caries K02.9 [facility] [id number] [place] [address] [id number] Aug, Dental examination Z01.20 [facility] [id number] [place] [address] 44660- 2546 Jun, Migraine with aura and without status migrainosus, not intractable G43.109 [facility] [address] [id number] Jan, Dental caries K02.9 [facility] [id number] [place] [address] [id number] December, Dental examination Z01.20 [facility] [id number] [place] [address] [id number] Oct, Dental examination Z01.20 and Caries K02.9 [facility] [id number] [place] [address] 50664 2546 Oct, [facility] [id number] [place] [address] [id number] Sep, Dental caries K02.9 [facility] [address] [place] [address] 74158- 5076 Sep, [facility] [id number] [place] [address] 23820- 8636 Sep, [facility] [address] [place] [address] 21785- 8956 Sep, Well woman exam Z01.419 ; Encounter [...] infection A59.01 and History of migraine Z86.69 [facility] [address] [address]- 9084 16 Sep, 2015 Bronchitis J40 [facility] [address] [id number] 04 Sep, 2015 Dental examination Z01.20 [facility] [address] [address]90 -6907 09 Aug, 2015 Migraine G43.909 [place] [address] 8[address]00- 0069 Jul, Trichomonas infection A59.9 [place] [address] 05646- 5086 Jul, Herpes simplex B00.9 ; Vaginal burning N94.9 and Vaginal discharge N89.8 [place] [address] 25176- 7732 09 Jul, 2015 Migraine without aura and without status migrainosus, not intractable G43.009 [facility] [address] 6[address]38- 3475 Jun, Bipolar affective disorder F31.9 [facility] [address] 70093- 8740 02 Jun, 2015 Intractable migraine without aura and with status migrainosus G43.011 [place] [address] 24475- 5836 May, Migraine headache G43.909 [facility] [address] 16184- 9897 Apr, Candidal vaginitis 112.1 and Vaginitis 616.10 [facility] [address] [id number] [place] [address] 2352 Nov, [facility] [address] [id number] [place] [address] Nov, [facility] [address] [facility] [id number] [place] [address]- 0491 Jun, [facility] [address] [id number] [place] [address] 8596 Jun, [facility] [address] [facility] [id number] [place] [address], [place] 5822 Mar, [facility] [address] [facility] [id number] [place] [address]- 1797 Mar, [facility] [address] [place] [id number] [place] [address] 4946 Feb, [facility] [address] [id number] [place] [address]- 6372 Feb, [facility] [address] [place] [id number] [place] [address]- 7673 Feb, [facility] [address] [facility] [id number] [place] [address]- 8633 Feb, [facility] [address] [facility] [id number] [place] [address]- 4999 Feb, [facility] [address] [id number] [address] 0285 Feb, [facility] [address] [facility] [id number] [place] 6[address] Feb, [facility] [address] [facility] [id number] [place] 4316 Feb, [facility] [address] [facility] [id number] 5182 Feb, [facility] [address] [facility] [id number] [place] [address] Feb, IMMUNIZATIONS No Known Immunizations SOCIAL HISTORY Never Assessed REASON FOR VISIT update PLAN OF CARE VITAL SIGNS MEDICATIONS Unknown [...]
--- OUTSIDE RECORDS SUMMARY | 2018-06-23 21:53 | XMS REPORT ---
Author Author DEBORAJUDYA Organization [facility] Address [address] [place] [address] Care Team Providers Care Sales Representative [employer]ing Supp[employer] Name Role Phone ROSITAJUDY AKERSA Unavailable PROBLEMS Type Condition ICD9-CM Code IYM54-DD Code Onset Dates Condition Status SNOMED Code Problem Migraine headache G43.909 Active 58758247 Problem H/O galactorrhea Z87.59 Active 571410140 Problem Dyspareunia N94.1 Active 34142658 Problem Bipolar affective disorder F31.9 Active 71974354 Problem Intractable migraine with aura without status migrainosus G43.119 Active 302253751 Problem Acute stress disorder F43.0 Active 11041744 Problem Migraine without aura and without status migrainosus, not intractable G43.009 Active 866282949 Problem Migraine with aura and without status migrainosus, not intractable G43.109 Active 3852510 Problem Bipolar disorder, current episode mixed, mild F31.61 Active 061411321 Problem PTSD (post-traumatic stress disorder) F43.10 Active 24709481 ALLERGIES Substance Reaction Event Type Date Status Latex itching Drug Allergy Aug, Active SulfADIAZINE shortness of breath Drug Allergy Aug, Active Iodine itching Drug Allergy Aug, Active ENCOUNTERS Encounter Location Date Diagnosis [facility] [id number] [address] 5267 Feb, [facility] [id number], [place] [address]- 8737 Feb, [facility] [address], [place] [address]- 0968 Jan, [facility] [id number], [place] [address]- 1450 Jan, [facility] [address] [place] [address] 55207- 4426 Jan, [facility] [address] [place] [id number] [place] [address] 24261- 3086 Jan, Bipolar disorder, current episode mixed, mild F31.61 and PTSD (post-traumatic stress disorder) F43.10 [place] [address] [place] [address] 40398- 8036 Sep, Intractable migraine with aura without status migrainosus G43.119 [place] [address] [place] [id number] [place] [address] 20255- 9744 Aug, [place] [address] [place] [address] [id number] [place] [address] 140611- 2731 Aug, Bipolar disorder, current episode mixed, mild F31.61 ; PTSD (post-traumatic stress disorder) F43.10 and Acute stress disorder F43.0 [place] [address] [place] [id number] [place] [address] 14836- 9010 Aug, [place] [address] [place] [id number] [place] [address] 62952- 5001 Aug, [place] [address] [place] [id number] [place] [address] 06529- 8560 Aug, PTSD (post-traumatic stress disorder) F43.10 and Bipolar disorder, current episode mixed, mild F31.61 [place] [address] [place] [address] 49613- 6628 Jun, PTSD (post-traumatic stress disorder) F43.10 ; Bipolar disorder, current episode mixed, mild F31.61 and High risk medication use Z79.899 [place] [address] [place] [address] [id number] [place] [address] 15303- 5930 08 Apr, 2017 Migraine without aura and without status migrainosus, not intractable G43.009 and Gum abscess K05.219 [facility] [address] [place] [address] 46097- 4372 05 Apr, 2017 [facility] [place] [address] [id number] [place] [id number] Mar, Dental examination Z01.20 [facility] [place] [address] [id number] [place] [id number] Oct, Dental examination Z01.20 [facility] [address] [id number] [id number] Oct, Dental examination Z01.20 [facility] [address] [place] [id number] [place] [address] [id number] Sep, Dental caries K02.9 [facility] [address] [place] [id number] [place] [address] [id number] Aug, Dental examination Z01.20 [facility] [id number] [place] [address] 06355- 8856 Jun, Migraine with aura and without status migrainosus, not intractable G43.109 [facility] [id number] [place] [address] [id number] Jan, Dental caries K02.9 [facility] [id number] [place] [address] [id number] December, Dental examination Z01.20 [facility] [address] [place] [address] [id number] Oct, Dental examination Z01.20 and Caries K02.9 [facility] [address], [place] [address]- 1726 Oct, [facility] [address] [place] [address] [id number] Sep, Dental caries K02.9 [facility] [address] [place] [address] [id number]- 6884 Sep, [facility] [address] [place] [address] 26631214- 4520 Sep, [facility] [address] [place] [address] 26982126- 2857 22 Feb, 2016 Well woman exam Z01.419 ; Encounter [...] infection A59.01 and History of migraine Z86.69 [facility] [address] 20338- 1136 16 Sep, 2015 Bronchitis J40 [facility] [address] [id number] 04 Sep, 2016 Dental examination Z01.20 [facility] [address] 93320 -1714 09 Aug, 2015 Migraine G43.[address] 42375- 8308 16 Jul, 2015 Trichomonas infection A59.[address] 57421- 0256 16 Jul, 2015 Herpes simplex B00.9 ; Vaginal burning N94.9 and Vaginal discharge N89.8 [place] [address] 69846- 4210 09 Jul, 2015 Migraine without aura and without status migrainosus, not intractable G43.[address] 08807- 1617 10 Jun, 2015 Bipolar affective disorder F31.9 [facility] [address] [place] [address] 27821- 8848 02 Jun, 2015 Intractable migraine without aura and with status migrainosus G43.011 [facility] [id number], [place] [address]- 7406 May, Migraine headache G43.909 [facility] [address] [place] [address] 91171 2546 Apr, Candidal vaginitis 112.1 and Vaginitis 616.10 [facility] [address] [facility] [id number] [place] [address] 96312- 0626 Nov, [facility] [address] [facility] [id number] [place] [address] 53907- 7880 Nov, [facility] [id number] [place] [address] 48587- 2570 Jun, [facility] [id number] [place] [address] 98834- 4356 Jun, [facility] [id number] [place] [address] 31332- 0613 Mar, [facility] [address] [place] [address] 57340- 3180 Mar, [facility] [address] [place] [address] 43183- 4665 Feb, [facility] [address], [place] [address]- 2687 Feb, [facility] [address], [place] [address]- 0946 Feb, [facility] [id number], [place] [address]- 9935 Feb, [facility] [id number] [place] [address] 03356- 2548 Feb, [facility] [address] [facility] [id number], [place] [address]- 2543 Feb, [facility] [address] [place] [address] 19389- 8201 Feb, [facility] [address] [facility] [id number] [place] [address]- 5979 Feb, [facility] [address] [facility] [id number] [place] [address]- 7897 Feb, [facility] [address] [facility] [id number] [place] [address]- 0716 Feb, IMMUNIZATIONS No Known Immunizations SOCIAL HISTORY Never Assessed REASON FOR VISIT Psychiatric f/u PLAN OF CARE VITAL SIGNS Height 66 in 2017-09-13 Weight 132.3 lbs 2017-09-13 Heart Rate 72 bpm 2017-09-13 Respiratory Rate 20 2017-09-13 BMI 21.35 kg/m2 2017-09-13 MEDICATIONS Medication Instructions Dosage Frequency Start Date End Date Duration Status Prazosin HCl 1 MG Orally at bedtime for night terrors 5 capsules Aug, Active Seroquel 200 MG Orally every bedtime 1 tablet Jun, Active Lamotrigine 25 MG Orally Twice a day 1 tablet 12h Active Clonazepam 0.5 MG Orally Once a day 1 tablet at bedtime 24h Aug, Active Vistaril 50 mg Orally 1 at HS 1 capsule Not-Taking Imitrex 100 MG Orally Once a day 1 tablet as needed 24h Jun, Active Quetiapine Fumarate 100 mg Orally at HS 1 tablet Not-Taking Quetiapine Fumarate 25 MG Orally 4 times a day 1 tablet 6h Not- Taking Minipress 2 MG Orally at HS 2 capsules Not-Taking Vqxbfgrryw-DGAK-Zqeaewhm 50-325-40 MG Orally every 4 hrs 1 capsule as needed 4h Jun, Active Seroquel 25 MG Orally four times a day 1 tablet 6h Jun, Active BuSpar 15 MG Orally 3 times a day 1 tablet 8h Not-Taking HydrOXYzine HCl 25 MG Orally TID PRN 4 tablets Active RESULTS No Results PROCEDURES No Known [...] inpatient 96 hour hold for SI at [facility] 2013?
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
[2018-06-24] MEDS ORDERED: ORPHENADRINE 60 MG/2 ML (NORFLEX) AMP IM ONE (00:30)
[2018-06-24] MEDS ORDERED: KETOROLAC 60 MG/2 ML VIAL IM ONE (00:30)
[2018-06-24] MEDS ORDERED: diphenhydrAMINE 50 MG/ML INJ (BENADRYL) IM ONE (00:30)
--- NOTE | 2018-06-24 00:34 | ED Headache ---
General Chief Complaint: Head/Cervical Problems Stated Complaint: MIGRAINE X 3 DAYS Nursing Triage Note: PATIENT AMBULATORY TO ER WITH COMPLAINT OF MIGRAINE HEADACHE X 3 DAYS. PATIENT IS CAOX 4, STATES HEADACHE IS SIMILAR TO PREVIOUS HEADACHES IN THE PAST. PATIENT TOOK IBUPROFEN 1000 MG AT 17:00 TODAY. Nursing Sepsis Screen: No Definite Risk Allergies and Home Medications Allergies Coded Allergies: Penicillins (Verified Allergy, Unknown, RASH, 11/27/13) Sulfa (Sulfonamide Antibiotics) (Unverified Allergy, Unknown, 12/10/13) iodine (Verified Allergy, Unknown, rash, itching, 03/09/15) latex (Verified Allergy, Unknown, RASH, 11/27/13) Home Medications Azithromycin 250 Mg Tablet, 250 MG PO UD TAKE 2 TABLETS ON DAY ONE THEN TAKE 1 TABLET DAILY FOR FOUR MORE DAYS Prescribed by: ADNREA JOSHUA on 09/26/17 1013 Benzonatate 100 Mg Capsule, 100 MG PO TID Prescribed by: ANDREA JSOHUA on 09/26/17 1014 Past Agshkmr-Xuqpcv-Wxxeul Hx Patient Social History Alcohol Use: Denies Use Recreational Drug Use: Yes Drug of Choice: MARIJUANA Smoking Status: Current Everyday Smoker Type Used: Cigarettes 2nd Hand Smoke Exposure: Yes Recent Foreign Travel: No Contact w/Someone Who Travel: No Recent Infectious Disease Expo: No Recent Hopitalizations: No Physical Abuse: No Sexual Abuse: No Mistreated: No Fear: No Immunizations Up To Date Tetanus Booster (TDap): Unknown PED Vaccines UTD: Yes Seasonal Allergies Seasonal Allergies: No Past Medical History Surgeries: Yes (LIPOMA REMOVED FROM BACK) Hysterectomy, Tubal Ligation Respiratory: No Cardiac: No Hypertension Neurological: Yes Headaches /Migraines Reproductive Disorders: Yes [employer] History: Hysterectomy Sexually Transmitted Disease: Yes (HERPES, HX TRICHOMONAS) Genitourinary: No Gastrointestinal: No Musculoskeletal: No Endocrine: No Cancer: Yes (? CERVICAL CANCER--SELF REPORTED BY PT) Cervical Psychosocial: Yes (PBA) ADD/ADHD, Anxiety, PTSD, Bipolar, Depression Integumentary: No Blood Disorders: No Family Medical History FH: cancer grandparents Psychosocial problem 19 MOTHER grandparents Physical Exam Vital Signs Vital Signs - First Documented 06/23/18 23:48 Temp 98.4 Pulse 86 B/P (MAP) 122/88 (99) Capillary Refill : Less Than 3 Seconds Height, Weight, BMI Height: 5'7.00" Weight: 130lbs. 0oz. 58.794385rm; 20.3 BMI Method:Stated Progress/Results/Core Measures Results/Orders My Orders Orders - SHAI TOVAR DO Ketorolac Injection (Toradol Injection) (06/24/18 00:30) Orphenadrine Injection (Norflex Injectio (06/24/18 00:30) Diphenhydramine Injection (Benadryl Inje (06/24/18 00:30) Vital Signs/I&O 06/23/18 23:48 Temp 98.4 Pulse 86 B/P (MAP) 122/88 (99) Blood Pressure Mean: 99 Departure Impression Primary Impression: Headache Disposition: 01 HOME, SELF-CARE Condition: Improved Departure-Patient Inst. Referrals: [facility] (PCP/Family) Primary Care Physician Patient Instructions: Headache, Adult (DC) Add. Discharge Instructions: LOTS OF CLEAR LIQUIDS TYLENOL AND MOTRIN NEEDED FOR PAIN FOLLOW UP WITH [facility] IN 2-3 DAYS IF NO BETTER All discharge instructions reviewed with patient and/or family. Voiced understanding. SHAI TOVAR DO Jun 24, 2018 00:34
[2018-06-24 01:16] VITALS: BP 104/78
== END 2018-06-24 01:16 | disposition home or self-care (01) ==
LOC: EDUNIT# 21:43 → ER 21:44
DX: R51 Headache (principal); I10 Essential (primary) hypertension; F90.9 Attention-deficit hyperactivity disorder, unspecified type; F41.9 Anxiety disorder, unspecified; F43.10 Post-traumatic stress disorder, unspecified; F31.9 Bipolar disorder, unspecified; F12.10 Cannabis abuse, uncomplicated; F17.210 Nicotine dependence, cigarettes, uncomplicated; Z86.19 Personal history of other infectious and parasitic diseases; Z88.0 Allergy status to penicillin; Z85.41 Personal history of malignant neoplasm of cervix uteri; Z98.51 Tubal ligation status; Z90.710 Acquired absence of both cervix and uterus; Z88.2 Allergy status to sulfonamides; Z91.040 Latex allergy status; Z91.041 Radiographic dye allergy status
CPT/HCPCS: 99284

== ENCOUNTER → 2018-10-18 | Outpatient (CLI) | payer OTHER ==
[~2018-10-18] MED LIST changes: +METR-143 PO; -METR250T32 PO
--- NOTE | 2018-10-18 12:30 | Diagnostic Imaging Report ---
PROCEDURE: US Non-ob pelvis comp/trans. TECHNIQUE: Multiple realtime grayscale images were obtained of the pelvis in various projections endovaginally. Transabdominal imaging was also performed. INDICATION: Dyspareunia. FINDINGS: The uterus is surgically absent. The ovaries were not visualized. There is moderate bowel in the adnexa bilaterally. No adnexal mass is seen. No free fluid is detected. IMPRESSION: Status post hysterectomy. No pelvic mass or fluid collection is identified. Dictated by: Dictated on workstation # [id number]
== END ==
LOC: RAD 11:14
PROVIDERS: ATTEND Obstetrics & Gynecology
DX: N94.12 Deep dyspareunia (principal); N83.201 Unspecified ovarian cyst, right side; Z90.710 Acquired absence of both cervix and uterus
CPT/HCPCS: 76830; 76856

== ENCOUNTER 2018-11-09 12:58 | Outpatient (CLI) | payer OTHER ==
[~2018-11-09] VITALS: Ht 170.2 cm; Wt 61.2 kg
[2018-11-09 13:04] VITALS: BP 115/84
[2018-11-09] MEDS ORDERED: CLON0.5T PO (13:16)
[2018-11-09] MEDS ORDERED: QUET25TA PO (13:16)
[2018-11-09] MEDS ORDERED: LAMO200T2 PO (13:16)
[2018-11-09] MEDS ORDERED: FLUO20CA42 PO (13:16)
[2018-11-09] MEDS ORDERED: QUET100T PO (13:16)
[2018-11-09] MEDS ORDERED: PRAZ2CAP PO (13:16)
[2018-11-09 13:39] LABS: BASOPHILS % (AUTO) 1 % (0-10); EOSINOPHILS # (AUTO) 0.2 10^3/uL (0.0-0.3); EOSINOPHILS % (AUTO) 3 % (0-10); HEMATOCRIT 44 % (35-52); LYMPHOCYTES # (AUTO) 2.6 X 10^3 (1.0-4.0); LYMPHOCYTES % (AUTO) 39 % (12-44); MEAN CORPUSCULAR HEMOGLOBIN 30 PG (25-34); MEAN CORPUSCULAR HGB CONC 34 G/DL (32-36); MEAN CORPUSCULAR VOLUME 88 FL (80-99); MEAN PLATELET VOLUME 10.1 FL (7.4-10.4); MONOCYTES # (AUTO) 0.5 X 10^3 (0.0-1.0); MONOCYTES % (AUTO) 7 % (0-12); NEUTROPHILS # (AUTO) 3.3 X 10^3 (1.8-7.8); NEUTROPHILS % (AUTO) 50 % (42-75); PLATELET COUNT 227 10^3/uL (130-400); RED CELL DISTRIBUTION WIDTH 13.1 % (10.0-14.5); WHITE BLOOD COUNT 6.5 10^3/uL (4.3-11.0)
== END 2018-11-09 13:27 | disposition home or self-care (01) ==
LOC: PREOP 12:58
PROVIDERS: ATTEND Obstetrics & Gynecology
DX: Z01.812 Encounter for preprocedural laboratory examination (principal); Z11.2 Encounter for screening for other bacterial diseases; N94.10 Unspecified dyspareunia; R10.2 Pelvic and perineal pain; D64.9 Anemia, unspecified
CPT/HCPCS: 36415; 85025; 87081

== ENCOUNTER 2018-11-14 11:25 | Day surgery (SDC) | payer OTHER ==
[~2018-11-14] VITALS: Ht 170.2 cm; Wt 61.2 kg
--- NOTE | 2018-11-14 11:08 | Discharge Instructions ---
Discharge Instructions Discharge Medications New, Converted or Re-Newed RX: RX on Chart Patient Instructions Patient Instructions: as directed Return to The Hospital For: as directed Activity & Diet Discharge Diet: No Restrictions Activity as Tolerated: No Orders-Post D/C & Referrals Follow Up Appt: Call to make follow up appt. for patient in 1 weeks. Activity: Rest for 24 hours, than as tolerated. Wound Care: May remove Band-Aid tomorrow. Replace as desired. Keep incisions clean and dry. Wash daily with soap and water. Please call in RX to patient pharmacy. Diet: As tolerated-Clear Liquids only if nauseated. shower or tub bathe as desired. No driving for 24 hours, no alcoholic beverages for 24 hours, and nothing per vagina (no tampons, douching, or intercourse) for 2 weeks. Patient to return to the clinic as soon as possible for: Temperature greater than 101F, Severe Pain, Foul discharge from incision or vagina, Excessive Bleeding (more than a period). FRANSICO WILSON MD Nov 14, 2018 11:08
[~2018-11-14 11:25] MED LIST changes: +D5 LR IV SOLUTION 1,000 ML IV SCH; +FLUO20CA42 PO; +KETOROLAC 30 MG/ML VIAL IVP ONE; +LAMO200T2 PO; +MEPERIDINE (DEMEROL) INJ 100 MG/ML IM ONE; +ONDANSETRON 4 MG/2 ML (SDV) Z0FRAN IVP PRN; +PRAZ2CAP PO; +PROMETHAZINE INJ 25 MG/ML (PHENERGAN) AMP IM ONE; +QUET100T PO; +QUET25TA PO; +oxyCODONE/APAP 5/325MG (PERCOCET 5) TABLET PO PRN
[2018-11-14] MEDS ORDERED: ceFAZolin INJECTION 1,000 MG in WATER (STERILE) FOR INJECTION 10 ML IV ONE (11:30)
[2018-11-14] MEDS ORDERED: ESTROGENS CONJ IV 25 MG/5 ML (PREMARIN) VIAL IV ONE (11:30)
[2018-11-14] MEDS: LACTATED RINGERS 1,000 ML IV PRN ×2 (12:03→13:40)
[2018-11-14 12:11] VITALS: BP 121/85
[2018-11-14] MEDS ORDERED: DEXAMETHASONE 10 MG/ML (DECADRON) 1 ML VIAL ONE (12:12)
[2018-11-14] MEDS ORDERED: ONDANSETRON 4 MG/2 ML (SDV) Z0FRAN ONE (12:12)
[2018-11-14] MEDS ORDERED: NEOSTIGMINE 1 MG/ML 5 ML SYRINGE ONE (12:12)
[2018-11-14] MEDS ORDERED: MIDAZOLAM 2 MG/2 ML (VERSED) VIAL ONE (12:12)
[2018-11-14] MEDS ORDERED: LIDOCAINE PF 2% 5 ML (XYLOCAINE) VIAL ONE (12:12)
[2018-11-14] MEDS ORDERED: GLYCOPYRROLATE 0.2 MG/ML (ROBINUL) 2 ML VIAL ONE (12:12)
[2018-11-14] MEDS ORDERED: ROCURONIUM 10 MG/ML 5 ML SYRINGE IV ONE (12:12)
[2018-11-14] MEDS ORDERED: SEVOFLURANE (ULTANE) 15 ML INHAL SOLN ONE ×6 (12:12→14:17)
[2018-11-14] MEDS ORDERED: fentaNYL INJECTION 100 MCG/2 ML AMP ONE ×2 (12:12→13:58)
[2018-11-14] MEDS ORDERED: proPOfol 200 MG/20 ML (DIPRIVAN) VIAL IV ONE (12:12)
[2018-11-14] MEDS ORDERED: KETOROLAC 30 MG/ML VIAL ONE (12:12)
[2018-11-14] MEDS ORDERED: BUP/EPI 0.5% 1:200,000 (SENSORCAINE) 30 ML VIAL ONE (12:13)
--- NOTE | 2018-11-14 12:40 | Progress Note-Pre Operative ---
Pre-Operative Progress Note H&P Reviewed The H&P was reviewed, patient examined and no changes noted. Date Seen by Provider: Nov 14, 2018 Time Seen by Provider: 12:39 Date H&P Reviewed: Nov 14, 2018 Time H&P Reviewed: 12:39 Pre-Operative Diagnosis: CHRONIC PELVIC PAIN/ENDOMETRIOSIS FRANSICO WILSON MD Nov 14, 2018 12:40
--- NOTE | 2018-11-14 12:41 | Progress Note-Post Operative ---
Post-Operative Progess Note Surgeon (s)/Fish Bait Picker (s) Surgeon FRANSICO WILSON MD Fish Bait Picker: Yaima Jessica Pre-Operative Diagnosis CHRONIC PELVIC PAIN/ENDOMETRIOSIS Post-Operative Diagnosis same with pathology pending Procedure & Operative Findings Date of Procedure 11/14/18 Procedure Performed/Findings laparoscopic bilateral oophorectomy and laparoscopic appendectomy laparoscopic adhesio lysis laparoscopic destruction of endometriosis Anesthesia Type GETA Estimated Blood Loss Estimated blood loss (mL): min Specimens/Packing Specimens Removed appendix and ovaries Packing: none FRANSICO WILSON MD Nov 14, 2018 12:41
[2018-11-14] MEDS ORDERED: morphine INJ 10 MG/ML 1ML (SYR OR VIAL) IVP ONE (14:15)
[2018-11-14] MEDS ORDERED: ONDANSETRON 4 MG/2 ML (SDV) Z0FRAN IVP PRN (14:15)
[2018-11-14] MEDS ORDERED: ESTROGENS CONJ IV 25 MG/5 ML (PREMARIN) VIAL ONE (14:17)
[2018-11-14] MEDS ORDERED: WATER (STERILE) FOR INJECTION 10 ML ONE (14:17)
[2018-11-14] MEDS: HYDROmorphone 2 MG/ML VIAL (DILAUDID) IV ONE ×2 (14:42→14:58)
[2018-11-14 15:05] VITALS: BP 129/76
--- NOTE | 2018-11-14 15:25 | Anesthesia-General Post-Op ---
General Patient Condition Mental Status/LOC: Same as Preop Cardiovascular: Satisfactory Nausea/Vomiting: Absent Respiratory: Satisfactory Pain: Controlled (Still C/O pain, but states she will be fine with PO meds from Dr Joseph.) Complications: Absent Post Op Complications Complications None Follow Up Care/Instructions Patient Instructions None needed. Anesthesia/Patient Condition Patient Condition Patient is doing well, C/O pain which is to be expected, stable vital signs, no apparent adverse anesthesia problems. FLORES PARK DO Nov 14, 2018 15:25
[2018-11-14 15:35] VITALS: BP 114/74
[2018-11-14 16:05] VITALS: BP 119/78
[2018-11-14 16:45] VITALS: BP 119/78
[2018-11-14 17:05] VITALS: BP 119/78
--- NOTE | 2018-11-14 18:48 | OPERATIVE REPORT ---
DATE OF SERVICE: 11/14/2018 PREOPERATIVE DIAGNOSES: Chronic pelvic pain, history of endometriosis. POSTOPERATIVE DIAGNOSES: Chronic pelvic pain, history of endometriosis with extensive pelvic adhesions and appendiceal adhesions and endometriosis. OPERATIVE PROCEDURE: Bilateral oophorectomies, laparoscopic appendectomy and extensive laparoscopic adhesiolysis and destruction of endometriosis. OPERATIVE DESCRIPTION: With the patient in supine position under satisfactory general anesthesia, she was prepped and draped in the usual fashion for abdominal and vaginal surgery after being repositioned in the dorsal lithotomy position in the [facility]. Urinary bladder was drained with a straight catheter and then a moistened Kerlix was used to pack the vagina to distend the upper vagina. The patient was then brought in low dorsal lithotomy position. A 5 mm incision was made in the patient's left upper quadrant and a Veress needle was placed through that incision, correct placement confirmed with a waterdrop test and the abdomen insufflated with 2.4 liters of carbon dioxide. Veress needle was removed and a 5 mm Optiview laparoscopic port was placed under direct vision. The abdominal wall was transilluminated and ports of 12 mm and 5 mm were placed through an infraumbilical incision and a suprapubic incision respectively. All 3 incision sites were infiltrated with 0.25% Marcaine with epinephrine prior to incision. The patient was placed in Trendelenburg allowing the bowel to spill out of the pelvis. The bowel was somewhat tethered into the pelvis due to some fairly extensive adhesions. The right ovary was visible. The left ovary was occluded by the adhesions. The appendix was densely adherent to the pelvic brim and to the right IP ligament and to the right ovary. Extensive adhesiolysis was undertaken to free the sigmoid and rectosigmoid from the vaginal cuff from the cul-de-sac from the left pelvic side wall and left pelvic brim and from the left ovary. The left ureter was eventually identified. It was seemed to peristalse just adjacent to the IP ligament. The IP of the left ovary was grasped and elevated and then skeletonized on to the left IP ligament for removal later. Hemostasis was complete. There were some endometriosis implants on the left pelvic sidewall that were touched with electrocautery to destroy them. Attention was then turned to the right ovary. The adhesion of the appendix to the ovary were gradually dissected free. The cecum was very close to this area and was adherent to the pelvic brim as well. Those adhesions were taken down with the cecum free and the appendix freed and the ovary itself was freed from its adhesions into the ovarian fossa on the right and then the right ovary was skeletonized on to the IP ligament on the right. The right ureter was a little more medial to the IP ligament then was on the left, but it was seemed to peristalse and it was well out of the way. The appendix was then grasped and elevated. More adhesiolysis was performed to free the appendix completely and then the mesoappendix was perforated close to the base of the appendix. The base of the appendix was clamped with an Endo-SERA and then in that interim, it was fired. The appendix was from the cecum. A second firing of the same instrument across the mesoappendix severed that organ from its attachments. The right ovary was grasped and elevated and resected using the Endo-SERA as well across the IP ligament, taking care to avoid vascular and urologic structures in the area and then the same procedure performed on the left. With all three organs freed, they were placed in an Endobag and eventually brought out through the umbilical incision. The pelvis was copiously irrigated. After placing the specimens in an Endobag, there was no bleeding noted. There was good hemostasis. There was no remaining abnormal pathology. The appendix was copiously irrigated and the irrigant was aspirated out. With hemostasis assured, no remaining pathology. There was one final fairly large adhesion of the cecum to the right pelvic brim and right terminus of the pericolic gutter. This was adhesed over to the right side and then hemostasis was once again confirmed with no abnormal pathology. The procedure was terminated. The Endobag was brought out through the umbilical incision after enlarging the fascial incision slightly with Hernández scissors by using them as a wedge to enlarge the incision. Each specimen was labeled individually and sent to pathology separately. The operative instruments have been removed. The balance of the ports were removed under direct vision. No bleeding was noted at any of the port sites. The abdomen was evacuated of insufflating gas in the process of removing the ports. The skin incisions were closed with nylon sutures after first closing the fascia at the infraumbilical incision with a [id number] suture of 2-0 Vicryl. Sponge and needle counts were correct. Speculum was replaced in the vagina after removing the Kerlix and there was no bleeding. There was no trauma to the vagina. The patient tolerated the procedure well. Sponge and needle counts were correct. Estimated blood loss was minimal. The patient was uneventfully awakened from her general anesthesia and transferred to recovery room in stable condition with plans for discharge home PAR. Job ID: [id number] DocumentID: [id number] Dictated Date: 11/14/2018 14:03:17 English As A Second Language Teacher Date: 11/14/2018 18:47:57 Dictated By: FRANSICO WILSON MD
== END 2018-11-14 17:05 | disposition home or self-care (01) ==
LOC: SDC 11:25
PROVIDERS: ATTEND Obstetrics & Gynecology
DX: N80.3 Endometriosis of pelvic peritoneum (principal); K38.8 Other specified diseases of appendix; N73.6 Female pelvic peritoneal adhesions (postinfective); N83.11 Corpus luteum cyst of right ovary; N83.12 Corpus luteum cyst of left ovary; F31.9 Bipolar disorder, unspecified; F41.9 Anxiety disorder, unspecified; F90.9 Attention-deficit hyperactivity disorder, unspecified type; F43.10 Post-traumatic stress disorder, unspecified; F17.210 Nicotine dependence, cigarettes, uncomplicated; Z79.899 Other long term (current) drug therapy; Z88.0 Allergy status to penicillin; Z88.2 Allergy status to sulfonamides

== ENCOUNTER 2018-12-09 00:51 | Emergency (ER) | payer OTHER ==
[~2018-12-09] VITALS: Ht 170.2 cm; Wt 61.2 kg
[~2018-12-09 00:51] MED LIST changes: -D5 LR IV SOLUTION 1,000 ML IV SCH; -KETOROLAC 30 MG/ML VIAL IVP ONE; -MEPERIDINE (DEMEROL) INJ 100 MG/ML IM ONE; -ONDANSETRON 4 MG/2 ML (SDV) Z0FRAN IVP PRN; -PROMETHAZINE INJ 25 MG/ML (PHENERGAN) AMP IM ONE; -oxyCODONE/APAP 5/325MG (PERCOCET 5) TABLET PO PRN
[2018-12-09] MEDS ORDERED: ESTR2TAB (01:20)
[2018-12-09 01:35] LABS: BILIRUBIN,URINE NEGATIVE (NEGATIVE); CLARITY,URINE VERY CLOUDY; COLOR,URINE YELLOW; GLUCOSE, URINE (UA) NEGATIVE (NEGATIVE); KETONES,URINE NEGATIVE (NEGATIVE); LEUKOCYTE ESTERASE ,URINE 1+ (NEGATIVE); NITRITE,URINE NEGATIVE (NEGATIVE); PH,URINE 7 (5-9); PROTEIN,URINE 1+ (NEGATIVE); UROBILINOGEN,URINE 4 MG/DL (NORMAL)
[2018-12-09 01:46] LABS: BACTERIA,URINE MODERATE /HPF; WBC,URINE 0-2 /HPF
[2018-12-09] MEDS ORDERED: KETOROLAC 30 MG/ML VIAL IVP ONE (02:30)
--- NOTE | 2018-12-09 02:37 | ED Abdominal Pain ---
General Chief Complaint: Trauma-Non Activation Stated Complaint: PAIN ON LEFT SIDE Nursing Triage Note: fell out of bed, left sided abdominal pain. Sepsis Screen: No Definite Risk Source of Information: Patient, Family Exam Limitations: No Limitations History of Present Illness Date Seen by Provider: Dec 09, 2018 Time Seen by Provider: 02:16 Initial Comments Patient presents to ER by private conveyance with family and chief complaint that she's having some left-sided abdominal pain for the past 7 days. She said she had a fall last Monday just prior to the pain starting in her left abdomen. She denies striking her head lose consciousness. She's not on blood thinners. She does have a history of bipolar disorder. 3 weeks prior to today had microscopic surgery by Dr. Joseph to remove her ovaries. Prior to that she's had a tubal ligation and hysterectomy. She says she started having pain on the left side of her abdomen and left flank right around the area of one of her laparoscopic scars. She has no discoloration, chest pain, shortness of breath, weakness, dysuria or history of kidney stones. She's had no fevers or chills. She took Advil 4 tablets every day with her last dose being over 24 hours ago. She's had no nausea, decreased appetite, constipation or diarrhea. She says that she saw her surgeon in the [facility] and he told her pain she should come to the ER for check up. She denies vaginal bleeding or discharge. She denies a history of a sore throat runny nose. Location Injury Occurred: home Allergies and Home Medications Allergies Coded Allergies: Penicillins (Verified Allergy, Unknown, RASH, 11/27/13) Sulfa (Sulfonamide Antibiotics) (Unverified Allergy, Unknown, 12/10/13) iodine (Verified Allergy, Unknown, rash, itching, 03/09/15) latex (Verified Allergy, Unknown, RASH, 11/27/13) Patient Home Medication List Home Medication List Reviewed: Yes Review of Systems Review of Systems Constitutional: No chills, No diaphoresis EENTM: No Blurred Vision, No Double Vision Respiratory: Denies Cough, Denies Shortness of Air Cardiovascular: Denies Chest Pain, Denies Edema Gastrointestinal: Denies Abdomen Distended; Abdominal Pain; Denies Constipated , Denies Diarrhea, Denies Nausea, Denies Poor Fluid Intake, Denies Vomiting Genitourinary: Denies Burning, Denies Discharge Musculoskeletal: No back pain, No joint pain Skin: No pruritus, No rash Psychiatric/Neurological: Denies Anxiety, Denies Depressed Past Udrskeg-Lwsmjv-Cohzws Hx Patient Social History Alcohol Use: Denies Use Recreational Drug Use: Yes Drug of Choice: cannibus Smoking Status: Current Everyday Smoker Type Used: Cigarettes 2nd Hand Smoke Exposure: Yes Recent Foreign Travel: No Contact w/Someone Who Travel: No Recent Infectious Disease Expo: No Recent Hopitalizations: No Immunizations Up To Date Tetanus Booster (TDap): Unknown PED Vaccines UTD: Yes Seasonal Allergies Seasonal Allergies: No Past Medical History Surgeries: Yes (LIPOMA REMOVED FROM BACK) Appendectomy, Hysterectomy, Oophorectomy, Tubal Ligation Respiratory: No Cardiac: No Hypertension Neurological: Yes Headaches /Migraines : No 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 CERVICAL CANCER--SELF REPORTED BY PT) Cervical Psychosocial: Yes (PBA) ADD/ADHD, Anxiety, PTSD, Bipolar, Depression Integumentary: No Blood Disorders: No Family Medical History FH: cancer grandparents Psychosocial problem 19 MOTHER grandparents Physical Exam Vital Signs Vital Signs - First Documented 12/09/18 01:13 Temp 96.3 Pulse 83 Resp 20 B/P (MAP) 112/72 (85) Pulse Ox 97 O2 Delivery Room Air Capillary Refill : Less Than 3 Seconds Height/Weight/BMI Height: 5'7.00" Weight: 135lbs. 0.0oz. [id number]; 21.1 BMI Method:Stated General Appearance: WD/WN, mild distress HEENT: PERRL/EOMI, normal ENT inspection, pharynx normal Neck: non-tender, full range of motion, normal inspection Respiratory: chest non-tender, lungs clear, normal breath sounds, no respiratory distress, no accessory muscle use Cardiovascular: normal peripheral pulses, regular rate, rhythm Peripheral Pulses: 2+ Radial Pulses (R), 2+ Radial Pulses (L) Gastrointestinal: normal bowel sounds, no organomegaly (negative for McBurney' s point tenderness or Sampson sign), guarding (left upper quadrant); No rebound; tenderness (and left upper quadrant); No mass; other (. Her scalp wounds are intact, dry, nonerythematous, nontender without induration or fluctuance) Back: normal inspection, no CVA tenderness, no vertebral tenderness Neurologic/Psychiatric: alert, normal mood/affect, oriented x 3 Skin: normal color, warm/dry Progress/Results/Core Measures Results/Orders Lab Results Laboratory Tests Test 12/09/18 01:25 12/09/18 03:00 Range/Units Urine Color YELLOW Urine Clarity VERY CLOUDY H Urine pH 7 5-9 Urine Specific Randolph 1.010 L 1.016-1.022 Urine Protein 1+ H NEGATIVE Urine Glucose (UA) NEGATIVE NEGATIVE Urine Ketones NEGATIVE NEGATIVE Urine Nitrite NEGATIVE NEGATIVE Urine Bilirubin NEGATIVE NEGATIVE Urine Urobilinogen 4 H NORMAL MG/DL Urine Leukocyte Esterase 1+ H NEGATIVE Urine RBC (Auto) NEGATIVE NEGATIVE Urine RBC NONE /HPF Urine WBC 0-2 /HPF Urine Squamous Epithelial Cells 10-25 H /HPF Urine Crystals NONE /LPF Urine Bacteria MODERATE H /HPF Urine Casts NONE /LPF Urine Mucus SMALL H /LPF Urine Culture Indicated NO Urine Opiates Screen NEGATIVE NEGATIVE Urine Oxycodone Screen NEGATIVE NEGATIVE Urine Methadone Screen NEGATIVE NEGATIVE Urine Propoxyphene Screen NEGATIVE NEGATIVE Urine Barbiturates Screen NEGATIVE NEGATIVE Ur Tricyclic Antidepressants Screen NEGATIVE NEGATIVE Urine Phencyclidine Screen NEGATIVE NEGATIVE Urine Amphetamines Screen NEGATIVE NEGATIVE Urine Methamphetamines Screen NEGATIVE NEGATIVE Urine Benzodiazepines Screen NEGATIVE NEGATIVE Urine Cocaine Screen NEGATIVE NEGATIVE Urine Cannabinoids Screen POSITIVE H NEGATIVE White Blood Count 9.8 4.3-11.0 10^3/uL Red Blood Count 4.17 L 4.35-5.85 10^6/uL Hemoglobin 12.8 11.5-16.0 G/DL Hematocrit 37 35-52 % Mean Corpuscular Volume 90 80-99 FL Mean Corpuscular Hemoglobin 31 25-34 PG Mean Corpuscular Hemoglobin Concent 34 32-36 G/DL Red Cell Distribution Width 12.9 10.0-14.5 % Platelet Count 209 130-400 10^3/uL Mean Platelet Volume 9.4 7.4-10.4 FL Neutrophils (%) (Auto) 43 42-75 % Lymphocytes (%) (Auto) 45 H 12-44 % Monocytes (%) (Auto) 6 0-12 % Eosinophils (%) (Auto) 7 0-10 % Basophils (%) (Auto) 0 0-10 % Neutrophils # (Auto) 4.2 1.8-7.8 X 10^3 Lymphocytes # (Auto) 4.4 H 1.0-4.0 X 10^3 Monocytes # (Auto) 0.5 0.0-1.0 X 10^3 Eosinophils # (Auto) 0.7 H 0.0-0.3 10^3/uL Basophils # (Auto) 0.0 0.0-0.1 10^3/uL Sodium Level 143 135-145 MMOL/L Potassium Level 4.0 3.6-5.0 MMOL/L Chloride Level 111 H 98-107 MMOL/L Carbon Dioxide Level 23 21-32 MMOL/L Anion Gap 9 5-14 MMOL/L Blood Urea Nitrogen 15 7-18 MG/DL Creatinine 0.73 0.60-1.30 MG/DL Estimat Glomerular Filtration Rate > 60 BUN/Creatinine Ratio 21 Glucose Level 91 70-105 MG/DL Calcium Level 9.1 8.5-10.1 MG/DL Corrected Calcium 9.3 8.5-10.1 MG/DL Total Bilirubin 0.3 0.1-1.0 MG/DL Aspartate Amino Transf (AST/SGOT) 14 5-34 U/L Alanine Aminotransferase (ALT/SGPT) 15 0-55 U/L Alkaline Phosphatase 68 40-136 U/L Total Protein 5.9 L 6.4-8.2 GM/DL Albumin 3.8 3.2-4.5 GM/DL Lipase 46 8-78 U/L Monoscreen NEGATIVE NEGATIVE My Orders Orders - THAD RANKIN Ua Culture If Indicated (12/09/18 00:58) Urine Bedside (12/09/18 00:58) Cbc With Automated Diff (12/09/18 02:28) Comprehensive Metabolic Panel (12/09/18 02:28) Lipase (12/09/18 02:28) Monotest (12/09/18 02:28) Ketorolac Injection (Toradol Injection) (12/09/18 02:30) Ct Abdomen/Pelvis Wo (12/09/18 02:31) Drug Screen Stat (Urine) (12/09/18 02:53) Medications Given in ED Current Medications Medications Dose Ordered Sig/Erich Route Start Time Stop Time Status Last Admin Dose Admin Ketorolac Tromethamine 30 mg ONCE ONCE IVP 12/09/18 02:30 12/09/18 02:31 DC 12/09/18 03:03 30 MG Vital Signs/I&O 12/09/18 01:13 Temp 96.3 Pulse 83 Resp 20 B/P (MAP) 112/72 (85) Pulse Ox 97 O2 Delivery Room Air Blood Pressure Mean: 85 Progress Progress Note : Time: 02:37 Progress Note Patient rates her pain is 10 out of 10 so we'll give Toradol obtain basic labs to include a Monospot and lipase and obtain a noncontrasted CT. Diagnostic Imaging Diagonstic Imaging: CT (noncontrast) Plain Films/CT/US/NM/MRI: abdomen, pelvis Comments No grossly evident traumatic solid organ injury. Small volume nonspecific free fluid in the pelvis. Mild colonic wall thickening within the right and the colon as seen in the setting of infectious or inflammatory colitis. Status post hysterectomy and appendectomy. Reviewed: Reviewed by Me Departure Impression Primary Impression: Abdominal wall pain in left upper quadrant Disposition: HOME, SELF-CARE Condition: Stable Departure-Patient Inst. Decision time for Depature: 04:12 Referrals: [facility] (PCP/Family) Primary Care Physician Patient Instructions: Acute Abdomen (Belly Pain), Adult (DC) Add. Discharge Instructions: We did not find anything surgically dangerous about your abdominal wall pain tonight however if it persists then you should follow-up with primary care for further evaluation and management. For your pain you can use 800 mg of ibuprofen or 1000 mg of Tylenol in addition to a heating pads applied directly to the abdominal wall. Warm baths may be helpful. Return to the ER if you're having intractable nausea vomiting abdominal pain or other worrisome symptoms. All discharge instructions reviewed with patient and/or family. Voiced understanding. THAD RANKIN Dec 09, 2018 02:37
[2018-12-09 03:11] LABS: BASOPHILS % (AUTO) 0 % (0-10); EOSINOPHILS # (AUTO) 0.7 10^3/uL (0.0-0.3); EOSINOPHILS % (AUTO) 7 % (0-10); HEMATOCRIT 37 % (35-52); HEMOGLOBIN 12.8 G/DL (11.5-16.0); LYMPHOCYTES # (AUTO) 4.4 X 10^3 (1.0-4.0); LYMPHOCYTES % (AUTO) 45 % (12-44); MEAN CORPUSCULAR HEMOGLOBIN 31 PG (25-34); MEAN CORPUSCULAR HGB CONC 34 G/DL (32-36); MEAN CORPUSCULAR VOLUME 90 FL (80-99); MEAN PLATELET VOLUME 9.4 FL (7.4-10.4); MONOCYTES # (AUTO) 0.5 X 10^3 (0.0-1.0); MONOCYTES % (AUTO) 6 % (0-12); NEUTROPHILS # (AUTO) 4.2 X 10^3 (1.8-7.8); NEUTROPHILS % (AUTO) 43 % (42-75); PLATELET COUNT 209 10^3/uL (130-400); RED CELL DISTRIBUTION WIDTH 12.9 % (10.0-14.5); WHITE BLOOD COUNT 9.8 10^3/uL (4.3-11.0)
[2018-12-09 03:24] LABS: AMPHETAMINE SCREEN, URINE NEGATIVE (NEGATIVE); BARBITURATE SCREEN URINE NEGATIVE (NEGATIVE); BENZODIAZEPINES SCREEN URINE NEGATIVE (NEGATIVE); CANNABINOID SCREEN, URINE POSITIVE (NEGATIVE); COCAINE SCREEN URINE NEGATIVE (NEGATIVE); METHADONE STAT NEGATIVE (NEGATIVE); METHAMPHETAMINE SCREEN URINE S NEGATIVE (NEGATIVE); OPIATE SCREEN URINE NEGATIVE (NEGATIVE); OXYCODONE STAT NEGATIVE (NEGATIVE); PROPOXYPHENE STAT NEGATIVE (NEGATIVE); TRICYCLIC ANTIDEPRESSANTS SCRE NEGATIVE (NEGATIVE)
--- NOTE | 2018-12-09 03:30 | NUR ---
list of lab orders taken to patient. pt sleeping, no distress noted.
[2018-12-09 03:32] LABS: ALANINE AMINOTRANSFERASE 15 U/L (0-55); ALBUMIN 3.8 GM/DL (3.2-4.5); ALKALINE PHOSPHATASE 68 U/L (40-136); BILIRUBIN,TOTAL 0.3 MG/DL (0.1-1.0); BUN/CREATININE RATIO 21; CALCIUM 9.1 MG/DL (8.5-10.1); CARBON DIOXIDE 23 MMOL/L (21-32); CHLORIDE 111 MMOL/L (98-107); CREATININE SERUM 0.73 MG/DL (0.60-1.30); GFR ESTIMATED > 60; GLUCOSE 91 MG/DL (70-105); LIPASE 46 U/L (8-78); SODIUM 143 MMOL/L (135-145); TOTAL PROTEIN 5.9 GM/DL (6.4-8.2)
[2018-12-09 04:20] VITALS: BP 103/64
--- NOTE | 2018-12-09 06:56 | Diagnostic Imaging Report ---
PROCEDURE: CT abdomen and pelvis without contrast. TECHNIQUE: Multiple contiguous axial images were obtained through the abdomen and pelvis without the use of intravenous contrast. Auto Exposure Controls were utilized during the CT exam to meet ALARA standards for radiation dose reduction. Indication: Persistent left-sided abdominal pain after falling out of bed one week ago. Comparison: 03/25/2016. Discussion: Atelectasis is noted within the lung bases. Normal heart size. No pleural or pericardial fluid. The gallbladder is contracted. The liver, pancreas, stomach, spleen, and adrenal glands are unremarkable. No renal stone or hydronephrosis. Uterus is surgically absent. Urinary bladder is unremarkable. Trace free fluid within the pelvis is likely physiologic. The appendix is surgically absent. Mild constipation. Aorta is normal in caliber. No osseous abnormality identified. There is mild wall thickening of the descending colon and sigmoid colon which is nonspecific and could be due to lack of distention though underlying nonspecific colitis is not excluded. Impression: 1. Questionable colitis within the descending colon. Mild constipation. 2. Otherwise no acute injury identified. 3. Agree with preliminary report. Dictated by: Dictated on workstation # [id number]
== END 2018-12-09 04:24 | disposition home or self-care (01) ==
LOC: EDUNIT# 00:51 → ER 00:53
DX: R10.12 Left upper quadrant pain (principal); I10 Essential (primary) hypertension; G43.909 Migraine, unspecified, not intractable, without status migrainosus; F98.8 Other specified behavioral and emotional disorders with onset usually occurring in childhood and adolescence; F90.9 Attention-deficit hyperactivity disorder, unspecified type; F41.9 Anxiety disorder, unspecified; F43.10 Post-traumatic stress disorder, unspecified; F31.9 Bipolar disorder, unspecified; F12.10 Cannabis abuse, uncomplicated; F17.210 Nicotine dependence, cigarettes, uncomplicated; Z90.49 Acquired absence of other specified parts of digestive tract; Z85.41 Personal history of malignant neoplasm of cervix uteri; Z85.820 Personal history of malignant melanoma of skin; Z98.51 Tubal ligation status; Z90.710 Acquired absence of both cervix and uterus; Z88.0 Allergy status to penicillin; Z88.2 Allergy status to sulfonamides; Z91.041 Radiographic dye allergy status; Z91.040 Latex allergy status
CPT/HCPCS: 36415; 74176; 80053; 80306; 81000; 83690; 84703; 85025; 86308

== ENCOUNTER 2019-01-14 09:30 | Emergency (ER) | payer OTHER ==
[~2019-01-14] VITALS: Ht 170.2 cm; Wt 59.0 kg
[~2019-01-14 09:30] MED LIST changes: +ESTR2TAB
[2019-01-14 10:22] LABS: BACTERIA,URINE NEGATIVE /HPF; BILIRUBIN,URINE NEGATIVE (NEGATIVE); CLARITY,URINE CLEAR; COLOR,URINE YELLOW; GLUCOSE, URINE (UA) NEGATIVE (NEGATIVE); KETONES,URINE NEGATIVE (NEGATIVE); LEUKOCYTE ESTERASE ,URINE 2+ (NEGATIVE); NITRITE,URINE NEGATIVE (NEGATIVE); PH,URINE 6 (5-9); PROTEIN,URINE 1+ (NEGATIVE); RBC,URINE 0-2 /HPF; UROBILINOGEN,URINE NORMAL (NORMAL)
[2019-01-14] MEDS ORDERED: LACTATED RINGERS 1,000 ML IV ONE (10:37)
--- NOTE | 2019-01-14 10:41 | ED Abdominal Pain ---
General Chief Complaint: Abdominal/GI Problems Stated Complaint: ABD/RIGHT FLANK PAIN Nursing Triage Note: PATIENT C/O ABDOMINAL PAIN, STATES SHE HAS HAD PROBLEMS EVER SINCE NOVEMBER WHEN SHE HAD A BLOCKAGE AND 'I HAVE NEVER BEEN THE SAME" DENIES NAUSEA OR VOMITING, STATES SHE HAD A "BLACK RUNNY STOOL LAST NIGHT AROUND 11 PM" Sepsis Screen: No Definite Risk Source of Information: Patient Exam Limitations: No Limitations History of Present Illness Date Seen by Provider: January 14, 2019 Time Seen by Provider: 10:30 Initial Comments The patient presents to ER by private conveyance with her significant other and chief complaint of right sided abdominal pain radiating around to the right flank. No history of kidney stones. She is not having any painful urination discharge. She has a history of a hysterectomy and appendectomy and right ovary taken about [address] Joseph. She's not taken anything for the pain. She is having nausea but no vomiting. She is having some loose stools black colored. She said months ago she was seen for similar episode on her left side that the CT and told her she had a intestinal obstruction and sent her home and told her to follow up with another doctor. She still has her gallbladder. She's not had anything to eat since yesterday. Allergies and Home Medications Allergies Coded Allergies: Penicillins (Verified Allergy, Unknown, RASH, 01/14/19) Sulfa (Sulfonamide Antibiotics) (Unverified Allergy, Unknown, 01/14/19) iodine (Verified Allergy, Unknown, rash, itching, 01/14/19) latex (Verified Allergy, Unknown, RASH, 01/14/19) Home Medications Ondansetron 4 Mg Tab.rapdis, 4 MG PO Q6H PRN for NAUSEA/VOMITING Prescribed by: THAD RANKIN on 01/14/19 1206 Patient Home Medication List Home Medication List Reviewed: Yes Review of Systems Review of Systems Constitutional: No chills, No diaphoresis, No fever EENTM: No Blurred Vision, No Double Vision Respiratory: Denies Cough, Denies Shortness of Air Cardiovascular: Denies Chest Pain, Denies Edema Gastrointestinal: See HPI; Denies Abdomen Distended; Abdominal Pain, Nausea; Denies Poor Fluid Intake, Denies Vomiting Genitourinary: Denies Burning, Denies Discharge Musculoskeletal: No back pain, No joint pain Skin: No pruritus, No rash Past Msqgoxc-Ywxstp-Taxkfd Hx Patient Social History Alcohol Use: Denies Use Recreational Drug Use: Yes Drug of Choice: MARIJUANA Smoking Status: Current Everyday Smoker Type Used: Cigarettes 2nd Hand Smoke Exposure: Yes Recent Foreign Travel: No Contact w/Someone Who Travel: No Recent Infectious Disease Expo: No Recent Hopitalizations: No Physical Abuse: No Sexual Abuse: No Mistreated: No Fear: No Immunizations Up To Date Tetanus Booster (TDap): Unknown PED Vaccines UTD: Yes Seasonal Allergies Seasonal Allergies: No Past Medical History Surgeries: Yes (LIPOMA REMOVED FROM BACK) Appendectomy, Hysterectomy, Oophorectomy, Tubal Ligation Respiratory: No Cardiac: No Hypertension Neurological: Yes Headaches /Migraines : No 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 CERVICAL CANCER--SELF REPORTED BY PT) Cervical Psychosocial: Yes (PBA) ADD/ADHD, Anxiety, PTSD, Bipolar, Depression Integumentary: No Blood Disorders: No Family Medical History FH: cancer grandparents Psychosocial problem 19 MOTHER grandparents Physical Exam Vital Signs Vital Signs - First Documented 01/14/19 09:39 Temp 98.2 Pulse 79 Resp 18 B/P (MAP) 111/81 (91) Pulse Ox 98 Capillary Refill : Less Than 3 Seconds Height/Weight/BMI Height: 5'7.00" Weight: 130lbs. 0.0oz. [id number]; 21.1 BMI Method:Stated General Appearance: WD/WN, no apparent distress HEENT: PERRL/EOMI, normal ENT inspection, pharynx normal Neck: supple Respiratory: lungs clear, normal breath sounds, no respiratory distress, no a ccessory muscle use Cardiovascular: normal peripheral pulses, regular rate, rhythm Gastrointestinal: normal bowel sounds, soft, tenderness (generalized right side without Sampson sign or mesenteric signs.) Extremities: normal range of motion, non-tender, normal inspection, normal capillary refill Neurologic/Psychiatric: alert, normal mood/affect, oriented x 3 Skin: normal color, warm/dry Progress/Results/Core Measures Results/Orders Lab Results Laboratory Tests Test 01/14/19 09:59 01/14/19 10:27 01/14/19 11:22 Range/Units Urine Color YELLOW Urine Clarity CLEAR Urine pH 6 5-9 Urine Specific [place] 1.020 1.016-1.022 Urine Protein 1+ H NEGATIVE Urine Glucose (UA) NEGATIVE NEGATIVE Urine Ketones NEGATIVE NEGATIVE Urine Nitrite NEGATIVE NEGATIVE Urine Bilirubin NEGATIVE NEGATIVE Urine Urobilinogen NORMAL NORMAL MG/DL Urine Leukocyte Esterase 2+ H NEGATIVE Urine RBC (Auto) NEGATIVE NEGATIVE Urine RBC 0-2 /HPF Urine WBC 5-10 H /HPF Urine Squamous Epithelial Cells 10-25 H /HPF Urine Crystals NONE /LPF Urine Bacteria NEGATIVE /HPF Urine Casts NONE /LPF Urine Mucus NEGATIVE /LPF Urine Culture Indicated YES Urine Opiates Screen NEGATIVE NEGATIVE Urine Oxycodone Screen NEGATIVE NEGATIVE Urine Methadone Screen NEGATIVE NEGATIVE Urine Propoxyphene Screen NEGATIVE NEGATIVE Urine Barbiturates Screen NEGATIVE NEGATIVE Ur Tricyclic Antidepressants Screen NEGATIVE NEGATIVE Urine Phencyclidine Screen NEGATIVE NEGATIVE Urine Amphetamines Screen NEGATIVE NEGATIVE Urine Methamphetamines Screen POSITIVE H NEGATIVE Urine Benzodiazepines Screen NEGATIVE NEGATIVE Urine Cocaine Screen NEGATIVE NEGATIVE Urine Cannabinoids Screen POSITIVE H NEGATIVE Urine Test NEGATIVE NEGATIVE White Blood Count 8.7 4.3-11.0 10^3/uL Red Blood Count 4.52 4.35-5.85 10^6/uL Hemoglobin 13.8 11.5-16.0 G/DL Hematocrit 40 35-52 % Mean Corpuscular Volume 89 80-99 FL Mean Corpuscular Hemoglobin 31 25-34 PG Mean Corpuscular Hemoglobin Concent 34 32-36 G/DL Red Cell Distribution Width 12.6 10.0-14.5 % Platelet Count 206 130-400 10^3/uL Mean Platelet Volume 9.6 7.4-10.4 FL Neutrophils (%) (Auto) 60 42-75 % Lymphocytes (%) (Auto) 31 12-44 % Monocytes (%) (Auto) 6 0-12 % Eosinophils (%) (Auto) 2 0-10 % Basophils (%) (Auto) 1 0-10 % Neutrophils # (Auto) 5.3 1.8-7.8 X 10^3 Lymphocytes # (Auto) 2.7 1.0-4.0 X 10^3 Monocytes # (Auto) 0.5 0.0-1.0 X 10^3 Eosinophils # (Auto) 0.2 0.0-0.3 10^3/uL Basophils # (Auto) 0.1 0.0-0.1 10^3/uL Sodium Level 140 135-145 MMOL/L Potassium Level 3.8 3.6-5.0 MMOL/L Chloride Level 110 H 98-107 MMOL/L Carbon Dioxide Level 22 21-32 MMOL/L Anion Gap 8 5-14 MMOL/L Blood Urea Nitrogen 12 7-18 MG/DL Creatinine 0.78 0.60-1.30 MG/DL Estimat Glomerular Filtration Rate > 60 BUN/Creatinine Ratio 15 Glucose Level 97 70-105 MG/DL Calcium Level 8.7 8.5-10.1 MG/DL Corrected Calcium 8.9 8.5-10.1 MG/DL Total Bilirubin 0.4 0.1-1.0 MG/DL Aspartate Amino Transf (AST/SGOT) 12 5-34 U/L Alanine Aminotransferase (ALT/SGPT) 13 0-55 U/L Alkaline Phosphatase 64 40-136 U/L C-Reactive Protein High Sensitivity 0.39 0.00-0.50 MG/DL Total Protein 6.0 L 6.4-8.2 GM/DL Albumin 3.7 3.2-4.5 GM/DL Lipase 40 8-78 U/L My Orders Orders - THAD RANKIN Ua Culture If Indicated (01/14/19 09:37) Urine Culture (01/14/19 09:59) Hcg,Qualitative Urine (01/14/19 10:27) Abdomen/Kub 1view (01/14/19 10:37) Ed Iv/Invasive Line Start (01/14/19 10:37) Lactated Ringers (Lr 1000 Ml Iv Solution (01/14/19 10:37) Cbc With Automated Diff (01/14/19 10:37) Comprehensive Metabolic Panel (01/14/19 10:37) Hs C Reactive Protein (01/14/19 10:37) Drug Screen Stat (Urine) (01/14/19 10:37) Lipase (01/14/19 10:37) Ketorolac Injection (Toradol Injection) (01/14/19 10:45) Ondansetron Injection (Zofran Injectio (01/14/19 10:45) Medications Given in ED Vital Signs/I&O 01/14/19 01/14/19 09:39 12:11 Temp 98.2 Pulse 79 69 Resp 18 20 B/P (MAP) 111/81 (91) 107/77 (87) Pulse Ox 98 98 Blood Pressure Mean: 91 Progress Progress Note : Time: 12:01 Progress Note Patient's pain is significantly improved. She's having no nausea. Her abdominal x-ray is unremarkable. We've discussed with her and recommend some return precautions if she can't control her pain and symptoms with Imodium, Zofran, Tylenol, ibuprofen, heat and rest. Follow-up later in the week with primary care. We've recommended that she can seek a colonoscopy outpatient by her primary care doctor if it's indicated. Diagnostic Imaging Diagonstic Imaging: Xray Plain Films/CT/US/NM/MRI: abdomen Comments NAME: REBAVIOLA MED REC#: [id number] PHYSICIAN: THAD RANKIN MD CC: YANCY LAINEZ MD; THAD RANKIN Page 1 of 1 RADIOLOGY REPORT [facility] [place], [place] CC: YANCY LAINEZ MD; THAD RANKIN Page 1 of 1 RADIOLOGY REPORT NAME: VIOLA BRITTON Carol MED REC#: [id number] PT STATUS: DEP ER : 1985 PHYSICIAN: THAD RANKIN MD ADMIT DATE: 01/14/19/ER Signed Date of Exam: 01/14/19 ABDOMEN/KUB 1VIEW INDICATION: Right-sided pain. TIME OF EXAM: 11:44 a.m. FINDINGS: Single view of the abdomen was obtained. Bowel gas pattern is nonobstructed. No definite radiopaque urinary tract calculi are seen. No free air is identified. IMPRESSION: No acute abnormality is detected. Dictated by: Dictated on workstation # [id number] Dict: 01/14/19 1202 Trans: 01/14/19 1553 Interpreted by: YANCY LAINEZ MD Electronically signed by: YANCY LAINEZ MD 01/14/19 1553 Reviewed: Reviewed by Me Departure Impression Primary Impression: Abdominal pain Qualified Codes: R10.84 - Generalized abdominal pain Additional Impression: Gastroenteritis and colitis, viral Disposition: HOME, SELF-CARE Condition: Improved Departure-Patient Inst. Decision time for Depature: 12:03 Referrals: [facility] (PCP/Family) Primary Care Physician Patient Instructions: Viral Gastroenteritis Add. Discharge Instructions: Drink plenty of fluids and stick with a clear liquid diet until your feeling better. Use Tylenol 1000 mg every 8 hours in addition to ibuprofen 800 mg every 8 hours. You can use an antacid such as omeprazole Prilosec or Pepcid. Use the Zofran 1 tablet every 6 hours as needed for nausea. Use heating pads rest and distraction for your abdominal pain. If your pain is not under control then please return to the nearest ER for further evaluation. Otherwise plan on following up with your primary care doctor. If you continue to have diarrhea after 2 days or you cannot keep up with your fluid intake then you may use Imodium 2 tablets to start and then one tablet every 4 hours afterwards 4 loose watery stools. All discharge instructions reviewed with patient and/or family. Voiced understanding. Scripts Ondansetron (Ondansetron Odt) 4 Mg Tab.rapdis 4 MG PO Q6H PRN for NAUSEA/VOMITING, #12 TAB 0 Refills Prov: THAD RANKIN 01/14/19 THAD RANKIN January 14, 2019 10:41
[2019-01-14] MEDS ORDERED: KETOROLAC 30 MG/ML VIAL IVP ONE (10:45)
[2019-01-14] MEDS ORDERED: ONDANSETRON 4 MG/2 ML (SDV) Z0FRAN IVP ONE (10:45)
[2019-01-14 10:55] LABS: AMPHETAMINE SCREEN, URINE NEGATIVE (NEGATIVE); BARBITURATE SCREEN URINE NEGATIVE (NEGATIVE); BENZODIAZEPINES SCREEN URINE NEGATIVE (NEGATIVE); CANNABINOID SCREEN, URINE POSITIVE (NEGATIVE); COCAINE SCREEN URINE NEGATIVE (NEGATIVE); METHADONE STAT NEGATIVE (NEGATIVE); METHAMPHETAMINE SCREEN URINE S POSITIVE (NEGATIVE); OPIATE SCREEN URINE NEGATIVE (NEGATIVE); OXYCODONE STAT NEGATIVE (NEGATIVE); PROPOXYPHENE STAT NEGATIVE (NEGATIVE); TRICYCLIC ANTIDEPRESSANTS SCRE NEGATIVE (NEGATIVE)
[2019-01-14 11:35] LABS: BASOPHILS # (AUTO) 0.1 10^3/uL (0.0-0.1); BASOPHILS % (AUTO) 1 % (0-10); EOSINOPHILS # (AUTO) 0.2 10^3/uL (0.0-0.3); EOSINOPHILS % (AUTO) 2 % (0-10); HEMATOCRIT 40 % (35-52); HEMOGLOBIN 13.8 G/DL (11.5-16.0); LYMPHOCYTES # (AUTO) 2.7 X 10^3 (1.0-4.0); LYMPHOCYTES % (AUTO) 31 % (12-44); MEAN CORPUSCULAR HEMOGLOBIN 31 PG (25-34); MEAN CORPUSCULAR HGB CONC 34 G/DL (32-36); MEAN CORPUSCULAR VOLUME 89 FL (80-99); MEAN PLATELET VOLUME 9.6 FL (7.4-10.4); MONOCYTES # (AUTO) 0.5 X 10^3 (0.0-1.0); MONOCYTES % (AUTO) 6 % (0-12); NEUTROPHILS # (AUTO) 5.3 X 10^3 (1.8-7.8); NEUTROPHILS % (AUTO) 60 % (42-75); PLATELET COUNT 206 10^3/uL (130-400); RED CELL DISTRIBUTION WIDTH 12.6 % (10.0-14.5); WHITE BLOOD COUNT 8.7 10^3/uL (4.3-11.0)
[2019-01-14 11:54] LABS: ALANINE AMINOTRANSFERASE 13 U/L (0-55); ALBUMIN 3.7 GM/DL (3.2-4.5); ALKALINE PHOSPHATASE 64 U/L (40-136); BILIRUBIN,TOTAL 0.4 MG/DL (0.1-1.0); BUN/CREATININE RATIO 15; CALCIUM 8.7 MG/DL (8.5-10.1); CARBON DIOXIDE 22 MMOL/L (21-32); CHLORIDE 110 MMOL/L (98-107); CREATININE SERUM 0.78 MG/DL (0.60-1.30); GFR ESTIMATED > 60; GLUCOSE 97 MG/DL (70-105); LIPASE 40 U/L (8-78); POTASSIUM 3.8 MMOL/L (3.6-5.0); SODIUM 140 MMOL/L (135-145)
[2019-01-14] MEDS ORDERED: ONDA4TAB11 PO (12:06)
--- NOTE | 2019-01-14 12:07 | Diagnostic Imaging Report ---
INDICATION: Right-sided pain. TIME OF EXAM: 11:44 a.m. FINDINGS: Single view of the abdomen was obtained. Bowel gas pattern is nonobstructed. No definite radiopaque urinary tract calculi are seen. No free air is identified. IMPRESSION: No acute abnormality is detected. Dictated by: Dictated on workstation # [id number]
[2019-01-14 12:11] VITALS: BP 107/77
== END 2019-01-14 12:11 | disposition home or self-care (01) ==
LOC: EDUNIT# 09:30 → ER 09:32
DX: A08.4 Viral intestinal infection, unspecified (principal); I10 Essential (primary) hypertension; G43.909 Migraine, unspecified, not intractable, without status migrainosus; F90.9 Attention-deficit hyperactivity disorder, unspecified type; F41.9 Anxiety disorder, unspecified; F43.10 Post-traumatic stress disorder, unspecified; F31.9 Bipolar disorder, unspecified; F12.10 Cannabis abuse, uncomplicated; F17.210 Nicotine dependence, cigarettes, uncomplicated; Z88.0 Allergy status to penicillin; Z88.2 Allergy status to sulfonamides; Z90.49 Acquired absence of other specified parts of digestive tract; Z86.19 Personal history of other infectious and parasitic diseases; Z85.41 Personal history of malignant neoplasm of cervix uteri; Z90.710 Acquired absence of both cervix and uterus; Z98.51 Tubal ligation status; Z86.018 Personal history of other benign neoplasm; Z91.041 Radiographic dye allergy status; Z91.040 Latex allergy status
CPT/HCPCS: 36415; 74018; 80053; 80306; 81000; 83690; 84703; 85025; 86141; 87088

== ENCOUNTER 2019-05-19 13:18 | Emergency (ER) | payer OTHER ==
[~2019-05-19] VITALS: Ht 167 cm; Wt 56.8 kg
[~2019-05-19 13:18] MED LIST changes: +ONDA4TAB11 PO
[2019-05-19] MEDS ORDERED: IBUPROFEN 800 MG (MOTRIN) TAB PO STA (13:54)
[2019-05-19] MEDS ORDERED: PRD20T PO (13:54)
--- NOTE | 2019-05-19 13:55 | ED EENT ---
History of Present Illness General Chief Complaint: Ear Problems Stated Complaint: R EAR PAIN Nursing Triage Note: c/o R ear pain since yesterday Source: patient Exam Limitations: no limitations (TONEY MOSS STUDENT) History of Present Illness Date Seen by Provider: May 19, 2019 Time Seen by Provider: 13:51 Initial Comments 33yo female presents with R sided ear, neck and jaw pain that started yesterday and got worse. It is painful for her to swallow. Pain is constant and she has tried ibuprofen with some relief. Timing/Duration: gradual Severity: moderate Location: eye (R), throat (TONEY MOSS STUDENT) Location: ear (R), throat Prearrival Treatment: other (slight improvement with ibuprofen. Last dose yesterday.) (PEDRITO CHEN) Allergies and Home Medications Allergies Coded Allergies: Penicillins (Verified Allergy, Unknown, RASH, 01/14/19) Sulfa (Sulfonamide Antibiotics) (Unverified Allergy, Unknown, 01/14/19) iodine (Verified Allergy, Unknown, rash, itching, 01/14/19) latex (Verified Allergy, Unknown, RASH, 01/14/19) Home Medications Ondansetron 4 Mg Tab.rapdis, 4 MG PO Q6H PRN for NAUSEA/VOMITING Prescribed by: THAD RANKIN on 01/14/19 1206 Prednisone 20 Mg Tab, 40 MG PO DAILY Prescribed by: PEDRITO CHEN on 05/19/19 1354 Patient Home Medication List Home Medication List Reviewed: Yes (TONEY MOSS STUDENT) Review of Systems Review of Systems Constitutional: No chills, No fever, No weakness Eyes: No Symptoms Reported Ears: See HPI Nose: no symptoms reported Mouth: other (All teeth pulled 1 month ago) Throat: pain, neck stiffness, painful swallowing Cardiovascular: no symptoms reported Gastrointestinal: no symptoms reported Musculoskeletal: neck pain Skin: no symptoms reported Neurological: Emotional Problems (bipolar) Hematologic/Lymphatic: No Symptoms Reported Immunological/Allergic: no symptoms reported (TONEY MOSS STUDENT) Constitutional: no symptoms reported Eyes: No Symptoms Reported Ears: See HPI Nose: no symptoms reported Mouth: no symptoms reported Throat: see HPI, pain; denies swelling; painful swallowing; denies difficulty with fluids Respiratory: no symptoms reported Cardiovascular: no symptoms reported Gastrointestinal: no symptoms reported Skin: no symptoms reported Neurological: Denies Emotional Problems (h/o bipolar d/o with emotional problems. denies current symptoms), Denies Headache (PEDRITO CHEN) All Other Systems Reviewed Negative Unless Noted: Yes (Negative excepted noted.) (PEDRITO CHEN) Past Zqslwad-Qlvucf-Timnhl Hx Past Med/Social Hx: Reviewed and Corrections made (TONEY MOSS STUDENT) Past Med/Social Hx: Reviewed and Corrections made (PEDRITO CHEN) Patient Social History Alcohol Use: Denies Use Recreational Drug Use: No Drug of Choice: MARIJUANA Type Used: Cigarettes 2nd Hand Smoke Exposure: Yes Recent Foreign Travel: No Contact w/Someone Who Travel: No Recent Infectious Disease Expo: No Recent Hopitalizations: No (TONEY MOSS STUDENT) Immunizations Up To Date Tetanus Booster (TDap): Unknown PED Vaccines UTD: Yes (TONEY MOSS STUDENT) Seasonal Allergies Seasonal Allergies: No (TONEY MOSS STUDENT) Past Medical History Surgeries: Yes (LIPOMA REMOVED FROM BACK) Appendectomy, Hysterectomy, Oophorectomy, Tubal Ligation Respiratory: No Cardiac: No Hypertension Neurological: Yes Headaches /Migraines Reproductive 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 CERVICAL CANCER--SELF REPORTED BY PT) Cervical Psychosocial: Yes (PBA) ADD/ADHD, Anxiety, PTSD, Bipolar, Depression Integumentary: No Blood Disorders: No (TONEY MOSS STUDENT) Respiratory: No Gastrointestinal: No HEENT: No (PEDRITO CHEN) Family Medical History Reviewed Nursing Family Hx (PEDRITO CHEN) FH: cancer grandparents Psychosocial problem 19 MOTHER grandparents No Pertinent Family Hx (PEDRITO CHEN) Physical Exam Vital Signs Vital Signs - First Documented 05/19/19 13:27 Temp 36.8 Pulse 64 Resp 18 B/P (MAP) 120/90 (100) Pulse Ox 99 O2 Flow Rate 0 (PEDRITO CHEN) Height, Weight, BMI Height: 5'7.00" Weight: 130lbs. 0.0oz. 58.808795vo; 20.00 BMI Method:Stated General Appearance: WD/WN, mild distress, thin Eyes: bilateral eye normal inspection Ears: right ear tenderness; bilateral ear auricle normal, bilateral ear canal normal, bilateral ear TM normal Nose: normal inspection Mouth/Throat: other (pharynx errythema with 1mm R top molar area ulcer) Neck: lymphadenopathy (R) Cardiovascular: regular rate, rhythm Respiratory: lungs clear, normal breath sounds Neurologic/Psychiatric: alert, normal mood/affect, oriented x 3 Skin: normal color, warm/dry (TONEY MOSS STUDENT) General Appearance: WD/WN, no apparent distress, thin Ears: right ear tenderness (TTP inferior to the right ear) Nose: normal inspection Mouth/Throat: normal mouth inspection; No excessive drooling, No mandibular swelling, No maxillary swelling, No pharynx swelling, No tongue swollen, No trismus, No uvula swelling; other (pharynx errythema with 1mm R top molar area ulcer) Neck: full range of motion, supple, normal inspection, lymphadenopathy (R); No lymphadenopathy (L) Cardiovascular: normal peripheral pulses, regular rate, rhythm, no murmur Respiratory: lungs clear, normal breath sounds, no respiratory distress, no accessory muscle use Neurologic/Psychiatric: alert, normal mood/affect, oriented x 3 Skin: normal color, warm/dry (PEDRITO CHEN) Progress/Results/Core Measures Results/Orders My Orders Orders - PEDRITO CHEN Ibuprofen Tablet (Motrin Tablet) (05/19/19 13:54) (PEDRITO CHEN) Vital Signs/I&O 05/19/19 05/19/19 13:27 14:00 Temp 36.8 36.8 Pulse 64 64 Resp 18 18 B/P (MAP) 120/90 (100) 120/90 (100) Pulse Ox 99 99 O2 Flow Rate 0 0 (PEDRITO CHEN) Blood Pressure Mean: 100 Departure Impression Primary Impression: Acute pharyngitis, unspecified Qualified Codes: J02.9 - Acute pharyngitis, unspecified Additional Impression: Upper respiratory infection, viral Disposition: 01 HOME, SELF-CARE Condition: Improved Departure-Patient Inst. Decision time for Depature: 14:08 (PEDRITO CHEN) Referrals: [facility] (PCP/Family) Primary Care Physician Patient Instructions: Viral Pharyngitis, Viral Upper Respiratory Infection, Adult (DC) Add. Discharge Instructions: All discharge instructions reviewed with patient and/or family. Voiced understanding. Medications as instructed. Tylenol and motrin OTC as directed for pain. Ice packs or heating pads as needed. Follow-up with your primary care provider for recheck if outpatient if needed. Return to the emergency department for worsened symptoms or any other concerns. Scripts Prednisone (Prednisone) 20 Mg Tab 40 MG PO DAILY, #10 TAB 0 Refills Prov: PEDRITO CHEN 05/19/19 I have seen and evaluated the patient and agree with the above history and physical except where indicated. (PEDRITO CHEN) TONEY MOSS STUDENT May 19, 2019 13:55 PEDRITO CHEN May 19, 2019 14:09
[2019-05-19 14:00] VITALS: BP 120/90
== END 2019-05-19 14:00 | disposition home or self-care (01) ==
LOC: EDUNIT# 13:18 → ER 13:19
DX: J02.9 Acute pharyngitis, unspecified (principal); I10 Essential (primary) hypertension; F90.9 Attention-deficit hyperactivity disorder, unspecified type; F41.9 Anxiety disorder, unspecified; G43.909 Migraine, unspecified, not intractable, without status migrainosus; F43.10 Post-traumatic stress disorder, unspecified; F31.9 Bipolar disorder, unspecified; Z85.41 Personal history of malignant neoplasm of cervix uteri; Z88.0 Allergy status to penicillin; Z88.2 Allergy status to sulfonamides; Z88.8 Allergy status to other drugs, medicaments and biological substances; Z91.040 Latex allergy status; Z77.22 Contact with and (suspected) exposure to environmental tobacco smoke (acute) (chronic); Z90.49 Acquired absence of other specified parts of digestive tract; Z90.710 Acquired absence of both cervix and uterus; Z98.51 Tubal ligation status
CPT/HCPCS: 99283

== ENCOUNTER 2019-07-02 18:30 | Emergency (ER) | payer OTHER ==
[~2019-07-02] VITALS: Ht 170 cm; Wt 56.8 kg
[~2019-07-02 18:30] MED LIST changes: +PRD20T PO
--- NOTE | 2019-07-02 19:12 | ED Upper Extremity ---
General Chief Complaint: Upper Extremity Stated Complaint: PAIN IN LT WRIST AND ELBOW Nursing Triage Note: L wrist and elbow pain, states she fell 1 week ago Nursing Sepsis Screen: No Definite Risk Source: patient Exam Limitations: no limitations History of Present Illness Date Seen by Provider: Jul 02, 2019 Time Seen by Provider: 19:11 Initial Comments 33-year-old female patient presents with complaints of falling approximately one week ago when her dog knocked her down. Patient states she continues to have left wrist and left elbow pain. Denies hitting her head, loss of consciousness, neck pain, back pain. she does report improvement with tylenol and motrin. she denies contacting her family practitioner for symptoms. Location Injury Occurred: outside home Onset: last week Pain/Injury Location: left elbow, left wrist Method of Injury: fell Modifying Factors: Improves With Immobilization; Worse With Movement; Improves With Pain Medication Allergies and Home Medications Allergies Coded Allergies: Penicillins (Verified Allergy, Unknown, RASH, 01/14/19) Sulfa (Sulfonamide Antibiotics) (Unverified Allergy, Unknown, 01/14/19) iodine (Verified Allergy, Unknown, rash, itching, 01/14/19) latex (Verified Allergy, Unknown, RASH, 01/14/19) Home Medications Ondansetron 4 Mg Tab.rapdis, 4 MG PO Q6H PRN for NAUSEA/VOMITING Prescribed by: THAD RANKIN on 01/14/19 1206 Prednisone 20 Mg Tab, 40 MG PO DAILY Prescribed by: PEDRITO CHEN on 05/19/19 1354 Patient Home Medication List Home Medication List Reviewed: Yes Review of Systems Constitutional: no symptoms reported Respiratory: no symptoms reported Cardiovascular: no symptoms reported Gastrointestinal: no symptoms reported Musculoskeletal: see HPI; No back pain; joint pain; No joint swelling, No neck pain Skin: No change in color, No lumps Psychiatric/Neurological: Denies Headache, Denies Numbness, Denies Paresthesia, Denies Tingling, Denies Weakness All Other Systems Reviewed Negative Unless Noted: Yes (Negative excepted noted.) Past Ijhttna-Wagfme-Lznxwx Hx Past Med/Social Hx: Reviewed Nursing Past Med/Soc Hx Patient Social History Alcohol Use: Occasionally Uses Recreational Drug Use: Yes Drug of Choice: MARIJUANA Type Used: Cigarettes 2nd Hand Smoke Exposure: Yes Recent Foreign Travel: No Contact w/Someone Who Travel: No Recent Infectious Disease Expo: No Recent Hopitalizations: No Immunizations Up To Date Tetanus Booster (TDap): Less than 5yrs PED Vaccines UTD: Yes Seasonal Allergies Seasonal Allergies: No Past Medical History Surgeries: Yes (LIPOMA REMOVED FROM BACK) Appendectomy, Hysterectomy, Oophorectomy, Tubal Ligation Respiratory: No Cardiac: No Hypertension Neurological: Yes Headaches /Migraines 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 CERVICAL CANCER--SELF REPORTED BY PT) Cervical Psychosocial: Yes (PBA) ADD/ADHD, Anxiety, PTSD, Bipolar, Depression Integumentary: No Blood Disorders: No Family Medical History Reviewed Nursing Family Hx FH: cancer grandparents Psychosocial problem 19 MOTHER grandparents No Pertinent Family Hx Physical Exam Vital Signs Vital Signs - First Documented 07/02/19 18:42 Temp 36.0 Pulse 103 Resp 18 B/P (MAP) 123/86 (98) Capillary Refill : Less Than 3 Seconds Height, Weight, BMI Height: 5'7.00" Weight: 130lbs. 0.0oz. 58.080570vv; 19.00 BMI Method:Stated General Appearance: WD/WN, no apparent distress HEENT: PERRL/EOMI, pharynx normal Neck: supple, normal inspection Cardiovascular: normal peripheral pulses, regular rate, rhythm, no murmur Respiratory: lungs clear, normal breath sounds, no respiratory distress, no accessory muscle use Shoulder: normal inspection, non-tender, no evidence of injury, normal ROM Elbow/Forearm: normal inspection (nontender. No swelling or ecchymosis of the left forearm.), no evidence of injury, normal ROM, Left, bone tenderness (medial elbow tender), pain (medial left elbow without swelling, ecchymosis, or deformity.) Wrist: Yes bone tenderness (left wrist); No deformity, No ecchymosis; Yes limited ROM, Yes pain (left wrist), Yes soft tissue tenderness (and left wrist); No swelling Hand: normal inspection, non-tender, no evidence of injury, normal ROM, Left Neurologic/Tendon: normal sensation, normal motor functions, normal tendon functions, responds to pain, no evidence tendon injury Neurologic/Psychiatric: no motor/sensory deficits, alert, normal mood/affect, oriented x 3 Skin: normal color, warm/dry; No ecchymosis Progress/Results/Core Measures Results/Orders My Orders Orders - PEDRITO CHEN Elbow, Left, 3 Views (07/02/19 19:20) Wrist, Left, 3 Views Or More (07/02/19 19:20) Vital Signs/I&O 07/02/19 18:42 Temp 36.0 Pulse 103 Resp 18 B/P (MAP) 123/86 (98) Blood Pressure Mean: 98 POS Diagnostic Imaging Diagonstic Imaging: Xray Plain Films/CT/US/NM/MRI: elbow Comments POSDate of Exam:07/02/19 ELBOW, LEFT, 3 VIEWS INDICATION: Pain post fall one week ago TECHNIQUE: 3 views of the left elbow CORRELATION STUDY: None FINDINGS: There is normal alignment of the osseous structures of the elbow. No acute fracture. No abnormal joint effusion. IMPRESSION: 1. Negative for acute bony abnormality of the elbow. Dictated by: Dictated on workstation # [id number] Reviewed: Reviewed by Me (radiology report reviewed by me) Diagonstic Imaging: Xray Plain Films/CT/US/NM/MRI: other (radiology report reviewed by me) Comments WRIST, LEFT, 3 VIEWS OR MORE INDICATION: Pain post fall one week ago TECHNIQUE: 3 views of the left wrist CORRELATION STUDY: None FINDINGS: The osseous structures of the wrist have an unremarkable appearance. Alignment is anatomic. There is no acute bony abnormality. The visualized soft tissues appearing unre markable. IMPRESSION: 1. Negative examination of the wrist. Dictated by: Dictated on workstation # [id number] Reviewed: Reviewed by Me (radiology report reviewed by me) Departure Impression Primary Impression: Contusion of elbow Qualified Codes: S50.02XA - Contusion of left elbow, initial encounter Additional Impression: Contusion of wrist Qualified Codes: S60.212A - Contusion of left wrist, initial encounter Disposition: HOME, SELF-CARE Condition: Improved Departure-Patient Inst. Decision time for Depature: 20:18 Referrals: [facility] (PCP/Family) Primary Care Physician Patient Instructions: Contusion (DC) Add. Discharge Instructions: All discharge instructions reviewed with patient and/or family. Voiced understanding. Tylenol Extra Strength maxh-ahq-ovazuzj as directed for pain. Ibuprofen 600 mg by mouth every 6-8 hours as needed for pain. Elevate the left arm on pillows. Ice pack for 20 minute intervals as needed. Activity as tole rated. Follow-up with your family practitioner for recheck with patient if no improvement in symptoms in 7-10 days. Return to the emergency department for worsened symptoms or any other concerns. PEDRITO CHEN Jul 02, 2019 19:12 POS
--- NOTE | 2019-07-02 20:01 | Diagnostic Imaging Report ---
INDICATION: Pain post fall one week ago TECHNIQUE: 3 views of the left elbow CORRELATION STUDY: None FINDINGS: There is normal alignment of the osseous structures of the elbow. No acute fracture. No abnormal joint effusion. IMPRESSION: 1. Negative for acute bony abnormality of the elbow. Dictated by: Dictated on workstation # [id number]
--- NOTE | 2019-07-02 20:02 | Diagnostic Imaging Report ---
INDICATION: Pain post fall one week ago TECHNIQUE: 3 views of the left wrist CORRELATION STUDY: None FINDINGS: The osseous structures of the wrist have an unremarkable appearance. Alignment is anatomic. There is no acute bony abnormality. The visualized soft tissues appearing unremarkable. IMPRESSION: 1. Negative examination of the wrist. Dictated by: Dictated on workstation # [id number]
[2019-07-02 20:25] VITALS: BP 123/86
== END 2019-07-02 20:25 | disposition home or self-care (01) ==
LOC: EDUNIT# 18:30 → ER 18:32
DX: S50.02XA Contusion of left elbow, initial encounter (principal); S60.212A Contusion of left wrist, initial encounter; I10 Essential (primary) hypertension; G43.909 Migraine, unspecified, not intractable, without status migrainosus; F41.9 Anxiety disorder, unspecified; F90.9 Attention-deficit hyperactivity disorder, unspecified type; F43.10 Post-traumatic stress disorder, unspecified; F31.9 Bipolar disorder, unspecified; Z85.41 Personal history of malignant neoplasm of cervix uteri; Z90.49 Acquired absence of other specified parts of digestive tract; Z98.51 Tubal ligation status; Z90.710 Acquired absence of both cervix and uterus; Z88.0 Allergy status to penicillin; Z88.2 Allergy status to sulfonamides; Z88.8 Allergy status to other drugs, medicaments and biological substances; Z91.040 Latex allergy status; Z77.22 Contact with and (suspected) exposure to environmental tobacco smoke (acute) (chronic); Z79.52 Long term (current) use of systemic steroids; W54.1XXA Struck by dog, initial encounter
CPT/HCPCS: 73080; 73110

== ENCOUNTER 2020-04-16 20:28 | Emergency (ER) | payer OTHER ==
[~2020-04-16 20:28] MED LIST changes: -LAMO200T2 PO; +LAMO200T5 PO
== END 2020-04-16 20:43 | disposition left against medical advice (07) ==
LOC: EDUNIT# 20:28 → ER 20:30
DX: S41.111A Laceration without foreign body of right upper arm, initial encounter (principal); X58.XXXA Exposure to other specified factors, initial encounter

== ENCOUNTER 2022-05-06 12:59 | Emergency (ER) | payer OTHER ==
[~2022-05-06] VITALS: Ht 172.7 cm; Wt 58.9 kg
[~2022-05-06 12:59] MED LIST changes: -ESTR2TAB; +ESTR2TAB3; -NICO-588 TD; +NICO-685 TD
[2022-05-06 13:11] VITALS: BP 113/89
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
--- NOTE | 2022-05-06 14:05 | Diagnostic Imaging Report ---
INDICATION: Chest pain. COMPARISON: 09/26/2017. FINDINGS: Frontal and lateral views of the chest demonstrate normal heart size and pulmonary vascularity. The lungs are clear. There are no signs of infiltrate, pleural effusions or pneumothoraces. The visualized osseous structures show no acute abnormalities. IMPRESSION: 1. No acute process. No signs of infiltrates, effusions or pneumothoraces. Dictated by: Dictated on workstation # [id number]
[2022-05-06] MEDS ORDERED: KETOROLAC 30 MG/ML VIAL IVP ONE (14:15)
== END 2022-05-06 15:06 | disposition home or self-care (01) ==
LOC: EDUNIT# 12:59 → ER 13:01
DX: M94.0 Chondrocostal junction syndrome [Tietze] (principal); F17.200 Nicotine dependence, unspecified, uncomplicated; Z71.6 Tobacco abuse counseling; Z87.828 Personal history of other (healed) physical injury and trauma; Z91.040 Latex allergy status; Z28.310 Unvaccinated for COVID-19
CPT/HCPCS: 71046; 93005